=== PATIENT | male | born 1975 | race Caucasian/White ===

== ENCOUNTER 2017-01-17 15:36 | Inpatient (IN) | payer OTHER ==
[~2017-01-17] VITALS: Ht 170.2 cm; Wt 70.8 kg
[2017-01-17] MEDS ORDERED: ONDANSETRON INJ 2 MG/ML 2 ML VIAL IV STA (15:50)
[2017-01-17] MEDS ORDERED: MoRPHine SULFATE 10 MG/ML CARP/VIAL IV STA (15:50)
[2017-01-17] MEDS ORDERED: IBUP-1050 PO (16:13)
--- NOTE | 2017-01-17 16:22 | DIAGNOSTIC IMAGING REPORT ---
CHEST ONE VIEW PORTABLE CLINICAL HISTORY: Sepsis COMPARISON STUDY: No previous studies for comparison. FINDINGS: The cardiac and mediastinal contours are normal. There is no evidence of focal pulmonary consolidation. There is no evidence of failure. No pleural effusions are visualized.[ IMPRESSION: No active disease in the chest. Electronically signed by: Juanjose Stock M.D. 01/17/2017 4:21 PM Dictated Date/Time: 01/17/2017 4:21 PM
--- NOTE | 2017-01-17 16:24 | DIAGNOSTIC IMAGING REPORT ---
RIGHT HAND MIN 3 VIEWS ROUTINE CLINICAL HISTORY: right eval for fx/FB Right trauma. Pain. COMPARISON: None. DISCUSSION: The bones and joint spaces appear intact. There is no evidence of fracture, dislocation or bony disease. There is deformity of the fifth metacarpal secondary to old trauma. Moderate generalized soft tissue edematous change. No evidence for radiopaque foreign body. Very small metallic foreign body adjacent to the proximal phalanx second finger extrinsic to the soft tissue edema. This most likely is a nonacute finding. IMPRESSION: Soft tissue edema. No acute bony abnormality. The above report was generated using voice recognition software. It may contain grammatical, syntax or spelling errors. Electronically signed by: Derian Jara M.D. 01/17/2017 4:23 PM Dictated Date/Time: 01/17/2017 4:21 PM
[2017-01-17] MEDS ORDERED: VANCOMYCIN 1GM/270ML NSS IV STA (16:25)
[2017-01-17 16:58] LABS: BASO % 0.1 %; BASO ABS # 0.01 K/uL (0-0.2); COMPLETE YES; EOS % 1.4 %; HEMATOCRIT 40.4 % (42-52); IG% 0.5 %; LYMPH ABS # 2.59 K/uL (1.2-3.4); MEAN CELL VOLUME 93.1 fL (80-100); MEAN CORPUSCULAR HEMOGLOBIN 31.1 pg (25-34); MEAN CORPUSCULAR HGB CONC 33.4 g/dl (32-36); MEAN PLATELET VOLUME 9.5 fL (7.4-10.4); MONO % 7.6 %; NEUT % 76.4 %; PLATELET COUNT 291 K/uL (130-400); RED BLOOD COUNT 4.34 M/uL (4.7-6.1); WHITE BLOOD COUNT 18.45 K/uL (4.8-10.8)
[2017-01-17 17:12] LABS: INR 0.9 (0.9-1.1); PARTIAL THROMBOPLASTIN RATIO 1.1; PROTHROMBIN TIME (PATIENT) 9.8 SECONDS (9.0-12.0)
[2017-01-17 17:29] LABS: ALB/GLOB RATIO 0.8 (0.9-2)
[2017-01-17] MEDS ORDERED: VANCOMYCIN CONSULT ACTIVE SCH (18:00)
--- NOTE | 2017-01-17 18:02 | EMERGENCY ROOM VISIT NOTE ---
History Report prepared by Lam: Janae Arias Under the Supervision of: Dr. Luis Roque M.D. First contact with patient: 15:45 Chief Complaint: WOUND INFECTION Stated Complaint: FEVER,SWOLLEN L HAND-OPEN WOUND,LUMPS UNDER ARMPIT Nursing Triage Summary: Fell on right hand a few days ago and had thorns and wood in hand, now presenting with swollen lymph nodes in bilateral axilla and right hand/arm edema/redness. History of Present Illness The patient is a 41 year old male who presents to the Emergency Room with complaints of an infection to the right hand worsening over the past two days. About a week ago he was picking blackberries and poked his right hand on a thorn. He states, "I think there's still a thorn stuck in there. I've been digging at it." He notes that over the past two days there has been some dark brown pus draining from his hand. Three days ago the patient fell down some stairs at work and landed on the hand. Yesterday it really started to swell. It is warm to touch and the swelling and warmth extend up his right arm. He also has swelling to the lymph nodes in his arms bilaterally. The patient describes his pain as burning and rates it as an 8/10 in severity. Movement exacerbates his pain. The patient also reports nausea, one episode of vomiting, and a fever with a temperature of 102. Source of History: patient Onset: two days ago Position: hand (right) Symptom Intensity: 8/10 Quality: burning Timing: worsening Modifying Factors (Worsening): movement Associated Symptoms: + fevers, + nausea Note: Pt notes warmth and swelling to the right hand and arm. Review of Systems See HPI for pertinent positives & negatives. A total of 10 systems reviewed and were otherwise negative. Past Medical & Surgical Medical Problems: (1) No significant past medical history Surgical Problems: (1) Hx of tonsillectomy Family History Cancer Diabetes mellitus Heart disease Hypertension Lung disease Social History Smoking Status: Current Every Day Smoker Smokeless Tobacco Use: No Alcohol Use: none Marital Status: Housing Status: lives with family Occupation Status: employed Current/Historical Medications Scheduled Ibuprofen (Advil), 600 MG PO PRN Allergies Coded Allergies: Erythromycin (Verified Adverse Reaction, Severe, GI UPSET & DIZZY, 8/10/17 ) Physical Exam Vital Signs Date Time Temp Pulse Resp B/P (MAP) Pulse Ox O2 Delivery O2 Flow Rate FiO2 01/17/17 17:25 84 16 131/72 98 Room Air 01/17/17 16:52 Room Air 01/17/17 15:39 36.7 87 18 142/82 100 Room Air Physical Exam Constitutional: Vital signs reviewed. Eyes: Pupils are equal round reactive to light. Conjunctiva are noninjected. ENT: Pharynx is clear without erythema or exudate. Mucous membranes are moist. Neck supple without meningeal signs. Respiratory: Clear to auscultation bilaterally. Breath sounds are equal bilaterally. Cardiovascular: Regular rate and rhythm. No rubs or gallops. GI: Soft, nondistended and nontender. Bowel sounds are present. Musculoskeletal: He has an ulcerated lesion to the right 5th metacarpal joint with surrounding soft tissue swelling and diffuse tenderness to the forearm without signs of compartment syndrome. DP intact, right axillary tender lymphadenopathy. No involvement of the fingers. No nodules. Integumentary: As above. Neurological: The patient is awake and alert. No focal deficits. Psychiatric: Normal affect. Medical Decision & Procedures ER Provider Diagnostic Interpretation: Radiology results as stated below per my review and the radiologist's interpretation: RIGHT HAND MIN 3 VIEWS ROUTINE CLINICAL HISTORY: right eval for fx/FB Right trauma. Pain. COMPARISON: None. DISCUSSION: The bones and joint spaces appear intact. There is no evidence of fracture, dislocation or bony disease. There is deformity of the fifth metacarpal secondary to old trauma. Moderate generalized soft tissue edematous change. No evidence for radiopaque foreign body. Very small metallic foreign body adjacent to the proximal phalanx second finger extrinsic to the soft tissue edema. This most likely is a nonacute finding. IMPRESSION: Soft tissue edema. No acute bony abnormality. The above report was generated using voice recognition software. It may contain grammatical, syntax or spelling errors. Electronically signed by: Derian Jara M.D. 01/17/2017 4:23 PM Dictated Date/Time: 01/17/2017 4:21 PM CHEST ONE VIEW PORTABLE CLINICAL HISTORY: Sepsis COMPARISON STUDY: No previous studies for comparison. FINDINGS: The cardiac and mediastinal contours are normal. There is no evidence of focal pulmonary consolidation. There is no evidence of failure. No pleural effusions are visualized.[ IMPRESSION: No active disease in the chest. Electronically signed by: Juanjose Stock M.D. 01/17/2017 4:21 PM Dictated Date/Time: 01/17/2017 4:21 PM Laboratory Results 01/17/17 16:46 Red Blood Count 4.34, Mean Corpuscular Volume 93.1, Mean Corpuscular Hemoglobin 31.1, Mean Corpuscular Hemoglobin Concent 33.4, Mean Platelet Volume 9.5, Neutrophils (%) (Auto) 76.4, Lymphocytes (%) (Auto) 14.0, Monocytes (%) (Auto) 7.6, Eosinophils (%) (Auto) 1.4, Basophils (%) (Auto) 0.1, Neutrophils # (Auto) 14.09, Lymphocytes # (Auto) 2.59, Monocytes # (Auto) 1.41, Eosinophils # (Auto) 0.25, Basophils # (Auto) 0.01 01/17/17 16:46 Test 01/17/17 16:46 01/17/17 16:51 White Blood Count 18.45 K/uL (4.8-10.8) Red Blood Count 4.34 M/uL (4.7-6.1) Hemoglobin 13.5 g/dL (14.0-18.0) Hematocrit 40.4 % (42-52) Mean Corpuscular Volume 93.1 fL (80-100) Mean Corpuscular Hemoglobin 31.1 pg (25-34) Mean Corpuscular Hemoglobin Concent 33.4 g/dl (32-36) Platelet Count 291 K/uL (130-400) Mean Platelet Volume 9.5 fL (7.4-10.4) Neutrophils (%) (Auto) 76.4 % Lymphocytes (%) (Auto) 14.0 % Monocytes (%) (Auto) 7.6 % Eosinophils (%) (Auto) 1.4 % Basophils (%) (Auto) 0.1 % Neutrophils # (Auto) 14.09 K/uL (1.4-6.5) Lymphocytes # (Auto) 2.59 K/uL (1.2-3.4) Monocytes # (Auto) 1.41 K/uL (0.11-0.59) Eosinophils # (Auto) 0.25 K/uL (0-0.5) Basophils # (Auto) 0.01 K/uL (0-0.2) RDW Standard Deviation 46.3 fL (36.4-46.3) RDW Coefficient of Variation 13.5 % (11.5-14.5) Immature Granulocyte % (Auto) 0.5 % Immature Granulocyte # (Auto) 0.10 K/uL (0.00-0.02) Prothrombin Time 9.8 SECONDS (9.0-12.0) Prothromb Time International Ratio 0.9 (0.9-1.1) Activated Partial Thromboplast Time 28.0 SECONDS (21.0-31.0) Partial Thromboplastin Ratio 1.1 Anion Gap 6.0 mmol/L (3-11) Est Creatinine Clear Calc Drug Dose 92.7 ml/min Estimated GFR () 109.4 Estimated GFR (Non- 94.4 BUN/Creatinine Ratio 16.0 (10-20) Calcium Level 9.0 mg/dl (8.5-10.1) Total Bilirubin 0.5 mg/dl (0.2-1) Aspartate Amino Transf (AST/SGOT) 39 U/L (15-37) Alanine Aminotransferase (ALT/SGPT) 73 U/L (12-78) Alkaline Phosphatase 70 U/L (45-117) Total Protein 7.3 gm/dl (6.4-8.2) Albumin 3.3 gm/dl (3.4-5.0) Globulin 4.0 gm/dl (2.5-4.0) Albumin/Globulin Ratio 0.8 (0.9-2) Bedside Lactic Acid Venous 1.78 mmol/L (0.90-1.70) Laboratory results as reviewed by me. Medications Administered Medications (Trade) Dose Ordered Sig/Kamilah Route Start Time Stop Time Status Last Admin Dose Admin Morphine Sulfate (MoRPHine SULFATE INJ) 6 mg NOW STAT IV 01/17/17 15:50 01/17/17 15:53 DC 01/17/17 16:19 6 MG Ondansetron HCl (Zofran Inj) 4 mg NOW STAT IV 01/17/17 15:50 01/17/17 15:53 DC 01/17/17 16:19 4 MG Vancomycin HCl (Vancomycin 1gm/ 270ml Nss) 1 gm NOW STAT IV 01/17/17 16:25 01/17/17 16:26 DC 01/17/17 16:51 1 GM ED Course 1545: The patient was evaluated in room C11B. A complete history and physical exam was performed. 1550: Zofran 4 mg IV, Morphine sulfate 6 mg IV 1625: Vancomycin HCl 1 gm IV 1704: I spoke with Wendy Moore PA-C. We discussed the patients case. The patient will be evaluated by the [facility] for further management. 1710: I reassessed the patient at this time. He is doing well. I discussed the results and treatment plan with the patient. I answered all pertaining questions that he had. He expressed understanding and verbalized agreement. Medical Decision This is a 41-year-old male who presents with right arm pain. Differential diagnosis includes fracture, contusion, cellulitis, retained foreign body, lymphangitis, compartment syndrome, sporotrichosis. I did perform a limited focused review of portions of the patient's old chart on the electronic medical record. The patient has had no recent pertinent visits to this hospital. I did evaluate the patient as noted above. The patient has an obvious infection to his right hand and arm. There is no evidence of tenosynovitis on physical examination. There is no evidence of compartment syndrome. IV access was established. I did treat him with IV morphine and Zofran. Blood cultures were ordered. I did order and personally review the patient's hand and chest x- rays as described above. I did order and review the patient's blood work as noted in the electronic medical record. His white blood cell count is elevated. I did treat him with IV vancomycin. I did discuss the test results with the patient. I did recommend hospitalization for further care and evaluation. I did discuss case with the hospitalist and case sealer. Medication Reconcilliation Current Medication List: was personally reviewed by me Blood Pressure Screening Patient's blood pressure: Elevated blood pressure Blood pressure disposition: Referred to PCP Consults Time Called: 1702 Consulting Physician: Wendy Moore PA-C Returned Call: [phone] I spoke with Wendy Moore PA-C. We discussed the patients case. The patient will be evaluated by the [facility] for further management. Impression Primary Impression: Infection of right hand Additional Impressions: Axillary lymphadenopathy Fever Scribe Attestation The scribe's documentation has been prepared under my direct and personally reviewed by me in its entirety. I confirm that the note above accurately reflects all work, treatment, procedures, and medical decision making performed by me. Departure Information Dispostion Being Evaluated By Hospitalist Referrals No Doctor, Assigned (PCP) Patient Instructions My [facility] Problem Qualifiers Additional Impressions: Fever Fever type: unspecified Qualified Codes: R50.9 - Fever, unspecified
--- NOTE | 2017-01-17 18:12 | Pharmacy Progress Note ---
Pharmacy Abx Initial Consult Date of Service Jan 17, 2017. Pharmacy Dosing Scope Date of Consult: 01/17/17 Consultation requested by: Carmita Moore PA-C Pharmacy is consulted to initiate Vancomycin IV dosing therapy, order appropriate labs and adjust drug dose/frequency. Subjective The patient is a 41 year old male admitted on 01/17/17 with right hand cellulitis. Pt punctured hand 2 weeks ago then 3 days ago fell and landed on his hand, leading to increased swelling erythema, warmth, throbbing pain, purulent drainage. No known PMH. Objective Height (Feet): 5 Height (Inches): 7 Weight (Kilograms): 70.80 Vital Signs (Past 12Hrs) Item Value Date Time Creatinine 1.00 mg/dl 01/17/17 1646 Est Creatinine Clear Calc Drug Dose 92.7 ml/min 01/17/17 1646 Vital Signs Past 12 Hours Date Time Temp Pulse Resp B/P (MAP) Pulse Ox O2 Delivery O2 Flow Rate FiO2 01/17/17 17:25 84 16 131/72 98 Room Air 01/17/17 16:52 Room Air 01/17/17 15:39 36.7 87 18 142/82 100 Room Air Lab Results (24Hrs) Laboratory Tests (24 Hours) Test 01/17/17 16:46 White Blood Count 18.45 K/uL (4.8-10.8) H Red Blood Count 4.34 M/uL (4.7-6.1) L Hemoglobin 13.5 g/dL (14.0-18.0) L Hematocrit 40.4 % (42-52) L Mean Corpuscular Volume 93.1 fL (80-100) Mean Corpuscular Hemoglobin 31.1 pg (25-34) Mean Corpuscular Hemoglobin Concent 33.4 g/dl (32-36) Platelet Count 291 K/uL (130-400) Mean Platelet Volume 9.5 fL (7.4-10.4) Neutrophils (%) (Auto) 76.4 % Lymphocytes (%) (Auto) 14.0 % Monocytes (%) (Auto) 7.6 % Eosinophils (%) (Auto) 1.4 % Basophils (%) (Auto) 0.1 % Neutrophils # (Auto) 14.09 K/uL (1.4-6.5) H Lymphocytes # (Auto) 2.59 K/uL (1.2-3.4) Monocytes # (Auto) 1.41 K/uL (0.11-0.59) H Eosinophils # (Auto) 0.25 K/uL (0-0.5) Basophils # (Auto) 0.01 K/uL (0-0.2) Micro Results Date/Time Source Procedure Growth Status 01/17/17 16:45 Blood Blood Culture Pending Received 01/17/17 16:37 Blood Blood Culture Pending Received Assessment & Plan Assessment 41 year old male admitted with right hand cellulitis, starting on IV Vancomycin. Plan IV Vancomycin for treatment of cellulitis Vancomycin IV * Loading dose: 1000 mg (14 mg/kg) x 1 dose in ED at 1651 * Maintenance dose: 1100 mg IV (15 mg/kg) every 12 hours, starting at 2000, since pt not loaded with normal 25mg/kg dose * Estimated pharmacokinetic parameters: T1/2 = 8.5hrs, Pete = 0.082/hr, Vd = 0.7L /Kg * Goal trough level for cellulitis : ~15 mcg/mL * Trough level ordered for 01/19/17 prior to 0800 dose, this will be after 4 total doses Pharmacy will continue to follow and will adjust dose/frequency as necessary. Thank you.
--- NOTE | 2017-01-17 18:13 | History and Physical ---
History & Physical Date & Time of Service: Jan 17, 2017 at 17:40 Chief Complaint: Fever,Swollen L Hand-Open Wound,Lumps Under Armpit Primary Care Physician: No Doctor, Assigned History of Present Illness Source: patient, other (no records available) This is a 41 year old male with no known medical history who presents to the ED with right hand infection. Patient reports being punctured with a thorn 2 weeks ago, felt it may have been infected, but did not see a physician. 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 From that time developed increased swelling, erythema, warmth, throbbing pain, purulent drainage. It is painful for him to move the wrist and the fingers. No numbness. For past few days has tender swollen lymph nodes in bilateral axilla. He reports associated fever of 102 F at home. He vomited x 1 two days ago after eating breakfast at a diner. No diarrhea. Reports having tetanus vaccine within the past 1 year. No history of diabetes. Past Medical/Surgical History Medical Problems: (1) No significant past medical history Status: Chronic Surgical Problems: (1) Hx of tonsillectomy Status: Resolved Family History Cancer Diabetes mellitus Heart disease Hypertension Lung disease Social History Smoking Status: Current Every Day Smoker (1/2 ppd) Alcohol Use: none Drug Use: none Marital Status: Allergies Coded Allergies: Erythromycin (Verified Adverse Reaction, Severe, GI UPSET & DIZZY, 01/17/17 ) Home Medications Scheduled Ibuprofen (Advil), 600 MG PO PRN Review of Systems Ten systems reviewed and negative except as noted in HPI. Physical Exam Vital Signs Date Time Temp Pulse Resp B/P (MAP) Pulse Ox O2 Delivery O2 Flow Rate FiO2 01/17/17 17:25 84 16 131/72 98 Room Air 01/17/17 16:52 Room Air 01/17/17 15:39 36.7 87 18 142/82 100 Room Air General Appearance: WD/WN, + pertinent finding (appears uncomfortable due to pain. at bedside. ) Head: normocephalic, atraumatic Eyes: normal inspection, EOMI, sclerae normal ENT: normal ENT inspection, hearing grossly normal Neck: supple, trachea midline Respiratory/Chest: lungs clear, normal breath sounds, no respiratory distress, no accessory muscle use Cardiovascular: regular rate, rhythm, no murmur Abdomen/GI: non tender, soft Extremities/Musculoskelatal: no pedal edema, + pertinent finding (severely limited ROM of right wrist and fingers due to pain) Neurologic/Psych: alert, normal mood/affect, oriented x 3, + pertinent finding (sensation intact right fingers) Skin: + pertinent finding (erythema, swelling, tenderness, and warmth on dorsal aspect of right hand. there a small ulceration which is dried without active drainage. no fluctuation. tenderness extends to wrist and shelter up forearm however no streaking.) Lymphatic: + pertinent finding (lymphadenopathy bilateral axillae) Diagnostics Laboratory Results Results Past 24 Hours Test 01/17/17 16:46 01/17/17 16:51 Range/Units White Blood Count 18.45 4.8-10.8 K/uL Red Blood Count 4.34 4.7-6.1 M/uL Hemoglobin 13.5 14.0-18.0 g/dL Hematocrit 40.4 42-52 % Mean Corpuscular Volume 93.1 80-100 fL Mean Corpuscular Hemoglobin 31.1 25-34 pg Mean Corpuscular Hemoglobin Concent 33.4 32-36 g/dl Platelet Count 291 130-400 K/uL Mean Platelet Volume 9.5 7.4-10.4 fL Neutrophils (%) (Auto) 76.4 % Lymphocytes (%) (Auto) 14.0 % Monocytes (%) (Auto) 7.6 % Eosinophils (%) (Auto) 1.4 % Basophils (%) (Auto) 0.1 % Neutrophils # (Auto) 14.09 1.4-6.5 K/uL Lymphocytes # (Auto) 2.59 1.2-3.4 K/uL Monocytes # (Auto) 1.41 0.11-0.59 K/uL Eosinophils # (Auto) 0.25 0-0.5 K/uL Basophils # (Auto) 0.01 0-0.2 K/uL RDW Standard Deviation 46.3 36.4-46.3 fL RDW Coefficient of Variation 13.5 11.5-14.5 % Immature Granulocyte % (Auto) 0.5 % Immature Granulocyte # (Auto) 0.10 0.00-0.02 K/uL Prothrombin Time 9.8 9.0-12.0 SECONDS Prothromb Time International Ratio 0.9 0.9-1.1 Activated Partial Thromboplast Time 28.0 21.0-31.0 SECONDS Partial Thromboplastin Ratio 1.1 Sodium Level 135 136-145 mmol/L Potassium Level 4.0 3.5-5.1 mmol/L Chloride Level 101 98-107 mmol/L Carbon Dioxide Level 28 21-32 mmol/L Anion Gap 6.0 3-11 mmol/L Blood Urea Nitrogen 16 7-18 mg/dl Creatinine 1.00 0.60-1.40 mg/dl Est Creatinine Clear Calc Drug Dose 92.7 ml/min Estimated GFR () 109.4 Estimated GFR (Non- 94.4 BUN/Creatinine Ratio 16.0 10-20 Random Glucose 93 70-99 mg/dl Calcium Level 9.0 8.5-10.1 mg/dl Total Bilirubin 0.5 0.2-1 mg/dl Aspartate Amino Transf (AST/SGOT) 39 15-37 U/L Alanine Aminotransferase (ALT/SGPT) 73 12-78 U/L Alkaline Phosphatase 70 45-117 U/L Total Protein 7.3 6.4-8.2 gm/dl Albumin 3.3 3.4-5.0 gm/dl Globulin 4.0 2.5-4.0 gm/dl Albumin/Globulin Ratio 0.8 0.9-2 Bedside Lactic Acid Venous 1.78 0.90-1.70 mmol/L Microbiology Results 01/17/17 Blood Culture, Received Pending 01/17/17 Blood Culture, Received Pending Diagnostic Radiology CHEST ONE VIEW PORTABLE IMPRESSION: No active disease in the chest. RIGHT HAND MIN 3 VIEWS ROUTINE CLINICAL HISTORY: right eval for fx/FB Right trauma. Pain. COMPARISON: None. DISCUSSION: The bones and joint spaces appear intact. There is no evidence of fracture, dislocation or bony disease. There is deformity of the fifth metacarpal secondary to old trauma. Moderate generalized soft tissue edematous change. No evidence for radiopaque foreign body. Very small metallic foreign body adjacent to the proximal phalanx second finger extrinsic to the soft tissue edema. This most likely is a nonacute finding. IMPRESSION: Soft tissue edema. No acute bony abnormality. RIGHT ELBOW MIN 3 VIEWS ROUTINE CLINICAL HISTORY: cellulitis Right pain. Edema. COMPARISON: None. DISCUSSION: The bones and joint spaces appear intact. There is no evidence of fracture, dislocation or bony disease. Generalized soft tissue edema. IMPRESSION: Soft tissue edema. No acute bony abnormality. 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 Cline is air traffic control specialist if there is any worsening overnight, otherwise patient will be seen in the morning BILATERAL AXILLARY LYMPHADENOPATHY May be due to above infection, however will test for HIV- patient gives consent FULL CODE DISPOSITION Admission to med/ surg Patient seen in collaboration with Dr. Zavaleta. Please see his addendum. Attending Physician Addendum I have examined the patient and agree with LILIANE Moore's findings and plans with additional comments: This is a 41 year old M with cellulitis for 1 to 2 weeks for which he has not sought medical care until today with initial injury as per patient from getting pricked by a thorn 2 weeks ago and 1 week ago he had fell down and landed on the affected hand with recent reported fever at home of 102F. Labs significant for leukocytosis of 18,000. Patient's imaging scans at this time shows inflammation of right wrist and arm but no evidence of fascitis. However because of concern for risk of fascitis the medicine hospitalist team is consulting with orthopedic service for their evaluation. Patient's exam significant for a recently healed scar over metatarsal of right hand without purulence, inability to clench his right fist, with tenderness on palpation up to mid forearm and bilateral tender axillary adenopathy. He appears fatigued but is awake and alert and answers questions appropriately and breathing comfortably on room air. His heart is regular in rate and rhythm. There are no other skin findings in other areas of the body. He reports that he is up to date with TDAP 1 year ago. Vancomycin 1 gram IV was ordered by the ED. Will increase broad spectrum antibiotic coverage to Vancomycin 1250 mg q12 hours and Zosyn 3.375 q6 hours until blood cultures return for antibiotic deescalation or clinical improvements. Give DVT prophylaxis, IV fluid, antiemetics and encourage PO intake Level of Care Med/Surg Social Service Consult None Apply
[2017-01-17] MEDS ORDERED: ACETAMINOPHEN 325 MG TAB PO PRN (18:15)
--- NOTE | 2017-01-17 18:23 | DIAGNOSTIC IMAGING REPORT ---
RIGHT ELBOW MIN 3 VIEWS ROUTINE CLINICAL HISTORY: cellulitis Right pain. Edema. COMPARISON: None. DISCUSSION: The bones and joint spaces appear intact. There is no evidence of fracture, dislocation or bony disease. Generalized soft tissue edema. IMPRESSION: Soft tissue edema. No acute bony abnormality. The above report was generated using voice recognition software. It may contain grammatical, syntax or spelling errors. Electronically signed by: Derian Jara M.D. 01/17/2017 6:21 PM Dictated Date/Time: 01/17/2017 6:21 PM
[2017-01-17] MEDS ORDERED: METOCLOPRAMIDE HCL INJ 5 MG/ML 2 ML VIAL IV PRN (18:30)
[2017-01-17] MEDS ORDERED: PIPERACILL/TAZOBAC CONSULT ACTIVE PRN (18:30)
--- NOTE | 2017-01-17 18:35 | DIAGNOSTIC IMAGING REPORT ---
ULTRASOUND RIGHT VENOUS DOPPLER UPR EXT UNILAT CLINICAL HISTORY: Right upper extremity swelling. POSSIBLE ABSCESS, fever, left hand open wound. COMPARISON STUDY: No previous studies for comparison. FINDINGS: No intraluminal thrombus was visualized. The internal jugular, subclavian, axillary, cephalic, brachial, basilic, radial, and ulnar veins were patent. There are no fluid collections suspicious for an abscess. IMPRESSION: No evidence of right upper extremity DVT. Electronically signed by: Juanjose Stock M.D. 01/17/2017 6:34 PM Dictated Date/Time: 01/17/2017 6:33 PM
[2017-01-17 19:00] VITALS: BP 113/72; PULSE 81; TEMP 37.3; O2SAT 100; Ht 170.2 cm; Wt 70.8 kg
[2017-01-17] MEDS ORDERED: D5W AND 1/2NSS 1,000 ML IV ONE (19:40)
[2017-01-17] MEDS ORDERED: PIPERACILL/TAZOBAC IV 3.375 GM in DEXTROSE 5% 100ML IV ONE (20:00)
[2017-01-17] MEDS ORDERED: TRAMADOL HCL 50 MG TAB PO PRN (20:30)
[2017-01-17] MEDS ORDERED: TRAMADOL HCL 50 MG TAB ONE (20:39)
[2017-01-17] MEDS: VANCOMYCIN INJ 1,100 MG in SODIUM CHLORIDE 0.9% 250ML 250 ML IV SCH (20:40)
[2017-01-17] MEDS ORDERED: OPTIRAY 320 IV PRN (20:45)
--- NOTE | 2017-01-17 21:25 | DIAGNOSTIC IMAGING REPORT ---
RIGHT UPPER EXTREMITY WITH CLINICAL HISTORY: rule out abscess Right pain. Edema. TECHNIQUE: Transaxial acquisition with multi axial reformatted images COMPARISON STUDY: Venous Doppler 01/17/2017 FINDINGS: Mild generalized soft tissue edema. No evidence for abscess or collection within the limitations of limited resolution. Cortical margins of the radius and ulna appear to be intact. IMPRESSION: Mild generalized soft tissue edema. No evidence for abscess or collection within limitations of this modality The above report was generated using voice recognition software. It may contain grammatical, syntax or spelling errors. Electronically signed by: Derain Jara M.D. 01/17/2017 9:24 PM Dictated Date/Time: 01/17/2017 9:22 PM
[2017-01-17 23:28] VITALS: BP 122/72; PULSE 82; TEMP 37.1; O2SAT 94
[2017-01-18] VITALS (7 sets, daily range): BP systolic 111–129; BP diastolic 64–81; PULSE 70–84; TEMP 36.7–36.8; O2SAT 96–99
[2017-01-18] MEDS: PIPERACILL/TAZOBAC IV 3.375 GM in DEXTROSE 5% 100ML 100 ML IV SCH ×3 (03:44→20:39)
[2017-01-18 07:09] LABS: BASO % 0.1 %; BASO ABS # 0.01 K/uL (0-0.2); COMPLETE YES; EOS % 2.3 %; HEMATOCRIT 43.3 % (42-52); IG% 0.7 %; LYMPH % 13.2 %; LYMPH ABS # 1.98 K/uL (1.2-3.4); MEAN CELL VOLUME 92.9 fL (80-100); MEAN CORPUSCULAR HEMOGLOBIN 30.7 pg (25-34); MEAN PLATELET VOLUME 9.8 fL (7.4-10.4); MONO % 8.2 %; NEUT % 75.5 %; PLATELET COUNT 273 K/uL (130-400); RED BLOOD COUNT 4.66 M/uL (4.7-6.1); WHITE BLOOD COUNT 15.02 K/uL (4.8-10.8)
[2017-01-18 07:40] LABS: BUN/CREATININE RATIO 14.1 (10-20); CALCIUM 9.1 mg/dl (8.5-10.1); POTASSIUM 4.3 mmol/L (3.5-5.1)
[2017-01-18 07:43] LABS: ALB/GLOB RATIO 0.7 (0.9-2)
[2017-01-18] MEDS: OXYCODONE HCL IR 5 MG TAB (IMMEDIATE RELEASE) PO PRN ×3 (08:08→20:28)
[2017-01-18] MEDS: VANCOMYCIN INJ 1,100 MG in SODIUM CHLORIDE 0.9% 250ML 250 ML IV SCH ×2 (08:09→20:39)
--- NOTE | 2017-01-18 10:06 | Orthopedic Progress Note ---
Orthopedic Progress Note Date of Service Jan 18, 2017. Subjective Additional Notes: 41-year-old white male who we've been asked to see for a right hand cellulitis. Patient states that approximately 2 weekends ago, he was picking blackberries. He had gotten into the thicker portion of the bushes where he received multiple poke wounds from briars. He states that he was cleaning these areas out and had noticed that the area over his right fifth MP joint was starting to have a small amount of erythema and pus. He continued to clean this wound and then went to work out of state in [place]. He feels that the infection of this area was pseudo-under control however he ended up tripping and falling down some stairs at a motel he was staying at an [place]. He fell onto his outstretched right hand. Since that time he states that the hand began to get worse as far as erythema, swelling, and pain. Finally got to the point where he could no longer take the pain and he came into the emergency room. He states that he was not taking any antibiotics prior to coming into the emergency room. He states he was having some fevers and chills prior to coming in to be seen. Past medical history: benign Past Surgical Hx : Tonsillectomy Family History Cancer Diabetes mellitus Heart disease Hypertension Lung disease Social History Smoking Status: Current Every Day Smoker (1/2 ppd) Alcohol Use: none Drug Use: none Marital Status: Allergies Coded Allergies: Erythromycin (Verified Adverse Reaction, Severe, GI UPSET & DIZZY, 01/17/17 ) Home Medications Scheduled Ibuprofen (Advil), 600 MG PO PRN Objective On examination of the patient's right upper extremity is noted that he has an area over his fifth MP joint that has purulence in that area with a small opening that has a small amount of purulent looking drainage. that area looks to measure over a little over a centimeter in width and length. He has moderate erythema over the fifth metacarpal and going in close to the fourth metacarpal area on the dorsum of the hand. He has moderate swelling over the whole dorsum of the hand. Fingers 2 through 5 have mild to moderate swelling. Thumb does not seem to be as affected. He has moderate pain on palpation from the dorsum of the hand up to the right elbow. The forearm is soft and does not appear to have as much swelling as there is distally but he is painful on palpation. No obvious striations going up the forearm. Elbow is tender on palpation. No obvious swelling. ROM of the elbow seems to cause him discomfort but seems to be more in the forearm,wrist and hand. Just moving the RUE causes him discomfort. Having pain radiating up to his axilla. Mild palpation of his third through fifth fingers causes him discomfort. Passive dorsiflexion of the thumb and index finger does not cause any increased pain. Passive dorsiflexion of the third through fifth fingers causes him exquisite tenderness up the hand to the wrist. He has very limited range of motion of his fingers at this time except for the thumb and index finger. Capillary refill of the fingers is approximately 2 seconds. During the exam, his states that he has a small pustule on his left knee. He received this at the same time when he did his initial injury to his hand. On looking at the left knee, he has a small area that has mild erythema and what appears to be purulence under the skin with a black center where a thorn had entered the skin. Palpation around this area causes him increased tenderness. No areas of large erythema. No striations. Knee ROM appears to be wnl. Date Time Temp Pulse Resp B/P (MAP) Pulse Ox O2 Delivery O2 Flow Rate FiO2 01/18/17 07:15 36.8 71 16 115/69 (84) 96 Room Air 01/17/17 23:45 Room Air 01/17/17 23:28 37.1 82 17 122/72 (89) 94 Room Air 01/17/17 19:00 37.3 81 18 113/72 100 Room Air 01/17/17 19:00 Room Air 01/17/17 18:53 86 18 115/74 98 01/17/17 17:25 84 16 131/72 98 Room Air 01/17/17 16:52 Room Air 01/17/17 15:39 36.7 87 18 142/82 100 Room Air Laboratory Results 24 Hours: Test 01/17/17 16:46 01/18/17 06:23 White Blood Count 18.45 K/uL 15.02 K/uL Red Blood Count 4.34 M/uL 4.66 M/uL Hemoglobin 13.5 g/dL 14.3 g/dL Hematocrit 40.4 % 43.3 % Mean Corpuscular Volume 93.1 fL 92.9 fL Mean Corpuscular Hemoglobin 31.1 pg 30.7 pg Mean Corpuscular Hemoglobin Concent 33.4 g/dl 33.0 g/dl Platelet Count 291 K/uL 273 K/uL Mean Platelet Volume 9.5 fL 9.8 fL Neutrophils (%) (Auto) 76.4 % 75.5 % Lymphocytes (%) (Auto) 14.0 % 13.2 % Monocytes (%) (Auto) 7.6 % 8.2 % Eosinophils (%) (Auto) 1.4 % 2.3 % Basophils (%) (Auto) 0.1 % 0.1 % Neutrophils # (Auto) 14.09 K/uL 11.35 K/uL Lymphocytes # (Auto) 2.59 K/uL 1.98 K/uL Monocytes # (Auto) 1.41 K/uL 1.23 K/uL Eosinophils # (Auto) 0.25 K/uL 0.34 K/uL Basophils # (Auto) 0.01 K/uL 0.01 K/uL Prothromb Time International Ratio 0.9 Prothrombin Time 9.8 SECONDS Assessment & Plan Assessment: Infection Right 5th MP Joint with possible Tenosynovitis Cellulitis Right hand Plan: Keep NPO Will plan on further eval by Dr Vivas this afternoon and likely I&D Continue IV antibx
[2017-01-18] MEDS ORDERED: BACITRACIN 50000 UNIT VIAL ONE (14:54)
[2017-01-18] MEDS ORDERED: LIDOCAINE HCL 2% 2 ML VIAL (20MG/ML) ONE (14:57)
[2017-01-18] MEDS ORDERED: MIDAZOLAM HCL 1 MG/ML 2ML VIAL ONE (14:57)
[2017-01-18] MEDS ORDERED: PROPOFOL IV EMULSION 10 MG/ML 20 ML VIAL IV ONE (14:57)
[2017-01-18] MEDS ORDERED: FENTANYL CITRATE INJ 50 MCG/1 ML 2 ML VIAL ONE (14:57)
[2017-01-18] MEDS ORDERED: BUPIVACAINE 0.5 % 5 MG/1 ML MPF 30ML VIAL ONE (15:21)
--- NOTE | 2017-01-18 15:29 | History & Physical Bridge Note ---
H&P Re-Evaluation Bridge Note: I have examined the patient, reviewed the History & Physical and in the interval since the performance of the History & Physical I have noted the following changes of clinical significance: I saw and examined pt in the pre-op holding area. has dorsal absecess, likely septic PIP joint. will plan for right hand arthrotomy and drainage of septic MPO joint 5th digit. No changes noted
[2017-01-18] MEDS ORDERED: ONDANSETRON INJ 2 MG/ML 2 ML VIAL IV PRN ×2 (16:00→17:00)
[2017-01-18] MEDS ORDERED: KETOROLAC TROMETHAMINE 30 MG/ML VIAL IV. PRN (16:00)
[2017-01-18] MEDS ORDERED: ATROPINE SULFATE 0.1 MG/ML 5ML SYR IV PRN (16:00)
[2017-01-18] MEDS ORDERED: HYDROmorphone INJ 2 MG/ML SYR/VIAL IV PRN (16:00)
[2017-01-18] MEDS ORDERED: LABETALOL HCL IV 5 MG/ML 20ML IV PRN (16:00)
[2017-01-18] MEDS ORDERED: ONDANSETRON INJ 2 MG/ML 2 ML VIAL ONE (16:24)
[2017-01-18] MEDS ORDERED: DEXAMETHASONE SOD INJ 4 MG/ML VIAL ONE (16:24)
--- NOTE | 2017-01-18 17:03 | [facility] Post Operative Brief Note ---
Immediate Operative Summary Operative Date Jan 18, 2017. Pre-Operative Diagnosis Right MCP joint infection, Right hand abscess Post-Operative Diagnosis Same as preoperative diagnosis Procedure(s) Performed Irrigation and debridement right hand abcess, arthrotomy and drainage of MCP joint abcess Surgeon Dr. Vivas Maintenance Controller Surgeon(s) None Estimated Blood Loss 10ml Findings gross pus in hand Specimens a. culture aerobic, anerobic, gram, fungus right mcp joint Drains no Anesthesia gen Complication(s) None Disposition Recovery Room / PACU
--- NOTE | 2017-01-18 17:04 | Anesthesiology Progress Note ---
Anesthesia Post Op Note Date & Time Jan 18, 2017 at 17:04 Vital Signs Pain Intensity: 1 Vital Signs Past 12 Hours Date Time Temp Pulse Resp B/P (MAP) Pulse Ox O2 Delivery O2 Flow Rate FiO2 01/18/17 16:56 36.5 124/76 01/18/17 16:55 71 14 96 01/18/17 16:55 71 14 01/18/17 16:51 115/74 01/18/17 16:50 72 12 01/18/17 16:50 72 12 97 01/18/17 16:46 120/78 01/18/17 16:45 69 14 01/18/17 16:45 69 14 98 01/18/17 16:41 125/75 01/18/17 16:40 70 14 99 01/18/17 16:40 70 14 01/18/17 16:36 124/72 01/18/17 16:35 69 15 100 01/18/17 16:35 69 15 01/18/17 16:31 110/69 01/18/17 16:30 70 12 100 01/18/17 16:30 70 12 01/18/17 16:26 115/72 01/18/17 16:25 69 12 01/18/17 16:25 69 12 100 01/18/17 16:21 115/67 01/18/17 16:20 68 12 01/18/17 16:20 69 12 100 01/18/17 16:18 118/63 01/18/17 16:15 36.4 68 18 118/63 100 Mask 10 01/18/17 14:54 36.8 77 20 116/70 (85) 98 Room Air 01/18/17 08:10 Room Air 01/18/17 07:15 36.8 71 16 115/69 (84) 96 Room Air Notes Mental Status: alert / awake / arousable, participated in evaluation Pt Amnestic to Procedure: Yes Nausea / Vomiting: adequately controlled Pain: adequately controlled Airway Patency, RR, SpO2: stable & adequate BP & HR: stable & adequate Hydration State: stable & adequate Anesthetic Complications: no major complications apparent
[2017-01-18] MEDS: MoRPHine SULFATE 2 MG/ML CARP IV PRN ×3 (17:23→23:19)
--- NOTE | 2017-01-18 19:16 | OPERATIVE REPORT ---
DATE OF OPERATION: 01/18/2017 PREOPERATIVE DIAGNOSIS: Abscess of his right hand septic metacarpophalangeal joint. POSTOPERATIVE DIAGNOSIS: Same. PROCEDURE: 1. Right and I&D abscess. 2. Right hand arthrotomy and drainage and MCP joint. SURGEON: Dr. Vivas. BRUSH SANDER: None. ANESTHESIA: General. INDICATIONS: This is a 41-year-old gentleman who states that he was picking blueberries and he sustained a thorn injury to the right hand. He notes increasing pain and swelling in the right hand. The patient admits to a remote history of intravenous drug abuse in the past. I saw him in the preoperative holding area. Discussed risks, benefits, reasonable outcomes for irrigation and debridement of the hand. I discussed the possibility of stiffness, loss of motion, need for further surgery, etc. The risks and benefits have been discussed including, but not limited to, risk of infection, nerve injury, stiffness, loss of motion, failure to improve, etc. The patient is agreeable and wishes to proceed. DESCRIPTION OF PROCEDURE: I did discuss the operation. A tourniquet was applied and inflated at the beginning of the case. I made a longitudinal incision over the area of pointing. The patient had gross purulent drainage. This was sent for cultures given that it was a chastity navarro injury also sent this for fungal culture. There was an abscess encountered in the subcutaneous tissues and this was in the region of the extensor tendons as well. I debrided infection off the extensor tendons and then I performed irrigation and debridement of abscess. I then made a small arthrotomy into the MP joint, fluid was encountered in the MP joint. I then performed a formal arthrotomy and drainage of the MCP joint cleaning the area out well. The area was irrigated with 3 liters of normal saline. The area did look clean after irrigation and debridement. Debridement was performed of skin, subcutaneous tissue and fascia. This was an area of approximately 1 x 2 cm. Debridement was performed with curettes, rongeurs, scalpel and scissors. The incision was loosely closed with 4-0 nylon in a mattress fashion and packing was applied. The patient was placed in a soft dressing and sent the PACU in stable condition. Postoperative plan will be elevation and range of motion as tolerated. We will monitor cultures. The wound did have appearance typical of bacterial infection. I attest to the content of the Intraoperative Record and any orders documented therein. Any exception s are noted below.
--- NOTE | 2017-01-18 20:20 | Progress Note ---
Medicine Progress Note Date & Time of Visit: Jan 18, 2017 at ~ 16:00 . Subjective Severe right hand pain. No fever, but having some sweats. No nausea, vomiting, diarrhea. . Objective Last 8 Hrs Date Time Temp Pulse Resp B/P (MAP) Pulse Ox O2 Delivery O2 Flow Rate FiO2 01/18/17 20:05 36.7 74 18 120/75 (90) 96 Room Air 01/18/17 19:05 36.8 71 18 129/81 (97) 97 Room Air 01/18/17 18:05 36.7 79 18 125/64 (84) 98 Room Air 01/18/17 17:35 70 18 125/78 (94) 99 Room Air 01/18/17 17:05 Room Air 01/18/17 17:05 36.7 71 20 127/76 (93) 96 Room Air 01/18/17 16:56 36.5 124/76 01/18/17 16:55 71 14 96 01/18/17 16:55 71 14 01/18/17 16:51 115/74 01/18/17 16:50 72 12 01/18/17 16:50 72 12 97 01/18/17 16:46 120/78 01/18/17 16:45 69 14 01/18/17 16:45 69 14 98 01/18/17 16:41 125/75 01/18/17 16:40 70 14 99 01/18/17 16:40 70 14 01/18/17 16:36 124/72 01/18/17 16:35 69 15 100 01/18/17 16:35 69 15 01/18/17 16:31 110/69 01/18/17 16:30 70 12 100 01/18/17 16:30 70 12 01/18/17 16:26 115/72 01/18/17 16:25 69 12 01/18/17 16:25 69 12 100 01/18/17 16:21 115/67 01/18/17 16:20 68 12 01/18/17 16:20 69 12 100 01/18/17 16:18 118/63 01/18/17 16:15 36.4 68 18 118/63 100 Mask 10 01/18/17 14:54 36.8 77 20 116/70 (85) 98 Room Air Physical Exam: General- appears to be uncomfortable Lungs- clear Heart- RRR Abdomen- + BS, soft, nontender Extremities- abscess dorsum right hand; nodular lesion left leg inferior to knee ; no pretibial edema or calf tenderness Lymphatics- bilat axillary adenopathy Neuro- alert . Laboratory Results: Last 24 Hours Test 01/18/17 06:23 White Blood Count 15.02 K/uL Red Blood Count 4.66 M/uL Hemoglobin 14.3 g/dL Hematocrit 43.3 % Mean Corpuscular Volume 92.9 fL Mean Corpuscular Hemoglobin 30.7 pg Mean Corpuscular Hemoglobin Concent 33.0 g/dl Platelet Count 273 K/uL Mean Platelet Volume 9.8 fL Neutrophils (%) (Auto) 75.5 % Lymphocytes (%) (Auto) 13.2 % Monocytes (%) (Auto) 8.2 % Eosinophils (%) (Auto) 2.3 % Basophils (%) (Auto) 0.1 % Neutrophils # (Auto) 11.35 K/uL Lymphocytes # (Auto) 1.98 K/uL Monocytes # (Auto) 1.23 K/uL Eosinophils # (Auto) 0.34 K/uL Basophils # (Auto) 0.01 K/uL RDW Standard Deviation 46.5 fL RDW Coefficient of Variation 13.7 % Immature Granulocyte % (Auto) 0.7 % Immature Granulocyte # (Auto) 0.11 K/uL Sodium Level 137 mmol/L Potassium Level 4.3 mmol/L Chloride Level 102 mmol/L Carbon Dioxide Level 28 mmol/L Anion Gap 7.0 mmol/L Blood Urea Nitrogen 14 mg/dl Creatinine 1.00 mg/dl Est Creatinine Clear Calc Drug Dose 92.7 ml/min Estimated GFR () 109.4 Estimated GFR (Non- 94.4 BUN/Creatinine Ratio 14.1 Random Glucose 104 mg/dl Calcium Level 9.1 mg/dl Total Bilirubin 0.5 mg/dl Aspartate Amino Transf (AST/SGOT) 36 U/L Alanine Aminotransferase (ALT/SGPT) 67 U/L Alkaline Phosphatase 67 U/L Total Protein 7.1 gm/dl Albumin 3.0 gm/dl Globulin 4.1 gm/dl Albumin/Globulin Ratio 0.7 Date/Time Source Procedure Growth Status 01/18/17 15:15 Joint Fluid/Space (Synovial) Carpophalangeal Fungal Smear Pending Received 01/18/17 15:15 Joint Fluid/Space (Synovial) Carpophalangeal Fungal Culture Pending Received 01/18/17 15:15 Joint Fluid/Space (Synovial) Carpophalangeal Gram Stain - Final Resulted 01/18/17 15:15 Joint Fluid/Space (Synovial) Carpophalangeal Bacterial Culture Pending Resulted 01/18/17 15:15 Drainage-Deep Carpophalangeal Fungal Smear Pending Received 01/18/17 15:15 Drainage-Deep Carpophalangeal Fungal Culture Pending Received Assessment & Plan ABSCESS RIGHT HAND Ortho consulted for I&D. Continue IV vancomycin and piperacillin / tazobactam. Consult ID when culture info available. ADENOPATHY Bilateral axillary adenopathy ? secondary to systemic infection. HIV testing pending. May need further evaluation. VTE PROPHYLAXIS Low risk. Ambulate. DISPOSITION Expected discharge to home. Will need outpatient f/u for above concerns. . Current Inpatient Medications: Current Inpatient Medications Medications (Trade) Dose Ordered Sig/Kamilah Route Start Time Stop Time Status Last Admin Dose Admin Vancomycin HCl (Consult) 1 ea UD N/A 01/17/17 18:00 02/16/17 17:59 Vancomycin HCl 1100 mg/Sodium Chloride 272 ml @ 125 mls/hr Q12@0800,1999 IV 01/17/17 20:00 01/27/17 19:59 01/18/17 08:09 125 MLS/HR Piperacillin Sod/ Tazobactam Sod 3.375 gm/Dextrose 115 ml @ 28.75 mls/ hr Q8@0400,1200,1999 IV 01/18/17 04:00 01/28/17 03:59 01/18/17 12:50 28.75 MLS/HR Acetaminophen (Tylenol Tab) 325 mg Q4H PRN PO 01/17/17 18:15 02/16/17 18:14 Piperacillin Sod/ Tazobactam Sod (Consult) 1 ea UD PRN N/A 01/17/17 18:30 02/16/17 18:29 Metoclopramide HCl (Reglan Inj) 10 mg Q6H PRN IV 01/17/17 18:30 02/16/17 18:29 Tramadol HCl (Ultram Tab) 50 mg Q6H PRN PO 01/17/17 20:30 02/16/17 20:29 01/18/17 03:59 50 MG Ioversol (Optiray 320) 100 ml UD PRN IV 01/17/17 20:45 01/21/17 20:44 Oxycodone HCl (Roxicodone Immediate Rel Tab) 10 mg Q6H PRN PO 01/18/17 14:45 01/31/17 20:44 Ondansetron HCl (Zofran Inj) 4 mg ONE PRN IV 01/18/17 16:00 01/18/17 21:00 Atropine Sulfate (Atropine Sulfate 0.1MG/Ml Inj) 0.5 mg Q1M PRN IV 01/18/17 16:00 01/18/17 21:00 Ketorolac Tromethamine (Toradol Inj) 30 mg ONE PRN IV. 01/18/17 16:00 01/18/17 21:00 Hydromorphone HCl (Dilaudid Inj) 0.5 mg Q5M PRN IV 01/18/17 16:00 01/18/17 21:00 Labetalol HCl (Normodyne IV) 5 mg Q5M PRN IV 01/18/17 16:00 01/18/17 21:00 Morphine Sulfate (MoRPHine SULFATE INJ) 4 mg Q1H PRN IV 01/18/17 17:00 02/01/17 16:59 01/18/17 18:49 4 MG Ondansetron HCl (Zofran Inj) 4 mg ONE PRN IV 01/18/17 17:00 02/17/17 16:59
[2017-01-19 03:32] VITALS: BP 111/65; PULSE 81; TEMP 36.7; O2SAT 95
[2017-01-19] MEDS: OXYCODONE HCL IR 5 MG TAB (IMMEDIATE RELEASE) PO PRN ×3 (03:38→16:25)
[2017-01-19] MEDS: PIPERACILL/TAZOBAC IV 3.375 GM in DEXTROSE 5% 100ML 100 ML IV SCH ×3 (03:41→21:46)
[2017-01-19 07:06] VITALS: BP 113/65; PULSE 85; TEMP 36.5; O2SAT 94
[2017-01-19] MEDS ORDERED: VANCOMYCIN TROUGH ONE (07:30)
[2017-01-19] MEDS: MoRPHine SULFATE 2 MG/ML CARP IV PRN ×3 (07:55→21:47)
[2017-01-19] MEDS: VANCOMYCIN INJ 1,100 MG in SODIUM CHLORIDE 0.9% 250ML 250 ML IV SCH (08:01)
--- NOTE | 2017-01-19 08:22 | Pharmacy Progress Note ---
Pharmacy Abx Dose Short Note Date of Service Jan 19, 2017. Assessment & Plan Assessment 41 year old male receiving Vancomycin and Zosyn for treatment of cellulitis Day # 3 of antimicrobial therapy. * Currently receiving Vancomycin 1100mg (~15mg/kg) IV q12 * Blood cultures show no growth to date * Patient underwent I&D on 01/18/17; cultures from synovial fluid and deep draining pending. Gram stain from synovial show many G+ cocci in clusters ( suggestive of Staph. aureus) Plan Vancomycin * Trough level of 5.7 mcg/mL is subtherapeutic (appropriately drawn and reflective of steady state) * Change to 1250 mg (~18mg/kg) IV every 8 hours to target a higher trough level ; shorten dosing interval and increase dose by ~13% * Goal trough level for cellulitis : 10 to 15 mcg/mL * Trough or random level ordered for: 01/20 @ 1330 (prior to the 4th dose and therefore should be reflective of steady state) Pharmacy will continue to follow and will adjust dose/frequency as necessary. Thank you.
--- NOTE | 2017-01-19 09:14 | ORTHOPEDICS PROGRESS NOTE ---
DATE: 01/19/2017 DATE: 01/19/2017 SUBJECTIVE: Woody is seen today, he notes no new complaints. He states the pain radiating up the forearm is much improved. OBJECTIVE: Right hand exam does not show any evidence of ascending erythema, no fluctuance in the forearm. Dressing is clean, dry and intact. ASSESSMENT: Postop day 1 irrigation and debridement of right hand abscess with arthrotomy and drainage. PLAN: At this point in time, will continue antibiotics, vancomycin and Zosyn. We will monitor intraoperative cultures. Continue DVT prophylaxis. We will change the dressing tomorrow.
[2017-01-19] MEDS: VANCOMYCIN INJ 1,250 MG in SODIUM CHLORIDE 0.9% 250ML 250 ML IV SCH ×2 (13:38→21:47)
[2017-01-19] MEDS ORDERED: ALUMINUM/MAGNESIUM/SIMETH (MAALOX MAX) 30 ML UDC PO PRN (14:45)
[2017-01-19] MEDS ORDERED: PANTOprazole SOD 40 MG TAB PO ONE (15:00)
[2017-01-19 15:11] VITALS: BP 119/70; PULSE 79; TEMP 36.5; O2SAT 95
--- NOTE | 2017-01-19 21:15 | Progress Note ---
Medicine Progress Note Date & Time of Visit: Jan 19, 2017 at 11:10 . Subjective I&D performed yesterday by Ortho. Less pain right hand. Afebrile. No nausea, vomiting, diarrhea. . Objective Last 8 Hrs Date Time Temp Pulse Resp B/P (MAP) Pulse Ox O2 Delivery O2 Flow Rate FiO2 01/19/17 15:45 Room Air 01/19/17 15:11 36.5 79 14 119/70 (86) 95 Room Air Physical Exam: General- no distress Lungs- clear Heart- RRR Abdomen- + BS, soft, nontender Extremities- right hand bandaged; nodular lesion left leg inferior to knee; no pretibial edema or calf tenderness Lymphatics- bilat axillary adenopathy Neuro- alert . Laboratory Results: Last 24 Hours Test 01/19/17 07:23 Creatinine 1.00 mg/dl Est Creatinine Clear Calc Drug Dose 92.7 ml/min Estimated GFR () 109.4 Estimated GFR (Non- 94.4 Vancomycin Level Trough 5.7 mcg/ml Assessment & Plan ABSCESS RIGHT HAND Ortho consulted for I&D. Culture results pending. Continue IV vancomycin and piperacillin / tazobactam. Consult ID when culture info available. ADENOPATHY Bilateral axillary adenopathy ? secondary to systemic infection. HIV testing pending. May need further evaluation. VTE PROPHYLAXIS Low risk. Ambulate. DISPOSITION Expected discharge to home. Will need outpatient f/u for above concerns. . Current Inpatient Medications: Current Inpatient Medications Medications (Trade) Dose Ordered Sig/Kamilah Route Start Time Stop Time Status Last Admin Dose Admin Vancomycin HCl (Consult) 1 ea UD N/A 01/17/17 18:00 02/16/17 17:59 Piperacillin Sod/ Tazobactam Sod 3.375 gm/Dextrose 115 ml @ 28.75 mls/ hr Q8@0400,1200,2000 IV 01/18/17 04:00 01/28/17 03:59 01/19/17 11:40 28.75 MLS/HR Acetaminophen (Tylenol Tab) 325 mg Q4H PRN PO 01/17/17 18:15 02/16/17 18:14 Piperacillin Sod/ Tazobactam Sod (Consult) 1 ea UD PRN N/A 01/17/17 18:30 02/16/17 18:29 Metoclopramide HCl (Reglan Inj) 10 mg Q6H PRN IV 01/17/17 18:30 02/16/17 18:29 Tramadol HCl (Ultram Tab) 50 mg Q6H PRN PO 01/17/17 20:30 02/16/17 20:29 01/18/17 03:59 50 MG Ioversol (Optiray 320) 100 ml UD PRN IV 01/17/17 20:45 01/21/17 20:44 Oxycodone HCl (Roxicodone Immediate Rel Tab) 10 mg Q6H PRN PO 01/18/17 14:45 01/31/17 20:44 01/19/17 16:25 10 MG Morphine Sulfate (MoRPHine SULFATE INJ) 4 mg Q1H PRN IV 01/18/17 17:00 02/01/17 16:59 01/19/17 14:31 4 MG Ondansetron HCl (Zofran Inj) 4 mg ONE PRN IV 01/18/17 17:00 02/17/17 16:59 Vancomycin HCl 1250 mg/Sodium Chloride 275 ml @ 125 mls/hr Q8H IV 01/19/17 14:00 01/27/17 13:59 01/19/17 13:38 125 MLS/HR Pantoprazole Sodium (Protonix Tab) 40 mg BID PO 01/19/17 21:00 02/18/17 20:59 Al Hydrox/Mg Hydrox/Simethicone (Maalox Max Susp) 15 ml Q6H PRN PO 01/19/17 14:45 02/18/17 14:44
[2017-01-19] MEDS: PANTOprazole SOD 40 MG TAB PO SCH (21:47)
[2017-01-19 23:08] VITALS: BP 101/58; PULSE 93; TEMP 36.8; O2SAT 96
[2017-01-20] MEDS: OXYCODONE HCL IR 5 MG TAB (IMMEDIATE RELEASE) PO PRN ×4 (01:01→20:47)
[2017-01-20] MEDS: MoRPHine SULFATE 2 MG/ML CARP IV PRN ×4 (03:42→23:42)
[2017-01-20] MEDS: PIPERACILL/TAZOBAC IV 3.375 GM in DEXTROSE 5% 100ML 100 ML IV SCH ×3 (03:53→20:45)
[2017-01-20] MEDS: VANCOMYCIN INJ 1,250 MG in SODIUM CHLORIDE 0.9% 250ML 250 ML IV SCH (05:52)
[2017-01-20 06:18] LABS: MEAN CELL VOLUME 93.8 fL (80-100); MEAN CORPUSCULAR HEMOGLOBIN 30.8 pg (25-34); MEAN CORPUSCULAR HGB CONC 32.9 g/dl (32-36); MEAN PLATELET VOLUME 9.5 fL (7.4-10.4); PLATELET COUNT 297 K/uL (130-400); RED BLOOD COUNT 3.73 M/uL (4.7-6.1); WHITE BLOOD COUNT 25.16 K/uL (4.8-10.8)
[2017-01-20 06:42] LABS: BASO ABS # 0.01 K/uL (0-0.2); COMPLETE YES; EOS % 0.1 %; IG% 0.3 %; LYMPH ABS # 2.26 K/uL (1.2-3.4); MONO % 3.2 %; NEUT % 87.4 %
[2017-01-20 06:55] LABS: BUN/CREATININE RATIO 15.1 (10-20); CALCIUM 8.3 mg/dl (8.5-10.1); CREATININE 0.85 mg/dl (0.60-1.40); POTASSIUM 4.1 mmol/L (3.5-5.1)
[2017-01-20 07:46] VITALS: BP 97/60; PULSE 63; TEMP 36.8; O2SAT 98
[2017-01-20] MEDS: PANTOprazole SOD 40 MG TAB PO SCH ×2 (08:00→20:45)
--- NOTE | 2017-01-20 09:41 | PROGRESS NOTE ---
DATE: 01/20/2017 SUBJECTIVE: Woody is seen at the bedside today, he is in appropriate amount of pain. Denies other systemic problems. He states the pain in the forearm is improved. OBJECTIVE: Right hand exam shows scant serous drainage from his incision. He has resolution of erythema. I did not detect any gross pus. He can flex and extend the digits. ASSESSMENT: Postop day 2 I&D abscess right hand. PLAN: We will continue vancomycin and piperacillin/tazobactam. We will allow him to ambulate. He should continue dry sterile dressing changes. Upon discharge, he should follow up with me in approximately 10-14 days from surgery.
[2017-01-20] MEDS ORDERED: VANCOMYCIN TROUGH ONE (13:30)
--- NOTE | 2017-01-20 15:10 | Medical Consult ---
Consultation Date of Consultation: Jan 20, 2017. Attending Physician: Rey Mendoza M.D. Reason for Consultation: Abscess History of Present Illness 41-year-old male without significant past medical history, apparently injured himself 2 weeks ago while gardening with puncture wounds from a thorn. He subsequently developed increased redness, swelling, and pain associated with fever, and was ultimately admitted to the hospital for further management. He is found to have abscess of his right hand, is now undergone incision and drainage with finding of abscess and probable septic arthritis. Cultures now growing a methicillin sensitive Staph aureus. Patient initially treated with IV vancomycin and Zosyn, vancomycin has been discontinued. Patient currently afebrile and hemodynamically stable. Patient has been noted to have bilateral axillary adenopathy, slightly tender, with no obvious inciting factors. Past Medical/Surgical History Medical Problems: (1) Axillary lymphadenopathy Status: Acute (2) Fever Status: Acute (3) Infection of right hand Status: Acute Medical Problems: (1) Cellulitis (2) Cellulitis of hand, right (3) No significant past medical history Surgical Problems: (1) Hx of tonsillectomy Family History Cancer Diabetes mellitus Heart disease Hypertension Lung disease Social History Smoking Status: Current Every Day Smoker Smokeless Tobacco Use: No Alcohol Use: none Drug Use: none Marital Status: Housing Status: lives with family Occupation Status: employed Allergies Coded Allergies: Erythromycin (Verified Adverse Reaction, Severe, GI UPSET & DIZZY, 01/18/17 ) Current Inpatient Medications Current Inpatient Medications Medications (Trade) Dose Ordered Sig/Kamilah Route Start Time Stop Time Status Last Admin Dose Admin Piperacillin Sod/ Tazobactam Sod 3.375 gm/Dextrose 115 ml @ 28.75 mls/ hr Q8@0400,1200,2000 IV 01/18/17 04:00 01/28/17 03:59 01/20/17 12:13 28.75 MLS/HR Acetaminophen (Tylenol Tab) 325 mg Q4H PRN PO 01/17/17 18:15 02/16/17 18:14 Piperacillin Sod/ Tazobactam Sod (Consult) 1 ea UD PRN N/A 01/17/17 18:30 02/16/17 18:29 Metoclopramide HCl (Reglan Inj) 10 mg Q6H PRN IV 01/17/17 18:30 02/16/17 18:29 Tramadol HCl (Ultram Tab) 50 mg Q6H PRN PO 01/17/17 20:30 02/16/17 20:29 01/18/17 03:59 50 MG Ioversol (Optiray 320) 100 ml UD PRN IV 01/17/17 20:45 01/21/17 20:44 Oxycodone HCl (Roxicodone Immediate Rel Tab) 10 mg Q6H PRN PO 01/18/17 14:45 01/31/17 20:44 01/20/17 14:10 10 MG Morphine Sulfate (MoRPHine SULFATE INJ) 4 mg Q1H PRN IV 01/18/17 17:00 02/01/17 16:59 01/20/17 10:52 4 MG Ondansetron HCl (Zofran Inj) 4 mg ONE PRN IV 01/18/17 17:00 02/17/17 16:59 Pantoprazole Sodium (Protonix Tab) 40 mg BID PO 01/19/17 21:00 02/18/17 20:59 01/20/17 08:00 40 MG Al Hydrox/Mg Hydrox/Simethicone (Maalox Max Susp) 15 ml Q6H PRN PO 01/19/17 14:45 02/18/17 14:44 Review of Systems Systems were reviewed and are negative except as per HPI Physical Exam Date Time Temp Pulse Resp B/P (MAP) Pulse Ox O2 Delivery O2 Flow Rate FiO2 01/20/17 07:55 Room Air 01/20/17 07:46 36.8 63 16 97/60 (72) 98 Room Air 01/20/17 00:45 Room Air 01/19/17 23:08 36.8 93 16 101/58 (72) 96 Room Air 01/19/17 15:45 Room Air 01/19/17 15:11 36.5 79 14 119/70 (86) 95 Room Air General Appearance: WD/WN, no apparent distress Head: normocephalic, atraumatic Eyes: normal inspection, EOMI, sclerae normal ENT: normal ENT inspection, hearing grossly normal, pharynx normal Neck: supple, no adenopathy, thyroid normal, trachea midline Respiratory/Chest: chest non-tender, lungs clear, normal breath sounds, no respiratory distress Cardiovascular: regular rate, rhythm, no gallop, no murmur Abdomen/GI: normal bowel sounds, non tender, soft, no organomegaly Back: normal inspection, no CVA tenderness Extremities/Musculoskelatal: no calf tenderness, normal capillary refill Neurologic/Psych: alert Skin: normal color, no rash, + pertinent finding ( Surgical dressing intact right hand) Lymphatic: + axillary node abnormality ( bilateral) Laboratory Results Last 24 Hours Test 01/20/17 05:41 White Blood Count 25.16 K/uL Red Blood Count 3.73 M/uL Hemoglobin 11.5 g/dL Hematocrit 35.0 % Mean Corpuscular Volume 93.8 fL Mean Corpuscular Hemoglobin 30.8 pg Mean Corpuscular Hemoglobin Concent 32.9 g/dl Platelet Count 297 K/uL Mean Platelet Volume 9.5 fL Neutrophils (%) (Auto) 87.4 % Lymphocytes (%) (Auto) 9.0 % Monocytes (%) (Auto) 3.2 % Eosinophils (%) (Auto) 0.1 % Basophils (%) (Auto) 0.0 % Neutrophils # (Auto) 21.98 K/uL Lymphocytes # (Auto) 2.26 K/uL Monocytes # (Auto) 0.81 K/uL Eosinophils # (Auto) 0.02 K/uL Basophils # (Auto) 0.01 K/uL RDW Standard Deviation 46.4 fL RDW Coefficient of Variation 13.5 % Immature Granulocyte % (Auto) 0.3 % Immature Granulocyte # (Auto) 0.08 K/uL Sodium Level 142 mmol/L Potassium Level 4.1 mmol/L Chloride Level 109 mmol/L Carbon Dioxide Level 28 mmol/L Anion Gap 5.0 mmol/L Blood Urea Nitrogen 13 mg/dl Creatinine 0.85 mg/dl Est Creatinine Clear Calc Drug Dose 109.1 ml/min Estimated GFR () 127.2 Estimated GFR (Non- 109.8 BUN/Creatinine Ratio 15.1 Random Glucose 110 mg/dl Calcium Level 8.3 mg/dl HIV (1&2) Ab and P24 Ag, 4th Gener NEG Assessment & Plan Right hand abscess with septic arthritis with methicillin sensitive Staph aureus now status post surgical debridement, as well as bilateral lymphadenitis. Not clear whether lymphadenitis related to recent staph infection or whether we are dealing with another process. Patient to be continued on cefazolin for now, hopefully can transition to oral antibiotic in near future. I have ordered additional serologies. Will follow.
[2017-01-20 15:31] VITALS: BP 103/52; PULSE 78; TEMP 37; O2SAT 98
--- NOTE | 2017-01-20 20:29 | Progress Note ---
Medicine Progress Note Date & Time of Visit: Jan 20, 2017 at 10:00 . Subjective Persistent hand and arm pain. Intermittent sweats, but no fever. No nausea, vomiting, diarrhea. . Objective Last 8 Hrs Date Time Temp Pulse Resp B/P (MAP) Pulse Ox O2 Delivery O2 Flow Rate FiO2 01/20/17 15:45 Room Air 01/20/17 15:31 37.0 78 20 103/52 (69) 98 Room Air Physical Exam: General- no distress Lungs- clear Heart- RRR Abdomen- + BS, soft, nontender Extremities- right hand bandaged; nodular lesion left leg inferior to knee without drainage; no pretibial edema or calf tenderness Neuro- alert . Laboratory Results: Last 24 Hours Test 01/20/17 05:41 01/20/17 20:07 White Blood Count 25.16 K/uL Red Blood Count 3.73 M/uL Hemoglobin 11.5 g/dL Hematocrit 35.0 % Mean Corpuscular Volume 93.8 fL Mean Corpuscular Hemoglobin 30.8 pg Mean Corpuscular Hemoglobin Concent 32.9 g/dl Platelet Count 297 K/uL Mean Platelet Volume 9.5 fL Neutrophils (%) (Auto) 87.4 % Lymphocytes (%) (Auto) 9.0 % Monocytes (%) (Auto) 3.2 % Eosinophils (%) (Auto) 0.1 % Basophils (%) (Auto) 0.0 % Neutrophils # (Auto) 21.98 K/uL Lymphocytes # (Auto) 2.26 K/uL Monocytes # (Auto) 0.81 K/uL Eosinophils # (Auto) 0.02 K/uL Basophils # (Auto) 0.01 K/uL RDW Standard Deviation 46.4 fL RDW Coefficient of Variation 13.5 % Immature Granulocyte % (Auto) 0.3 % Immature Granulocyte # (Auto) 0.08 K/uL Sodium Level 142 mmol/L Potassium Level 4.1 mmol/L Chloride Level 109 mmol/L Carbon Dioxide Level 28 mmol/L Anion Gap 5.0 mmol/L Blood Urea Nitrogen 13 mg/dl Creatinine 0.85 mg/dl Est Creatinine Clear Calc Drug Dose 109.1 ml/min Estimated GFR () 127.2 Estimated GFR (Non- 109.8 BUN/Creatinine Ratio 15.1 Random Glucose 110 mg/dl Calcium Level 8.3 mg/dl HIV (1&2) Ab and P24 Ag, 4th Gener NEG Assessment & Plan ABSCESS RIGHT HAND Ortho consulted for I&D. Initially received empiric intravenous antibiotic therapy with IV vancomycin and piperacillin/tazobactam. Wound culture growing Staph aureus (MSSA). Discontinue vancomycin. Continue piperacillin / tazobactam. Consult ID. ADENOPATHY Bilateral axillary adenopathy ? secondary to systemic infection. HIV negative. May need further evaluation if adenopathy persists. VTE PROPHYLAXIS Low risk. Ambulate. DISPOSITION Expected discharge to home. Will need outpatient f/u for above concerns. . Current Inpatient Medications: Current Inpatient Medications Medications (Trade) Dose Ordered Sig/Kamilah Route Start Time Stop Time Status Last Admin Dose Admin Piperacillin Sod/ Tazobactam Sod 3.375 gm/Dextrose 115 ml @ 28.75 mls/ hr Q8@0400,1200,2000 IV 01/18/17 04:00 01/28/17 03:59 01/20/17 12:13 28.75 MLS/HR Acetaminophen (Tylenol Tab) 325 mg Q4H PRN PO 01/17/17 18:15 02/16/17 18:14 Piperacillin Sod/ Tazobactam Sod (Consult) 1 ea UD PRN N/A 01/17/17 18:30 02/16/17 18:29 Metoclopramide HCl (Reglan Inj) 10 mg Q6H PRN IV 01/17/17 18:30 02/16/17 18:29 Tramadol HCl (Ultram Tab) 50 mg Q6H PRN PO 01/17/17 20:30 02/16/17 20:29 01/18/17 03:59 50 MG Ioversol (Optiray 320) 100 ml UD PRN IV 01/17/17 20:45 01/21/17 20:44 Oxycodone HCl (Roxicodone Immediate Rel Tab) 10 mg Q6H PRN PO 01/18/17 14:45 01/31/17 20:44 01/20/17 14:10 10 MG Morphine Sulfate (MoRPHine SULFATE INJ) 4 mg Q1H PRN IV 01/18/17 17:00 02/01/17 16:59 01/20/17 16:33 4 MG Ondansetron HCl (Zofran Inj) 4 mg ONE PRN IV 01/18/17 17:00 02/17/17 16:59 Pantoprazole Sodium (Protonix Tab) 40 mg BID PO 01/19/17 21:00 02/18/17 20:59 01/20/17 08:00 40 MG Al Hydrox/Mg Hydrox/Simethicone (Maalox Max Susp) 15 ml Q6H PRN PO 01/19/17 14:45 02/18/17 14:44
[2017-01-20 23:00] VITALS: BP 109/66; PULSE 77; TEMP 36.8; O2SAT 97
[2017-01-21] MEDS: PIPERACILL/TAZOBAC IV 3.375 GM in DEXTROSE 5% 100ML 100 ML IV SCH ×2 (04:33→11:52)
[2017-01-21] MEDS: OXYCODONE HCL IR 5 MG TAB (IMMEDIATE RELEASE) PO PRN ×4 (04:38→20:49)
[2017-01-21 07:08] VITALS: BP 109/65; PULSE 76; TEMP 36.7; O2SAT 97
[2017-01-21] MEDS: PANTOprazole SOD 40 MG TAB PO SCH ×2 (07:52→20:50)
[2017-01-21] MEDS: MoRPHine SULFATE 2 MG/ML CARP IV PRN (07:53)
[2017-01-21 07:58] LABS: BASO % 0.1 %; BASO ABS # 0.01 K/uL (0-0.2); COMPLETE YES; EOS % 1.2 %; HEMATOCRIT 39.2 % (42-52); IG% 0.4 %; LYMPH % 29.8 %; LYMPH ABS # 2.74 K/uL (1.2-3.4); MEAN CELL VOLUME 94.9 fL (80-100); MEAN CORPUSCULAR HEMOGLOBIN 29.8 pg (25-34); MEAN CORPUSCULAR HGB CONC 31.4 g/dl (32-36); MEAN PLATELET VOLUME 9.4 fL (7.4-10.4); MONO % 6.3 %; NEUT % 62.2 %; PLATELET COUNT 295 K/uL (130-400); RED BLOOD COUNT 4.13 M/uL (4.7-6.1); WHITE BLOOD COUNT 9.21 K/uL (4.8-10.8)
--- NOTE | 2017-01-21 10:52 | Anesthesiology Progress Note ---
Anesthesia Post Op Note Date & Time Jan 21, 2017 at 10:52 Vital Signs Pain Intensity: 6.0 Vital Signs Past 12 Hours Date Time Temp Pulse Resp B/P (MAP) Pulse Ox O2 Delivery O2 Flow Rate FiO2 01/21/17 07:55 Room Air 01/21/17 07:08 36.7 76 16 109/65 (80) 97 Room Air 01/20/17 23:50 Room Air 01/20/17 23:00 36.8 77 16 109/66 (80) 97 Room Air Notes Mental Status: alert / awake / arousable, participated in evaluation Pt Amnestic to Procedure: Yes Nausea / Vomiting: adequately controlled Pain: adequately controlled Airway Patency, RR, SpO2: stable & adequate BP & HR: stable & adequate Hydration State: stable & adequate Anesthetic Complications: no major complications apparent
--- NOTE | 2017-01-21 14:05 | Orthopedic Progress Note ---
Orthopedic Progress Note Date of Service Jan 21, 2017. Subjective Post OP Day: 3 Reports: complaints (COMPLAINING OF SIGNIFICANT PAIN IN THE HAND AND UP THE FOREARM), Denies: chest pain, SOB, nausea / vomiting, light headedness Objective calves soft nontender, N/V intact, capillary refill less than 2 sec., dressing C /D/I, A&O x3 DRESSING CHANGED TODAY. INCISION SITE LOOKS GOOD, MINIMAL DRAINAGE, MINIMAL ERYTHEMA. MODERATELY TENDER UP THE ANTERIOR FOREARM, MILD SWELLING, NO ERYTHEMA NOTED THERE. Date Time Temp Pulse Resp B/P (MAP) Pulse Ox O2 Delivery O2 Flow Rate FiO2 01/21/17 07:55 Room Air 01/21/17 07:08 36.7 76 16 109/65 (80) 97 Room Air 01/20/17 23:50 Room Air 01/20/17 23:00 36.8 77 16 109/66 (80) 97 Room Air 01/20/17 15:45 Room Air 01/20/17 15:31 37.0 78 20 103/52 (69) 98 Room Air Laboratory Results 24 Hours: Test 01/21/17 06:54 White Blood Count 9.21 K/uL Red Blood Count 4.13 M/uL Hemoglobin 12.3 g/dL Hematocrit 39.2 % Mean Corpuscular Volume 94.9 fL Mean Corpuscular Hemoglobin 29.8 pg Mean Corpuscular Hemoglobin Concent 31.4 g/dl Platelet Count 295 K/uL Mean Platelet Volume 9.4 fL Neutrophils (%) (Auto) 62.2 % Lymphocytes (%) (Auto) 29.8 % Monocytes (%) (Auto) 6.3 % Eosinophils (%) (Auto) 1.2 % Basophils (%) (Auto) 0.1 % Neutrophils # (Auto) 5.73 K/uL Lymphocytes # (Auto) 2.74 K/uL Monocytes # (Auto) 0.58 K/uL Eosinophils # (Auto) 0.11 K/uL Basophils # (Auto) 0.01 K/uL Assessment & Plan Assessment: I&D Right 5th MP Joint with possible Tenosynovitis Cellulitis Right hand Plan: CONTINUE IV ABX PER ID TEAM MEDICAL MANAGEMENT PER DR. TRAN CONTINUE DAILY DRESSING CHANGES. WE WILL SEE TOMORROW TO DOUBLE CHECK THE FOREARM AND LIKELY SIGN OFF. IF HE NOTICES ANY INCREASED REDNESS OR SWELLING WE SHOULD BE MADE AWARE. PATIENT ADMITS THAT IT DOES SEEM TO BE IMPROVING. INCREASE OXYCODONE 10MG TO Q 4 HRS FOR IMPROVED PAIN CONTROL.
[2017-01-21 15:11] VITALS: BP 114/65; PULSE 64; TEMP 36.8; O2SAT 97
[2017-01-21] MEDS: CEFAZOLIN IV 2,000 MG in DEXTROSE 5% 50ML 50 ML IV SCH (16:19)
--- NOTE | 2017-01-21 17:53 | Infectious Disease Progress Nt ---
Progress Note Date of Service Jan 21, 2017. Subjective Pt evaluation today including: conversation w/ patient, physical exam, chart review, lab review, review of studies, conversation w/ senior financial consultant, review of inpatient medication list Still with significant pain in his right hand, otherwise only major complaint is persistent sweats. Remains afebrile. Appears to be tolerating antibiotic without apparent difficulty. All Other Systems: Reviewed and Negative Medications Current Inpatient Medications Medications (Trade) Dose Ordered Sig/Kamilah Route Start Time Stop Time Status Last Admin Dose Admin Acetaminophen (Tylenol Tab) 325 mg Q4H PRN PO 01/17/17 18:15 02/16/17 18:14 Metoclopramide HCl (Reglan Inj) 10 mg Q6H PRN IV 01/17/17 18:30 02/16/17 18:29 Tramadol HCl (Ultram Tab) 50 mg Q6H PRN PO 01/17/17 20:30 02/16/17 20:29 01/18/17 03:59 50 MG Ioversol (Optiray 320) 100 ml UD PRN IV 01/17/17 20:45 01/21/17 20:44 Morphine Sulfate (MoRPHine SULFATE INJ) 4 mg Q1H PRN IV 01/18/17 17:00 02/01/17 16:59 01/21/17 07:53 4 MG Ondansetron HCl (Zofran Inj) 4 mg ONE PRN IV 01/18/17 17:00 02/17/17 16:59 Pantoprazole Sodium (Protonix Tab) 40 mg BID PO 01/19/17 21:00 02/18/17 20:59 01/21/17 07:52 40 MG Al Hydrox/Mg Hydrox/Simethicone (Maalox Max Susp) 15 ml Q6H PRN PO 01/19/17 14:45 02/18/17 14:44 Oxycodone HCl (Roxicodone Immediate Rel Tab) 10 mg Q4H PRN PO 01/21/17 16:45 01/31/17 20:44 01/21/17 16:19 10 MG Cefazolin Sodium 2000 mg/Dextrose 60 ml @ 100 mls/hr Q8H IV 01/21/17 16:00 01/31/17 15:59 01/21/17 16:19 100 MLS/HR Objective Vital Signs Date Time Temp Pulse Resp B/P (MAP) Pulse Ox O2 Delivery O2 Flow Rate FiO2 01/21/17 16:00 Room Air 01/21/17 15:11 36.8 64 20 114/65 (81) 97 Room Air 01/21/17 07:55 Room Air 01/21/17 07:08 36.7 76 16 109/65 (80) 97 Room Air 01/20/17 23:50 Room Air 01/20/17 23:00 36.8 77 16 109/66 (80) 97 Room Air Physical Exam General Appearance: WD/WN, no apparent distress Eyes: normal inspection, EOMI, sclerae normal ENT: normal ENT inspection, pharynx normal Neck: supple, no adenopathy, trachea midline Respiratory/Chest: lungs clear, normal breath sounds, no respiratory distress Cardiovascular: regular rate, rhythm, no gallop, no murmur Abdomen: normal bowel sounds, non tender, soft, no organomegaly Extremities: no calf tenderness, normal capillary refill Neurologic/Psychiatric: alert, oriented x 3 Skin: normal color, no rash Lymphatic: + axilla node tender (R), + axilla node tender (L) Laboratory Results Last 24 Hours Test 01/21/17 06:54 White Blood Count 9.21 K/uL Red Blood Count 4.13 M/uL Hemoglobin 12.3 g/dL Hematocrit 39.2 % Mean Corpuscular Volume 94.9 fL Mean Corpuscular Hemoglobin 29.8 pg Mean Corpuscular Hemoglobin Concent 31.4 g/dl Platelet Count 295 K/uL Mean Platelet Volume 9.4 fL Neutrophils (%) (Auto) 62.2 % Lymphocytes (%) (Auto) 29.8 % Monocytes (%) (Auto) 6.3 % Eosinophils (%) (Auto) 1.2 % Basophils (%) (Auto) 0.1 % Neutrophils # (Auto) 5.73 K/uL Lymphocytes # (Auto) 2.74 K/uL Monocytes # (Auto) 0.58 K/uL Eosinophils # (Auto) 0.11 K/uL Basophils # (Auto) 0.01 K/uL RDW Standard Deviation 48.3 fL RDW Coefficient of Variation 13.9 % Immature Granulocyte % (Auto) 0.4 % Immature Granulocyte # (Auto) 0.04 K/uL Bartonella henselae IgG Ab Titer Bartonella henselae IgM Ab Titer Bartonella lucas IgG Ab Titer Bartonella lucas IgM Ab Titer Assessment and Plan Right hand abscess with septic arthritis with methicillin sensitive Staph aureus now status post surgical debridement, as well as bilateral lymphadenitis. Not clear whether lymphadenitis related to recent staph infection or whether we are dealing with another process. Patient changed to cefazolin, additional serologies ordered. Will follow.
--- NOTE | 2017-01-21 21:22 | Progress Note ---
Medicine Progress Note Date & Time of Visit: Jan 21, 2017 at 14:10 . Subjective Intermittent sweats. Persistent hand pain. No nausea, vomiting, diarrhea. . Objective Last 8 Hrs Date Time Temp Pulse Resp B/P (MAP) Pulse Ox O2 Delivery O2 Flow Rate FiO2 01/21/17 16:00 Room Air 01/21/17 15:11 36.8 64 20 114/65 (81) 97 Room Air Physical Exam: General- no distress Lungs- clear Heart- RRR Abdomen- + BS, soft, nontender Extremities- right hand I&D site without erythema or drainage; nodular lesion left leg inferior to knee without drainage; no pretibial edema or calf tenderness Neuro- alert . Laboratory Results: Last 24 Hours Test 01/21/17 06:54 White Blood Count 9.21 K/uL Red Blood Count 4.13 M/uL Hemoglobin 12.3 g/dL Hematocrit 39.2 % Mean Corpuscular Volume 94.9 fL Mean Corpuscular Hemoglobin 29.8 pg Mean Corpuscular Hemoglobin Concent 31.4 g/dl Platelet Count 295 K/uL Mean Platelet Volume 9.4 fL Neutrophils (%) (Auto) 62.2 % Lymphocytes (%) (Auto) 29.8 % Monocytes (%) (Auto) 6.3 % Eosinophils (%) (Auto) 1.2 % Basophils (%) (Auto) 0.1 % Neutrophils # (Auto) 5.73 K/uL Lymphocytes # (Auto) 2.74 K/uL Monocytes # (Auto) 0.58 K/uL Eosinophils # (Auto) 0.11 K/uL Basophils # (Auto) 0.01 K/uL RDW Standard Deviation 48.3 fL RDW Coefficient of Variation 13.9 % Immature Granulocyte % (Auto) 0.4 % Immature Granulocyte # (Auto) 0.04 K/uL Bartonella henselae IgG Ab Titer Bartonella henselae IgM Ab Titer Bartonella lucas IgG Ab Titer Bartonella lucas IgM Ab Titer Assessment & Plan ABSCESS RIGHT HAND Ortho consulted for I&D. Initially received empiric intravenous antibiotic therapy with IV vancomycin and piperacillin/tazobactam. Wound culture growing Staph aureus (MSSA). Discontinue vancomycin. Continue piperacillin / tazobactam. ADENOPATHY Bilateral axillary adenopathy ? secondary to systemic infection. HIV negative. May need further evaluation if adenopathy persists. VTE PROPHYLAXIS Low risk. Ambulate. DISPOSITION Expected discharge to home. Will need outpatient f/u for above concerns. . Current Inpatient Medications: Current Inpatient Medications Medications (Trade) Dose Ordered Sig/Kamilah Route Start Time Stop Time Status Last Admin Dose Admin Acetaminophen (Tylenol Tab) 325 mg Q4H PRN PO 01/17/17 18:15 02/16/17 18:14 Metoclopramide HCl (Reglan Inj) 10 mg Q6H PRN IV 01/17/17 18:30 02/16/17 18:29 Tramadol HCl (Ultram Tab) 50 mg Q6H PRN PO 01/17/17 20:30 02/16/17 20:29 01/18/17 03:59 50 MG Morphine Sulfate (MoRPHine SULFATE INJ) 4 mg Q1H PRN IV 01/18/17 17:00 02/01/17 16:59 01/21/17 07:53 4 MG Ondansetron HCl (Zofran Inj) 4 mg ONE PRN IV 01/18/17 17:00 02/17/17 16:59 Pantoprazole Sodium (Protonix Tab) 40 mg BID PO 01/19/17 21:00 02/18/17 20:59 01/21/17 20:50 40 MG Al Hydrox/Mg Hydrox/Simethicone (Maalox Max Susp) 15 ml Q6H PRN PO 01/19/17 14:45 02/18/17 14:44 Oxycodone HCl (Roxicodone Immediate Rel Tab) 10 mg Q4H PRN PO 01/21/17 16:45 01/31/17 20:44 01/21/17 20:49 10 MG Cefazolin Sodium 2000 mg/Dextrose 60 ml @ 100 mls/hr Q8H IV 01/21/17 16:00 01/31/17 15:59 01/21/17 16:19 100 MLS/HR
[2017-01-21 22:55] VITALS: BP 124/76; PULSE 74; TEMP 36.9; O2SAT 96
[2017-01-22] MEDS: CEFAZOLIN IV 2,000 MG in DEXTROSE 5% 50ML 50 ML IV SCH ×3 (00:12→15:23)
[2017-01-22] MEDS: OXYCODONE HCL IR 5 MG TAB (IMMEDIATE RELEASE) PO PRN ×4 (01:26→21:00)
[2017-01-22] MEDS: PANTOprazole SOD 40 MG TAB PO SCH ×2 (07:27→21:00)
[2017-01-22 07:40] VITALS: BP 128/78; PULSE 72; TEMP 36.8; O2SAT 97
[2017-01-22 07:49] LABS: CREATININE 0.98 mg/dl (0.60-1.40)
[2017-01-22 08:22] VITALS: O2SAT 95
--- NOTE | 2017-01-22 10:30 | Orthopedic Progress Note ---
Orthopedic Progress Note Date of Service Jan 22, 2017. Subjective Post OP Day: 4 Reports: pain controlled w PO medications, Denies: complaints, chest pain, SOB, nausea / vomiting, light headedness, calf pain Additional Notes: patient resting upon entering room Objective calves soft nontender, N/V intact, capillary refill less than 2 sec., A&O x3, toes mobile minimal drainage noted on dressing, NVDI. tender over dorsum hand over 5th MCP joint, lesser extent 4th MTP. no tenderness/no erythema noted in the forearm, erythema well localized to ulnar aspect of hand. Date Time Temp Pulse Resp B/P (MAP) Pulse Ox O2 Delivery O2 Flow Rate FiO2 01/22/17 08:22 95 Room Air 01/22/17 07:40 36.8 72 12 128/78 (95) 97 Room Air 01/22/17 07:30 Room Air 01/22/17 00:15 Room Air 01/21/17 22:55 36.9 74 18 124/76 (92) 96 Room Air 01/21/17 16:00 Room Air 01/21/17 15:11 36.8 64 20 114/65 (81) 97 Room Air Assessment & Plan Assessment: I&D Right 5th MP Joint with possible Tenosynovitis Cellulitis Right hand Plan: CONTINUE IV ABX PER ID TEAM MEDICAL MANAGEMENT PER DR. TRAN CONTINUE DAILY DRESSING CHANGES- dressing changed today by myself 01/22/17 continue to observe. no further redness noted, however c/o pain, states not worse than yesterday.
[2017-01-22] MEDS ORDERED: KETOROLAC TROMETHAMINE 30 MG/ML VIAL IV STA (14:34)
[2017-01-22] MEDS ORDERED: ONDANSETRON INJ 8 MG in DEXTROSE 5% 50ML 50 ML IV STA (14:35)
[2017-01-22] MEDS ORDERED: OPTIRAY 320 IV PRN (14:45)
--- NOTE | 2017-01-22 15:32 | DIAGNOSTIC IMAGING REPORT ---
CT HEAD COMBO CT DOSE: 1228.53 mGy.cm TECHNIQUE: Noncontrast images were obtained through the brain in the axial plane. The sequence was repeated following administration of 110 Optiray 320. A dose lowering technique was utilized adhering to the principles of ALARA. HISTORY: severe headache, Staph aureus abscess hand, r/o [employer] abscess COMPARISON: None. FINDINGS: No intra or extra-axial mass lesions are visualized. There is no CT evidence of acute cortical infarction. There is no evidence of midline shift. There is no acute hemorrhage. No calvarial fractures are visualized. There are patchy white matter hypodensities likely on a small vessel basis. There is no evidence of pathologic ventricular dilatation. There is no evidence of acute sinusitis Postcontrast images reveal no pathologically enhancing masses. IMPRESSION: No acute intracranial findings Electronically signed by: Juanjose Stock M.D. 01/22/2017 3:31 PM Dictated Date/Time: 01/22/2017 3:30 PM
[2017-01-22 16:00] VITALS: BP 115/71; PULSE 67; TEMP 36.5; O2SAT 98
--- NOTE | 2017-01-22 19:54 | Progress Note ---
Medicine Progress Note Date & Time of Visit: Jan 22, 2017 at 14:30 . Subjective Complains of severe left retrobulbar headache. No visual changes. Associated with nausea and vomiting. . Objective Last 8 Hrs Date Time Temp Pulse Resp B/P (MAP) Pulse Ox O2 Delivery O2 Flow Rate FiO2 01/22/17 16:00 36.5 67 18 115/71 (86) 98 Room Air Physical Exam: General- appears to be very uncomfortable Eyes- PERRL, EOMI, no conjunctivitis Neck- supple Lungs- clear Heart- RRR Abdomen- + BS, soft, nontender Extremities- right hand bandaged; nodular lesion left leg inferior to knee without drainage; no pretibial edema or calf tenderness . Laboratory Results: Last 24 Hours Test 01/22/17 06:24 Creatinine 0.98 mg/dl Est Creatinine Clear Calc Drug Dose 94.6 ml/min Estimated GFR () 112.1 Estimated GFR (Non- 96.7 Assessment & Plan ABSCESS RIGHT HAND Ortho consulted for I&D. Initially received empiric intravenous antibiotic therapy with IV vancomycin and piperacillin/tazobactam. Wound culture growing Staph aureus (MSSA). Discontinued vancomycin. Continued piperacillin / tazobactam, then transitioned to cephalexin. ADENOPATHY Bilateral axillary adenopathy ? secondary to systemic infection. HIV negative. May need further evaluation if adenopathy persists. SEVERE HEADACHE Check CT to rule out abscess / bleed. VTE PROPHYLAXIS Low risk. Ambulate. DISPOSITION Expected discharge to home. Will need outpatient f/u for above concerns. . Current Inpatient Medications: Current Inpatient Medications Medications (Trade) Dose Ordered Sig/Kamilah Route Start Time Stop Time Status Last Admin Dose Admin Acetaminophen (Tylenol Tab) 325 mg Q4H PRN PO 01/17/17 18:15 02/16/17 18:14 Metoclopramide HCl (Reglan Inj) 10 mg Q6H PRN IV 01/17/17 18:30 02/16/17 18:29 Tramadol HCl (Ultram Tab) 50 mg Q6H PRN PO 01/17/17 20:30 02/16/17 20:29 01/18/17 03:59 50 MG Morphine Sulfate (MoRPHine SULFATE INJ) 4 mg Q1H PRN IV 01/18/17 17:00 02/01/17 16:59 01/21/17 07:53 4 MG Ondansetron HCl (Zofran Inj) 4 mg ONE PRN IV 01/18/17 17:00 02/17/17 16:59 01/22/17 07:27 4 MG Pantoprazole Sodium (Protonix Tab) 40 mg BID PO 01/19/17 21:00 02/18/17 20:59 01/22/17 07:27 40 MG Al Hydrox/Mg Hydrox/Simethicone (Maalox Max Susp) 15 ml Q6H PRN PO 01/19/17 14:45 02/18/17 14:44 Oxycodone HCl (Roxicodone Immediate Rel Tab) 10 mg Q4H PRN PO 01/21/17 16:45 01/31/17 20:44 01/22/17 16:22 10 MG Cefazolin Sodium 2000 mg/Dextrose 60 ml @ 100 mls/hr Q8H IV 01/21/17 16:00 01/31/17 15:59 01/22/17 15:23 100 MLS/HR Ioversol (Optiray 320) 125 ml UD PRN IV 01/22/17 14:45 01/26/17 14:44
[2017-01-23] MEDS: CEFAZOLIN IV 2,000 MG in DEXTROSE 5% 50ML 50 ML IV SCH ×2 (00:06→07:41)
[2017-01-23 00:09] VITALS: BP 97/61; PULSE 69; TEMP 36.7; O2SAT 93
[2017-01-23 07:38] VITALS: BP 112/70; PULSE 68; TEMP 36.8; O2SAT 97
[2017-01-23 07:40] VITALS: O2SAT 97
[2017-01-23] MEDS: OXYCODONE HCL IR 5 MG TAB (IMMEDIATE RELEASE) PO PRN ×2 (07:41→16:41)
[2017-01-23 07:50] VITALS: O2SAT 97
[2017-01-23] MEDS: PANTOprazole SOD 40 MG TAB PO SCH (08:51)
[2017-01-23 10:49] VITALS: BP 112/70; PULSE 68; TEMP 36.8; O2SAT 97
--- NOTE | 2017-01-23 14:49 | Progress Note ---
Medicine Progress Note Date & Time of Visit: Jan 23, 2017 at 14:42 . Subjective No fever. Right hand and forearm feel better. No nausea, vomiting, diarrhea. . Objective Last 8 Hrs Date Time Temp Pulse Resp B/P (MAP) Pulse Ox O2 Delivery O2 Flow Rate FiO2 01/23/17 10:49 36.8 68 16 97 Room Air 01/23/17 07:50 97 Room Air 01/23/17 07:40 97 Room Air 01/23/17 07:38 36.8 68 16 112/70 (84) 97 Room Air Physical Exam: General- no distress Lungs- clear Heart- RRR Abdomen- + BS, soft, nontender Extremities- right hand bandaged; less tenderness right forearm; nodular lesion left leg inferior to knee without drainage; no pretibial edema or calf tenderness . Assessment & Plan ABSCESS RIGHT HAND Ortho consulted for I&D. Initially received empiric intravenous antibiotic therapy with IV vancomycin and piperacillin/tazobactam. Wound culture grew Staph aureus (MSSA). Fungal cultures from wound negative. Blood cultures negative. Discontinued vancomycin. Transitioned from piperacillin / tazobactam to cefazolin. Discharge on cephalexin to complete 10 days of antibiotic therapy. Ortho follow-up with Dr. Vivas. ADENOPATHY Bilateral axillary adenopathy ? secondary to systemic infection. HIV negative. Adenopathy should be followed with further evaluation / consultation if adenopathy persists. SEVERE HEADACHE CT negative. Headache resolved. VTE PROPHYLAXIS Low risk. Ambulating. DISPOSITION Discharge to home. Primary Care follow-up with [facility]. Orthopedics follow-up with Dr. Vivas. . Consultants: Orthopedics with Dr. Vivas. ID with Dr. Bryant. . Procedures: IV antibiotics US upper extremity CT upper extremity CT head I&D abscess -[id number]- right hand by Dr. Vivas 01/18/17 [errror MARY 01/23/17 15: 13] . Current Inpatient Medications: Current Inpatient Medications Medications (Trade) Dose Ordered Sig/Kamilah Route Start Time Stop Time Status Last Admin Dose Admin Acetaminophen (Tylenol Tab) 325 mg Q4H PRN PO 01/17/17 18:15 02/16/17 18:14 Metoclopramide HCl (Reglan Inj) 10 mg Q6H PRN IV 01/17/17 18:30 02/16/17 18:29 Tramadol HCl (Ultram Tab) 50 mg Q6H PRN PO 01/17/17 20:30 02/16/17 20:29 01/18/17 03:59 50 MG Morphine Sulfate (MoRPHine SULFATE INJ) 4 mg Q1H PRN IV 01/18/17 17:00 02/01/17 16:59 01/21/17 07:53 4 MG Ondansetron HCl (Zofran Inj) 4 mg ONE PRN IV 01/18/17 17:00 02/17/17 16:59 01/22/17 07:27 4 MG Pantoprazole Sodium (Protonix Tab) 40 mg BID PO 01/19/17 21:00 02/18/17 20:59 01/23/17 08:51 40 MG Al Hydrox/Mg Hydrox/Simethicone (Maalox Max Susp) 15 ml Q6H PRN PO 01/19/17 14:45 02/18/17 14:44 Oxycodone HCl (Roxicodone Immediate Rel Tab) 10 mg Q4H PRN PO 01/21/17 16:45 01/31/17 20:44 01/23/17 07:41 10 MG Cefazolin Sodium 2000 mg/Dextrose 60 ml @ 100 mls/hr Q8H IV 01/21/17 16:00 01/31/17 15:59 01/23/17 07:41 100 MLS/HR Ioversol (Optiray 320) 125 ml UD PRN IV 01/22/17 14:45 01/26/17 14:44
[2017-01-23] MEDS ORDERED: KFL500 PO (14:51)
--- NOTE | 2017-01-23 15:07 | Discharge Instructions ---
Discharge Instructions Date of Service Jan 23, 2017. Admission Reason for Admission: fever, hand pain . Discharge Discharge Diagnosis / Problem: abscess right hand Discharge Goals Goal(s): Decrease discomfort, Improve disease control Activity Recommendations Activity Limitations: as noted below Exercise/Sports Limitations: gradually increase as tolerated No heavy use of right arm / hand at first. Increase activity gradually. Gently open and close fingers and bend wrist several times a day. . . Instructions / Follow-Up Instructions / Follow-Up FOLLOW-UP APPOINTMENTS: Orthopedics Dr. Vivas [facility] Please call office for appointment for recheck within 1 week. Medicine [facility] Please call office for appointment for recheck within 1 week. NEW MEDICATIONS: cephalexin (Keflex) 500 mg 4 times a day until gone OTHER INSTRUCTIONS: Dressing Changes wrap with sterile gauze change daily Check the swollen lymph nodes in your armpits at least once a week until swelling goes away. Have your providers at [facility] check as well. Swelling probably due to infection, but there may be other causes. If swelling doesn't get better, you may need further testing (biopsy or CT scan of chest and abdomen). Seek medical attention if you have: * temperature above 101 * diarrhea, dark stools or bloody stools * worsening redness, swelling, drainage of right hand * persistent enlargement of lymph nodes in your armpits or elsewhere * any unanswered questions or concerns Call 911 if symptoms are severe. Call if you have any questions or problems. My cell # is [phone]. You can also reach a [facility] hospitalist on duty at [facility] 24 hours a day by calling [phone]. Please take good care of yourself. Rey Mendoza . Current Hospital Diet Patient's current hospital diet: Regular Diet Discharge Diet Recommended Diet: Regular Diet Procedures Procedures Performed: Irrigation and debridement right hand abcess, arthrotomy and drainage of MCP joint abcess Pending Studies Studies pending at discharge: no Medical Emergencies . Who to Call and When: Medical Emergencies: If at any time you feel your situation is an emergency, please call 911 immediately. . Non-Emergent Contact Non-Emergency issues call your: Primary Care Provider, Surgeon (Orthopedics) . . "Provider Documentation" section prepared by Rey Mendoza. . VTE Core Measure Inpt VTE Proph given/why not?: Treatment not indicated
--- NOTE | 2017-01-23 15:11 | Discharge Summary ---
Discharge Summary Date of Service Jan 23, 2017. Discharge Summary Admission Date: Jan 17, 2017 at 18:14 Discharge Date: Jan 23, 2017 Discharge Disposition: Home Principal Diagnosis: abscess right hand (Staph aureus, not MRSA) axillary adenopathy . Procedures: IV antibiotics US upper extremity CT upper extremity CT head I&D abscess right hand by Dr. Vivas 01/18/17 . Consultations: Orthopedics with Dr. Vivas. ID with Dr. Bryant. . Pending Studies/Follow-Up: Please follow axillary adenopathy. Will need further evaluation if it persists. . Medication Reconciliation New Medications: Cephalexin Monohydrate (Cephalexin) 500 Mg Cap 500 MG PO QID, #16 CAP Continued Medications: Ibuprofen (Advil) 200 Mg Tab 600 MG PO Q6H PRN for Pain, TAB take with food Admission Information HPI (per Admitting provider): This is a 41 year old male with no known medical history who presents to the ED with right hand infection. Patient reports being punctured with a thorn 2 weeks ago, felt it may have been infected, but did not see a physician. 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 From that time developed increased swelling, erythema, warmth, throbbing pain, purulent drainage. It is painful for him to move the wrist and the fingers. No numbness. For past few days has tender swollen lymph nodes in bilateral axilla. He reports associated fever of 102 F at home. He vomited x 1 two days ago after eating breakfast at a diner. No diarrhea. Reports having tetanus vaccine within the past 1 year. No history of diabetes. . Physical Exam (per Admitting): General Appearance: WD/WN, + pertinent finding (appears uncomfortable due to pain. at bedside. ) Head: normocephalic, atraumatic Eyes: normal inspection, EOMI, sclerae normal ENT: normal ENT inspection, hearing grossly normal Neck: supple, trachea midline Respiratory/Chest: lungs clear, normal breath sounds, no respiratory distress, no accessory muscle use Cardiovascular: regular rate, rhythm, no murmur Abdomen/GI: non tender, soft Extremities/Musculoskelatal: no pedal edema, + pertinent finding (severely limited ROM of right wrist and fingers due to pain) Neurologic/Psych: alert, normal mood/affect, oriented x 3, + pertinent finding (sensation intact right fingers) Skin: + pertinent finding (erythema, swelling, tenderness, and warmth on dorsal aspect of right hand. there a small ulceration which is dried without active drainage. no fluctuation. tenderness extends to wrist and long-term up forearm however no streaking.) Lymphatic: + pertinent finding (lymphadenopathy bilateral axillae) Hospital Course ABSCESS RIGHT HAND Ortho consulted for I&D. Initially received empiric intravenous antibiotic therapy with IV vancomycin and piperacillin/tazobactam. Wound culture grew Staph aureus (MSSA). Fungal cultures from wound negative. Blood cultures negative. Discontinued vancomycin. Transitioned from piperacillin / tazobactam to cefazolin. Discharge on cephalexin to complete 10 days of antibiotic therapy. Ortho follow-up with Dr. Vivas. ADENOPATHY Bilateral axillary adenopathy ? secondary to systemic infection. HIV negative. Adenopathy should be followed with further evaluation / consultation if adenopathy persists. SEVERE HEADACHE CT negative. Headache resolved. VTE PROPHYLAXIS Low risk. Ambulating. DISPOSITION Discharge to home. Primary Care follow-up with [facility]. Orthopedics follow-up with Dr. Vivas. . Discharge Instructions Date of Service Jan 23, 2017. Admission Reason for Admission: fever, hand pain . Discharge Discharge Diagnosis / Problem: abscess right hand Discharge Goals Goal(s): Decrease discomfort, Improve disease control Activity Recommendations Activity Limitations: as noted below Exercise/Sports Limitations: gradually increase as tolerated No heavy use of right arm / hand at first. Increase activity gradually. Gently open and close fingers and bend wrist several times a day. . . Instructions / Follow-Up Instructions / Follow-Up FOLLOW-UP APPOINTMENTS: Orthopedics Dr. Vivas [facility] Please call office for appointment for recheck within 1 week. Medicine [facility] Please call office for appointment for recheck within 1 week. NEW MEDICATIONS: cephalexin (Keflex) 500 mg 4 times a day until gone OTHER INSTRUCTIONS: Dressing Changes wrap with sterile gauze change daily Check the swollen lymph nodes in your armpits at least once a week until swelling goes away. Have your providers at [facility] check as well. Swelling probably due to infection, but there may be other causes. If swelling doesn't get better, you may need further testing (biopsy or CT scan of chest and abdomen). Seek medical attention if you have: * temperature above 101 * diarrhea, dark stools or bloody stools * worsening redness, swelling, drainage of right hand * persistent enlargement of lymph nodes in your armpits or elsewhere * any unanswered questions or concerns Call 911 if symptoms are severe. Call if you have any questions or problems. My cell # is [phone]. You can also reach a [facility] hospitalist on duty at [facility] 24 hours a day by calling [phone]. Please take good care of yourself. Rey Mendoza . Current Hospital Diet Patient's current hospital diet: Regular Diet Discharge Diet Recommended Diet: Regular Diet Procedures Procedures Performed: Irrigation and debridement right hand abcess, arthrotomy and drainage of MCP joint abcess Pending Studies Studies pending at discharge: no Medical Emergencies . Who to Call and When: Medical Emergencies: If at any time you feel your situation is an emergency, please call 911 immediately. . Non-Emergent Contact Non-Emergency issues call your: Primary Care Provider, Surgeon (Orthopedics) . . "Provider Documentation" section prepared by Rey Mendoza. . VTE Core Measure Inpt VTE Proph given/why not?: Treatment not indicated . Additional Copies To Jorge Alberto Alicea M.D.; Fabien Vivas MD
[2017-01-23 15:15] VITALS: BP 121/78; PULSE 69; TEMP 36.6; O2SAT 100
[2017-01-26 19:37] LABS: CYTOMEGALOVIRUS IGG AB >10.00 U/ML
[2017-02-05] MEDS ORDERED: LCTX PO ×2 (14:13→16:19)
[2017-02-05] MEDS ORDERED: OXYC-57 PO (14:13)
[2017-02-05] MEDS ORDERED: SENN8.6T7 PO (14:13)
[2017-02-05] MEDS ORDERED: CEPH500C2 PO ×2 (14:13→16:19)
[2017-02-22] MEDS ORDERED: MDR4 PO (14:25)
[2017-02-22] MEDS ORDERED: [UNRECOGNIZED DRUG - CODE] EXT (14:25)
[2017-02-22] MEDS ORDERED: NPR250 PO (14:25)
[2017-02-22] MEDS ORDERED: LRS10 PO (14:25)
[2017-02-22] MEDS ORDERED: ACET-1047 PO (14:25)
== END 2017-01-23 16:48 | disposition home or self-care (01) | DRG 982 ==
LOC: C.EDB 15:38 → C.MSN 18:14 → EDBEDREQ 18:16 → ENRESERV 18:21
PROVIDERS: ADMIT Hospitalist; ATTEND Hospitalist
PROC: 0JDJ0ZZ Extraction of Right Hand Subcutaneous Tissue and Fascia, Open Approach (ICD-10-PCS; principal; 2017-01-18 07:30)
PROC: 0R9U0ZZ Drainage of Right Metacarpophalangeal Joint, Open Approach (ICD-10-PCS; principal; 2017-01-18 07:30)
DX: L02.511 Cutaneous abscess of right hand (principal); M00.041 Staphylococcal arthritis, right hand; R59.0 Localized enlarged lymph nodes; R51 Headache; W60.XXXA Contact with nonvenomous plant thorns and spines and sharp leaves, initial encounter; Y93.H2 Activity, gardening and landscaping; W10.9XXA Fall (on) (from) unspecified stairs and steps, initial encounter; F17.200 Nicotine dependence, unspecified, uncomplicated; Z88.1 Allergy status to other antibiotic agents; Z83.3 Family history of diabetes mellitus; Z82.49 Family history of ischemic heart disease and other diseases of the circulatory system; Z83.6 Family history of other diseases of the respiratory system

== ENCOUNTER 2017-02-01 09:33 | Inpatient (IN) | payer OTHER ==
[~2017-02-01] VITALS: Ht 170.2 cm; Wt 71.1 kg
[~2017-02-01 09:33] MED LIST: IBUP-1050 PO; KFL500 PO
[2017-02-01] MEDS ORDERED: KETOROLAC TROMETHAMINE 30 MG/ML VIAL IV STA (09:50)
[2017-02-01] MEDS ORDERED: ONDANSETRON INJ 2 MG/ML 2 ML VIAL IV STA (09:50)
[2017-02-01] MEDS ORDERED: SODIUM CHLORIDE 0.9% 1000ML 1,000 ML IV ONE (09:50)
[2017-02-01] MEDS ORDERED: NICOTINE 21 MG/24 HR TDSY TD STA (09:53)
[2017-02-01] MEDS ORDERED: NICOTINE POLACRILEX 2 MG GUM MT PRN (10:00)
[2017-02-01] MEDS ORDERED: ALBUT/IPRATROP 3MG/0.5MG NEB 3 ML VIAL INH ONE (10:00)
--- NOTE | 2017-02-01 10:29 | EMERGENCY ROOM VISIT NOTE ---
History Report prepared by Lam: Janae Arias Under the Supervision of: Dr. Cayden Ramirez M.D. First contact with patient: 09:44 Chief Complaint: ILLNESS Stated Complaint: VERY SICK - SORE - RUNDOWN - POSSIBLE INFECTION History of Present Illness The patient is a 41 year old male who presents to the Emergency Room with complaints of a worsening illness for the past two days. The patient was recently in the hospital for an infection in his right hand. He was admitted January 17 and had surgery on the right hand. He was discharged on Keflex. The patient has been taking this medication as prescribed and finished it about 2-3 days ago. He has not followed up with his surgeon yet. The patient states that his right hand is still painful and swollen. He rates his pain as a 7/10 in severity. Over the past two days the patient has developed generalized body aches and shortness of breath. He reports a lack of energy and burning with urination. Source of History: patient Onset: two days ago Position: other (global) Symptom Intensity: 7/10 Quality: other (illness) Timing: worsening Associated Symptoms: + SOB, + urinary symptoms Note: Pt notes generalized body aches and lack of energy. Review of Systems See HPI for pertinent positives & negatives. A total of 10 systems reviewed and were otherwise negative. Past Medical & Surgical Medical Problems: (1) Cellulitis (2) Cellulitis of hand, right (3) No significant past medical history (4) Sepsis Surgical Problems: (1) Hx of tonsillectomy Family History Cancer Diabetes mellitus Heart disease Hypertension Lung disease Social History Smoking Status: Current Every Day Smoker Alcohol Use: none Drug Use: none Marital Status: Housing Status: lives with family Occupation Status: employed Current/Historical Medications No Active Prescriptions or Reported Meds Allergies Coded Allergies: Erythromycin (Verified Adverse Reaction, Severe, GI UPSET & DIZZY, 02/01/17 ) Physical Exam Vital Signs Date Time Temp Pulse Resp B/P (MAP) Pulse Ox O2 Delivery O2 Flow Rate FiO2 02/01/17 12:09 37.0 73 16 106/66 97 Room Air 02/01/17 11:50 99 Room Air 02/01/17 11:04 67 18 99 Room Air 02/01/17 11:00 97 Room Air 02/01/17 11:00 77 02/01/17 11:00 74 16 118/67 99 Room Air 8/25/17 09:41 37.2 84 18 114/76 96 Room Air Physical Exam GENERAL: Patient is a healthy-appearing well-nourished 41 year old male. HEAD: Normocephalic atraumatic EYES: Ocular movements intact pupils equal and react to light OROPHARYNX mucous membranes are moist no exudates present no erythema or edema present NECK: Supple no nuchal rigidity CHEST: Good equal expansion LUNGS: Diffuse wheezing throughout his lung pineda. CARDIAC: Normal S1 and S2 ABDOMEN: Soft nontender no guarding BACK: No CVA tenderness EXTREMITIES: Right hand with suture still in place and gross swelling too the 4th and 5th metacarpals. No clubbing cyanosis or edema NEURO: Patient is following commands and answering questions appropriately. Alert and oriented x3 Cranial Nerves 2-12 grossly intact Medical Decision & Procedures ER Provider Diagnostic Interpretation: Radiology results as stated below per my review and radiologist interpretation: RIGHT HAND 3 VIEWS HISTORY: Pt c/o Rt hand pain Right COMPARISON: Right hand 01/17/2017. FINDINGS: Old, healed right fifth carpal fracture. No acute fracture or dislocation. Focal soft tissue swelling within the ulnar side of the hand. This has slightly improved. No radiopaque foreign bodies. IMPRESSION: 1. No acute fractures within the right hand. 2. Slight improvement in the focal soft tissue swelling within the ulnar side of the hand. Electronically signed by: Herb Mclain M.D. 02/01/2017 11:13 AM Dictated Date/Time: 02/01/2017 11:11 AM CHEST ONE VIEW PORTABLE CLINICAL HISTORY: Sepsis. COMPARISON STUDY: Chest radiograph January 17, 2017. FINDINGS: Lung volumes are normal. No pneumothorax or pleural effusion is identified. There is no consolidation to suggest pneumonia. Pulmonary vascularity is normal. Cardiomediastinal silhouette is normal. The appearance of the chest is unchanged. IMPRESSION: No acute cardiopulmonary findings. Electronically signed by: Sammy Sparks M.D. 02/01/2017 10:51 AM Dictated Date/Time: 02/01/2017 10:50 AM Laboratory Results 02/01/17 10:10 Red Blood Count 4.32, Mean Corpuscular Volume 91.7, Mean Corpuscular Hemoglobin 31.5, Mean Corpuscular Hemoglobin Concent 34.3, Mean Platelet Volume 9.9, Neutrophils (%) (Auto) 87.5, Lymphocytes (%) (Auto) 8.1, Monocytes (%) (Auto) 3.9, Eosinophils (%) (Auto) 0.1, Basophils (%) (Auto) 0.0, Neutrophils # (Auto) 18.56, Lymphocytes # (Auto) 1.73, Monocytes # (Auto) 0.83, Eosinophils # (Auto) 0.03, Basophils # (Auto) 0.01 Test 02/01/17 10:10 02/01/17 10:24 White Blood Count 21.24 K/uL (4.8-10.8) Red Blood Count 4.32 M/uL (4.7-6.1) Hemoglobin 13.6 g/dL (14.0-18.0) Hematocrit 39.6 % (42-52) Mean Corpuscular Volume 91.7 fL (80-100) Mean Corpuscular Hemoglobin 31.5 pg (25-34) Mean Corpuscular Hemoglobin Concent 34.3 g/dl (32-36) Platelet Count 277 K/uL (130-400) Mean Platelet Volume 9.9 fL (7.4-10.4) Neutrophils (%) (Auto) 87.5 % Lymphocytes (%) (Auto) 8.1 % Monocytes (%) (Auto) 3.9 % Eosinophils (%) (Auto) 0.1 % Basophils (%) (Auto) 0.0 % Neutrophils # (Auto) 18.56 K/uL (1.4-6.5) Lymphocytes # (Auto) 1.73 K/uL (1.2-3.4) Monocytes # (Auto) 0.83 K/uL (0.11-0.59) Eosinophils # (Auto) 0.03 K/uL (0-0.5) Basophils # (Auto) 0.01 K/uL (0-0.2) RDW Standard Deviation 45.1 fL (36.4-46.3) RDW Coefficient of Variation 13.7 % (11.5-14.5) Immature Granulocyte % (Auto) 0.4 % Immature Granulocyte # (Auto) 0.08 K/uL (0.00-0.02) Prothrombin Time 10.5 SECONDS (9.0-12.0) Prothromb Time International Ratio 1.0 (0.9-1.1) Activated Partial Thromboplast Time 26.6 SECONDS (21.0-31.0) Partial Thromboplastin Ratio 1.0 Total Bilirubin 0.8 mg/dl (0.2-1) Aspartate Amino Transf (AST/SGOT) 15 U/L (15-37) Alanine Aminotransferase (ALT/SGPT) 49 U/L (12-78) Alkaline Phosphatase 70 U/L (45-117) Total Creatine Kinase 96 U/L (39-308) Creatine Kinase MB < 0.5 ng/ml (0.5-3.6) Creatine Kinase MB Ratio (0-3.0) Troponin I < 0.015 ng/ml (0-0.045) Total Protein 7.6 gm/dl (6.4-8.2) Albumin 3.5 gm/dl (3.4-5.0) Globulin 4.1 gm/dl (2.5-4.0) Albumin/Globulin Ratio 0.9 (0.9-2) Bedside Lactic Acid Venous 2.23 mmol/L (0.90-1.70) Labs reviewed by ED physician. Medications Administered Medications (Trade) Dose Ordered Sig/Kamilah Route Start Time Stop Time Status Last Admin Dose Admin Sodium Chloride 1,000 ml @ 999 mls/hr Q1H1M ONCE IV 02/01/17 09:50 02/01/17 10:50 DC 02/01/17 10:25 999 MLS/HR Ketorolac Tromethamine (Toradol Inj) 30 mg NOW STAT IV 02/01/17 09:50 02/01/17 09:53 DC 02/01/17 10:51 30 MG Ondansetron HCl (Zofran Inj) 4 mg NOW STAT IV 02/01/17 09:50 02/01/17 09:53 DC 02/01/17 10:51 4 MG Albuterol/ Ipratropium (Duoneb) 12 ml ONE ONCE INH 02/01/17 10:00 02/01/17 10:01 DC 02/01/17 11:01 12 ML Nicotine (Nicoderm Cq 21MG Patch) 1 patch NOW STAT TD 02/01/17 09:53 02/01/17 09:54 DC 02/01/17 10:51 1 PATCH Piperacillin Sod/ Tazobactam Sod (Zosyn Iv) 4.5 gm NOW STAT IV 02/01/17 10:55 02/01/17 10:57 DC 02/01/17 12:08 4.5 GM Daptomycin 426 mg/ Sodium Chloride 58.52 ml @ 100 mls/hr NOW STAT IV 02/01/17 10:55 02/01/17 11:30 DC 02/01/17 11:35 100 MLS/HR Acetaminophen (Tylenol Tab) 1,000 mg NOW STAT PO 02/01/17 11:05 02/01/17 11:06 DC 02/01/17 12:08 1,000 MG Potassium Chloride (Klor-Con M10) 70 meq NOW STAT PO 02/01/17 11:05 02/01/17 11:06 DC 02/01/17 12:09 70 MEQ Sodium Chloride 1,000 ml @ 999 mls/hr Q1H1M STAT IV 02/01/17 12:25 02/01/17 13:25 DC 02/01/17 12:25 999 MLS/HR ECG Indication: weakness Rate (beats per minute): 75 Rhythm: normal sinus Findings: RBBB, no acute ischemic change, no ectopy ED Course 0944: Past medical records reviewed. The patient was evaluated in room C4. A complete history and physical examination was performed. 0950: Zofran 4 mg IV, Toradol 30 mg IV, NSS 1000 ml @ 999 mls/hr IV 0953: Nicotine 1 patch TD 1000: DuoNeb 12 ml INH 1055: Daptomycin 426 mg/Sodium Chloride 58.52 ml @ 100 mls/hr IV, Zosyn 4.5 gm IV 1105: Klor-Con M10 70 meq PO, Tylenol 1000 mg PO 1107: I reassessed the patient at this time. He is doing well. I discussed the results and treatment plan with the patient and his family. I answered all pertaining questions that they had. They expressed understanding and verbalized agreement. 1141: I spoke with Dr. Cline of [facility] regarding the patient' s case. 1143: I spoke with Dr. Zavaleta. We discussed the patients case. The patient will be evaluated by the [facility] Hospitalist Group for further management. Medical Decision Differential diagnosis: Etiologies such as viral syndrome, otitis, pharyngitis, pneumonia, influenza, meningitis, urinary tract infection, sepsis, bacteremia, as well as others were entertained. This is a 41-year-old male who presents emergency department complaining of right hand pain. The patient recently had a lengthy hospital stay due to MRSA growing out of his hand. Based on this I did discuss the case with the hospitalist as well as the orthopedic surgeon on-call. The patient was pain cultured up and started on Zosyn as well as daptomycin. Patient was in agreement with the treatment plan. Medication Reconcilliation Current Medication List: was personally reviewed by me Blood Pressure Screening Patient's blood pressure: Normal blood pressure Consults Time Called: 1135 Consulting Physician: Dr. Cline Returned Call: [address] Cline of [facility] regarding the patient's case. Additional Consults: Time Called: 1137 Consulted Physician: Dr. Zavaleta Returned Call: 114 Additional Comments: I spoke with Dr. Zavaleta. We discussed the patients case. The patient will be evaluated by the [facility] Hospitalist Group for further management. Impression Primary Impression: Wound infection Scribe Attestation The scribe's documentation has been prepared under my direction and personally reviewed by me in its entirety. I confirm that the note above accurately reflects all work, treatment, procedures, and medical decision making performed by me. Departure Information Dispostion Being Evaluated By Hospitalist Prescriptions No Active Prescriptions or Reported Meds Referrals No Doctor, Assigned (PCP) Patient Instructions My [facility]
[2017-02-01 10:36] LABS: BASO ABS # 0.01 K/uL (0-0.2); COMPLETE YES; EOS % 0.1 %; HEMATOCRIT 39.6 % (42-52); IG% 0.4 %; LYMPH % 8.1 %; LYMPH ABS # 1.73 K/uL (1.2-3.4); MEAN CELL VOLUME 91.7 fL (80-100); MEAN CORPUSCULAR HEMOGLOBIN 31.5 pg (25-34); MEAN CORPUSCULAR HGB CONC 34.3 g/dl (32-36); MEAN PLATELET VOLUME 9.9 fL (7.4-10.4); MONO % 3.9 %; NEUT % 87.5 %; PLATELET COUNT 277 K/uL (130-400); RED BLOOD COUNT 4.32 M/uL (4.7-6.1); WHITE BLOOD COUNT 21.24 K/uL (4.8-10.8)
--- NOTE | 2017-02-01 10:52 | DIAGNOSTIC IMAGING REPORT ---
CHEST ONE VIEW PORTABLE CLINICAL HISTORY: Sepsis. COMPARISON STUDY: Chest radiograph January 17, 2017. FINDINGS: Lung volumes are normal. No pneumothorax or pleural effusion is identified. There is no consolidation to suggest pneumonia. Pulmonary vascularity is normal. Cardiomediastinal silhouette is normal. The appearance of the chest is unchanged. IMPRESSION: No acute cardiopulmonary findings. Electronically signed by: Sammy Sparks M.D. 02/01/2017 10:51 AM Dictated Date/Time: 02/01/2017 10:50 AM
[2017-02-01 10:53] LABS: PROTHROMBIN TIME (PATIENT) 10.5 SECONDS (9.0-12.0)
[2017-02-01 10:54] LABS: ALT/SGPT 49 U/L (12-78); AST/SGOT 15 U/L (15-37); BLOOD UREA NITROGEN 7 mg/dl (7-18); BUN/CREATININE RATIO 7.6 (10-20); CALCIUM 9.2 mg/dl (8.5-10.1); CARBON DIOXIDE 25 mmol/L (21-32); CHLORIDE 105 mmol/L (98-107); CREATININE 0.99 mg/dl (0.60-1.40); GLUCOSE 111 mg/dl (70-99); POTASSIUM 3.3 mmol/L (3.5-5.1); SODIUM 139 mmol/L (136-145)
[2017-02-01] MEDS ORDERED: DAPTOMYCIN IV STA (10:55)
[2017-02-01] MEDS ORDERED: SODIUM CHLORIDE 0.9% IV STA (10:55)
[2017-02-01] MEDS ORDERED: PIPERACILLIN/TAZOBACTAM 4.5 GM/100ML D5W IV STA (10:55)
[2017-02-01 10:59] LABS: ALB/GLOB RATIO 0.9 (0.9-2); ALKALINE PHOSPHATASE 70 U/L (45-117)
[2017-02-01 11:04] VITALS: PULSE 67; O2SAT 99
[2017-02-01] MEDS ORDERED: POTASSIUM CHLORIDE 10 MEQ TABCR PO STA (11:05)
[2017-02-01] MEDS ORDERED: ACETAMINOPHEN 500 MG TAB PO STA (11:05)
--- NOTE | 2017-02-01 11:14 | DIAGNOSTIC IMAGING REPORT ---
RIGHT HAND 3 VIEWS HISTORY: Pt c/o Rt hand pain Right COMPARISON: Right hand 01/17/2017. FINDINGS: Old, healed right fifth carpal fracture. No acute fracture or dislocation. Focal soft tissue swelling within the ulnar side of the hand. This has slightly improved. No radiopaque foreign bodies. IMPRESSION: 1. No acute fractures within the right hand. 2. Slight improvement in the focal soft tissue swelling within the ulnar side of the hand. Electronically signed by: Herb Mclain M.D. 02/01/2017 11:13 AM Dictated Date/Time: 02/01/2017 11:11 AM
[2017-02-01 11:50] VITALS: O2SAT 99; Ht 170.2 cm; Wt 71.1 kg
[2017-02-01] MEDS ORDERED: SODIUM CHLORIDE 0.9% 1000ML 1,000 ML IV STA (12:25)
[2017-02-01] MEDS ORDERED: SODIUM CHLORIDE 0.9% 150ML 150 ML IV STA (12:25)
--- NOTE | 2017-02-01 12:38 | History and Physical ---
History & Physical Date & Time of Service: Feb 01, 2017 at 12:38 . Chief Complaint: fever, chills, myalgias . Primary Care Physician: No Doctor, Assigned History of Present Illness Source: patient, hospital records 41-year-old male followed by [facility]. Hospitalized at [facility] 01/17/17 through 01/23/17 with an abscess involving the dorsum of the right hand with associated cellulitis of the hand and forearm and extensive axillary lymphadenopathy. Incision and drainage of the abscess performed by Dr. Vivas on 01/18/17. Cultures grew Staphylococcus aureus, methicillin sensitive. Initially treated with intravenous vancomycin and piperacillin, transition to IV cefazolin, and discharged to home on cephalexin to complete a ten-day course of therapy. Patient took cephalexin as prescribed. Arrangements were made for follow-up with Orthopedics, appointment pending. A few days ago patient started experiencing fever and chills. Minimal brown drainage from right hand incision. Overall, the hand feels much better than before. Started having diarrhea a few days ago, very loose without apparent melena or hematochezia. Worsening fever and chills, malaise, myalgias over past 1-2 days. Experiencing low back pain. Tried ibuprofen for pain without much relief. . Past Medical/Surgical History Medical Problems: (1) No significant past medical history Status: Chronic Surgical Problems: (1) Hx of tonsillectomy Status: Resolved Family History Cancer Diabetes mellitus Heart disease Hypertension Lung disease Social History Smoking Status: Current Every Day Smoker Drug Use: none Marital Status: Occupational Status: employed Allergies Coded Allergies: Erythromycin (Verified Adverse Reaction, Severe, GI UPSET & DIZZY, 02/01/17 ) Home Medications No Active Prescriptions or Reported Meds Review of Systems As noted above in HPI. . Physical Exam Vital Signs Date Time Temp Pulse Resp B/P (MAP) Pulse Ox O2 Delivery O2 Flow Rate FiO2 02/01/17 12:09 37.0 73 16 106/66 97 Room Air 02/01/17 11:50 99 Room Air 02/01/17 11:04 67 18 99 Room Air 02/01/17 11:00 97 Room Air 02/01/17 11:00 77 02/01/17 11:00 74 16 118/67 99 Room Air 02/01/17 09:41 37.2 84 18 114/76 96 Room Air General Appearance: + moderate distress Head: normocephalic, atraumatic Eyes: PERRL, EOMI, sclerae normal ENT: hearing grossly normal Neck: supple, no adenopathy, thyroid normal, trachea midline Respiratory/Chest: lungs clear, no respiratory distress, no accessory muscle use Cardiovascular: regular rate, rhythm, no edema, no gallop, no JVD, no murmur Abdomen/GI: normal bowel sounds, non tender, soft, no organomegaly, no pulsatile mass Extremities/Musculoskelatal: no calf tenderness, + pertinent finding (moderate swelling of dorsum right hand without erythema, warmth, tenderness; 1 cm incision without drainage) Neurologic/Psych: alert, normal mood/affect, oriented x 3 Skin: normal color, warm/dry Lymphatic: + axillary node abnormality (bilateral axillary adenopathy, improved compared to last admission) Diagnostics Laboratory Results Results Past 24 Hours Test 02/01/17 10:10 02/01/17 10:24 Range/Units White Blood Count 21.24 4.8-10.8 K/uL Red Blood Count 4.32 4.7-6.1 M/uL Hemoglobin 13.6 14.0-18.0 g/dL Hematocrit 39.6 42-52 % Mean Corpuscular Volume 91.7 80-100 fL Mean Corpuscular Hemoglobin 31.5 25-34 pg Mean Corpuscular Hemoglobin Concent 34.3 32-36 g/dl Platelet Count 277 130-400 K/uL Mean Platelet Volume 9.9 7.4-10.4 fL Neutrophils (%) (Auto) 87.5 % Lymphocytes (%) (Auto) 8.1 % Monocytes (%) (Auto) 3.9 % Eosinophils (%) (Auto) 0.1 % Basophils (%) (Auto) 0.0 % Neutrophils # (Auto) 18.56 1.4-6.5 K/uL Lymphocytes # (Auto) 1.73 1.2-3.4 K/uL Monocytes # (Auto) 0.83 0.11-0.59 K/uL Eosinophils # (Auto) 0.03 0-0.5 K/uL Basophils # (Auto) 0.01 0-0.2 K/uL RDW Standard Deviation 45.1 36.4-46.3 fL RDW Coefficient of Variation 13.7 11.5-14.5 % Immature Granulocyte % (Auto) 0.4 % Immature Granulocyte # (Auto) 0.08 0.00-0.02 K/uL Prothrombin Time 10.5 9.0-12.0 SECONDS Prothromb Time International Ratio 1.0 0.9-1.1 Activated Partial Thromboplast Time 26.6 21.0-31.0 SECONDS Partial Thromboplastin Ratio 1.0 Sodium Level 139 136-145 mmol/L Potassium Level 3.3 3.5-5.1 mmol/L Chloride Level 105 98-107 mmol/L Carbon Dioxide Level 25 21-32 mmol/L Anion Gap 9.0 3-11 mmol/L Blood Urea Nitrogen 7 7-18 mg/dl Creatinine 0.99 0.60-1.40 mg/dl Est Creatinine Clear Calc Drug Dose 93.7 ml/min Estimated GFR () 110.7 Estimated GFR (Non- 95.5 BUN/Creatinine Ratio 7.6 10-20 Random Glucose 111 70-99 mg/dl Calcium Level 9.2 8.5-10.1 mg/dl Total Bilirubin 0.8 0.2-1 mg/dl Aspartate Amino Transf (AST/SGOT) 15 15-37 U/L Alanine Aminotransferase (ALT/SGPT) 49 12-78 U/L Alkaline Phosphatase 70 45-117 U/L Total Creatine Kinase 96 39-308 U/L Creatine Kinase MB < 0.5 0.5-3.6 ng/ml Creatine Kinase MB Ratio 0-3.0 Troponin I < 0.015 0-0.045 ng/ml Total Protein 7.6 6.4-8.2 gm/dl Albumin 3.5 3.4-5.0 gm/dl Globulin 4.1 2.5-4.0 gm/dl Albumin/Globulin Ratio 0.9 0.9-2 Bedside Lactic Acid Venous 2.23 0.90-1.70 mmol/L Microbiology Results 02/01/17 Blood Culture, Received Pending 02/01/17 Blood Culture, Received Pending Diagnostic Radiology CHEST ONE VIEW PORTABLE CLINICAL HISTORY: Sepsis. COMPARISON STUDY: Chest radiograph January 17, 2017. FINDINGS: Lung volumes are normal. No pneumothorax or pleural effusion is identified. There is no consolidation to suggest pneumonia. Pulmonary vascularity is normal. Cardiomediastinal silhouette is normal. The appearance of the chest is unchanged. IMPRESSION: No acute cardiopulmonary findings. Electronically signed by: Sammy Sparks M.D. 02/01/2017 10:51 AM RIGHT HAND 3 VIEWS FINDINGS: Old, healed right fifth carpal fracture. No acute fracture or dislocation. Focal soft tissue swelling within the ulnar side of the hand. This has slightly improved. No radiopaque foreign bodies. IMPRESSION: 1. No acute fractures within the right hand. 2. Slight improvement in the focal soft tissue swelling within the ulnar side of the hand. Electronically signed by: Herb Mclain M.D. 02/01/2017 11:13 AM . Impression Assessment and Plan SEPSIS Meets criteria for sepsis per 2001 definition and current CMS guidelines. WBC 21,240 with immature granulocytes. Serum lactate 2.23. Hemodynamically stable. Blood cultures obtained in ED. Received broad-spectrum antibiotic coverage with intravenous piperacillin/ tazobactam and daptomycin. Fluid resuscitation administered. Possible sources of infection: persistent/recurrent abscess right hand (although exam improved) lumbar discitis/epidural abscess/paraspinal abscess Clostridium difficile colitis Monitor hemodynamics. Check repeat serum lactate within 6 hours. Continue Zosyn. Change from daptomycin to vancomycin for gram-positive coverage. Check MRI lumbar spine. Check stool for C. difficile. Consult Orthopedics for follow-up of abscess of the right hand. Monitor hemodynamics. Check repeat serum lactate within 6 hours. AXILLARY ADENOPATHY Present during last admission. Most likely secondary to abscess right hand. Testing for HIV, CMV IgM, EBV IgM, toxoplasma were all negative. Follow-up imaging with CT of chest, abdomen, pelvis recommended if adenopathy does not resolve. VTE PROPHYLAXIS Utilize SCDs initially. Started low-dose anticoagulant prophylaxis if no need for any invasive procedures. Ambulate. DISPOSITION Anticipated discharge to home. Medical follow-up with [facility]. . Advanced Directives Existing Living Will: No Existing Power of Network Strategist: No VTE Prophylaxis Risk Level: Low Given or contraindicated: SCD's
[2017-02-01] MEDS ORDERED: HYDROmorphone INJ 2 MG/ML SYR/VIAL IV ONE (12:45)
[2017-02-01] MEDS ORDERED: LACTATED RINGER'S 1000ML 1,000 ML IV SCH (12:45)
[2017-02-01] MEDS ORDERED: ONDANSETRON INJ 2 MG/ML 2 ML VIAL IV PRN (12:45)
[2017-02-01] MEDS ORDERED: HYDROmorphone INJ 2 MG/ML SYR/VIAL IV PRN (12:45)
[2017-02-01 14:00] VITALS: BP 109/70; PULSE 62; TEMP 36.6; O2SAT 98
[2017-02-01 14:49] LABS: BUN/CREATININE RATIO 8.8 (10-20); CALCIUM 8.4 mg/dl (8.5-10.1); CREATININE 0.84 mg/dl (0.60-1.40); POTASSIUM 3.9 mmol/L (3.5-5.1)
--- NOTE | 2017-02-01 15:08 | DIAGNOSTIC IMAGING REPORT ---
ORBITS FOR MRI CLINICAL HISTORY: 41 years-old Male presenting with H/O METAL IN EYE. MRI CLEARANCE. TECHNIQUE: 3 views of the orbits were obtained. COMPARISON: CT from 01/22/2017. FINDINGS: No radiopaque foreign body projects over the orbits. Bony orbits grossly intact. Paranasal sinuses grossly clear. Visualized portion of the calvarium intact. IMPRESSION: No intraorbital metallic foreign body to preclude MRI exam. Electronically signed by: Jose Bond M.D. 02/01/2017 3:07 PM Dictated Date/Time: 02/01/2017 3:06 PM
[2017-02-01] MEDS ORDERED: GADAVIST IV PRN (16:00)
[2017-02-01 16:21] VITALS: BP 92/59; PULSE 62; TEMP 36.5; O2SAT 98
--- NOTE | 2017-02-01 16:54 | DIAGNOSTIC IMAGING REPORT ---
LUMBAR SPINE COMBINATION CLINICAL HISTORY: 41 years-old Male presenting with sepsis, lumbar pain (r/o osteo, discitis, paraspinal abscess). TECHNIQUE: Multisequence, multiplanar MR imaging of the lumbar spine was performed before and after the administration of intravenous contrast. IV contrast: 7 mL of Gadavist. COMPARISON: None. FINDINGS: Localizer images: Unremarkable. Normal lumbar lordosis. Multiple Schmorl's nodes noted, some with associated minimal bony edema. Otherwise vertebral bodies maintain normal height, alignment, and bone marrow signal intensity. Disc desiccation noted at T12-L1, L1-2, and L4-5. No abnormal T2 hyperintensity within the intervertebral disc spaces. No significant paraspinal inflammatory changes. Postcontrast imaging demonstrates normal enhancement pattern. Minimal disc bulge at L4-5 with mild bilateral neural foraminal narrowing resulting. No significant spinal canal stenosis. No other significant degenerative change. Spinal cord ends in good position at the superior endplate of L1. Cauda equina maintains normal morphology. No abnormal enhancements of the cauda equina. Paraspinal soft tissues within normal limits. IMPRESSION: No convincing evidence of discitis osteomyelitis. Minimal degenerative change at L4-5 as above. Electronically signed by: Jose Bond M.D. 02/01/2017 4:53 PM Dictated Date/Time: 02/01/2017 4:48 PM
[2017-02-01 20:47] LABS: URINE APPEARANCE CLEAR (CLEAR); URINE BILIRUBIN NEG (NEG); URINE COLOR DK YELLOW; URINE NITRITE NEG (NEG); URINE PH 5.5 (4.5-7.5); URINE SPECIFIC GRAVITY 1.033 (1.000-1.030); UROBILINOGEN NEG (NEG); ZZUR CULT IF INDIC CLEAN CATCH NO
[2017-02-01 20:48] LABS: MANUAL MICROSCOPIC REQUIRED? NO; REVIEW REQ? NO
[2017-02-01 23:11] VITALS: BP 134/88; PULSE 96; TEMP 38; O2SAT 97
[2017-02-01] MEDS ORDERED: PIPERACILL/TAZOBAC CONSULT ACTIVE PRN (23:45)
[2017-02-02] MEDS ORDERED: PIPERACILL/TAZOBAC IV 4.5 GM in DEXTROSE 5% 100ML 100 ML IV SCH ×2
[2017-02-02] MEDS ORDERED: PIPERACILL/TAZOBAC IV 4.5 GM in DEXTROSE 5% 100ML IV SCH ×2
[2017-02-02] MEDS: HYDROmorphone INJ 1 MG/ML SYR IV PRN ×6 (00:06→22:26)
[2017-02-02] MEDS: ACETAMINOPHEN 500 MG TAB PO PRN (00:07)
[2017-02-02 01:05] VITALS: TEMP 37
[2017-02-02] MEDS ORDERED: VANCOMYCIN CONSULT ACTIVE PRN (03:45)
[2017-02-02] MEDS: PIPERACILL/TAZOBAC IV 4.5 GM in DEXTROSE 5% 100ML IV SCH ×3 (04:03→21:23)
[2017-02-02 07:22] VITALS: BP 107/73; PULSE 77; TEMP 37.3; O2SAT 97
[2017-02-02 08:56] LABS: BASO % 0.1 %; BASO ABS # 0.01 K/uL (0-0.2); COMPLETE YES; EOS % 1.7 %; HEMATOCRIT 37.7 % (42-52); IG% 0.3 %; LYMPH % 10.6 %; LYMPH ABS # 1.17 K/uL (1.2-3.4); MEAN CELL VOLUME 92.9 fL (80-100); MEAN CORPUSCULAR HGB CONC 33.4 g/dl (32-36); MEAN PLATELET VOLUME 10.2 fL (7.4-10.4); MONO % 7.4 %; NEUT % 79.9 %; PLATELET COUNT 277 K/uL (130-400); RED BLOOD COUNT 4.06 M/uL (4.7-6.1); WHITE BLOOD COUNT 11.02 K/uL (4.8-10.8)
[2017-02-02 09:27] LABS: BLOOD UREA NITROGEN 8 mg/dl (7-18); BUN/CREATININE RATIO 7.5 (10-20); C-REACTIVE PROTEIN 3.83 mg/dl (0-0.29); CALCIUM 8.7 mg/dl (8.5-10.1); CARBON DIOXIDE 25 mmol/L (21-32); CHLORIDE 107 mmol/L (98-107); GLUCOSE 92 mg/dl (70-99); SODIUM 138 mmol/L (136-145)
[2017-02-02] MEDS ORDERED: VANCOMYCIN INJ 0 MG in SODIUM CHLORIDE 0.9% 500ML 500 ML IV SCH (11:00)
[2017-02-02] MEDS ORDERED: VANCOMYCIN INJ 1,750 MG in SODIUM CHLORIDE 0.9% 500ML 500 ML IV SCH (11:00)
--- NOTE | 2017-02-02 11:23 | Medical Consult ---
Consultation Date of Consultation: Feb 02, 2017. Attending Physician: David Porter MD Reason for Consultation: right hand s/p I&D abscess History of Present Illness pt had I & D right hand abscess on 01/18. presented to ER for increasing fever chills and beginning of diarrhea hand pain and swelling has improved since previous hospital stay Past Medical/Surgical History Medical Problems: (1) Axillary lymphadenopathy Status: Acute (2) Fever Status: Acute (3) Infection of right hand Status: Acute (4) Wound infection Status: Acute Family History Cancer Diabetes mellitus Heart disease Hypertension Lung disease Social History Smoking Status: Current Every Day Smoker Marital Status: Housing Status: lives with family Occupation Status: employed Allergies Coded Allergies: Erythromycin (Verified Adverse Reaction, Severe, GI UPSET & DIZZY, 02/01/17 ) Current Inpatient Medications Current Inpatient Medications Medications (Trade) Dose Ordered Sig/Kamilah Route Start Time Stop Time Status Last Admin Dose Admin Ondansetron HCl (Zofran Inj) 4 mg Q6H PRN IV 02/01/17 12:45 03/03/17 12:44 Acetaminophen (Tylenol Tab) 1,000 mg Q8 PRN PO 02/01/17 12:45 03/03/17 12:44 02/02/17 00:07 1,000 MG Hydromorphone HCl (Dilaudid Inj) 1 mg Q3H PRN IV 02/01/17 12:45 02/15/17 12:44 02/02/17 11:07 1 MG Gadobutrol (Gadavist) 7 mmol UD PRN IV 02/01/17 16:00 02/05/17 15:59 Hydromorphone HCl (Dilaudid Inj) 1 mg Q3H PRN IV 02/01/17 23:30 02/15/17 23:29 Piperacillin Sod/ Tazobactam Sod 4.5 gm/Dextrose 120 ml @ 30 mls/hr Q8H IV 02/02/17 04:00 02/12/17 03:59 02/02/17 04:03 30 MLS/HR Piperacillin Sod/ Tazobactam Sod (Consult) 1 ea UD PRN N/A 02/01/17 23:45 03/03/17 23:44 Vancomycin HCl 1750 mg/Sodium Chloride 535 ml @ 200 mls/hr TODAY@1100 IV 02/02/17 11:00 8/26/17 13:41 02/02/17 11:06 200 MLS/HR Vancomycin HCl (Consult) 1 ea UD PRN N/A 02/02/17 03:45 03/04/17 03:44 Review of Systems Constitutional: No fever (at exam today), No chills, No weakness Respiratory: No shortness of breath Cardiovascular: No chest pain Abdomen: + diarrhea Musculoskeletal: No joint pain Physical Exam Date Time Temp Pulse Resp B/P (MAP) Pulse Ox O2 Delivery O2 Flow Rate FiO2 02/02/17 07:22 37.3 77 19 107/73 (84) 97 Room Air 02/02/17 01:05 37.0 02/02/17 00:00 Room Air 02/01/17 23:11 38.0 96 20 134/88 (103) 97 Room Air 02/01/17 16:35 Room Air 02/01/17 16:21 36.5 62 18 92/59 (70) 98 Room Air 02/01/17 14:44 Room Air 02/01/17 14:00 36.6 62 15 109/70 (83) 98 Room Air 02/01/17 13:22 70 16 107/66 100 Room Air 02/01/17 13:14 71 02/01/17 12:09 37.0 73 16 106/66 97 Room Air 02/01/17 11:50 99 Room Air General Appearance: no apparent distress Extremities/Musculoskelatal: + swelling (mild, no active drainage or erythema. clinical exam does not show any active infection) Laboratory Results Last 24 Hours Test 02/01/17 14:11 02/01/17 14:12 02/02/17 08:07 02/02/17 10:44 Lactic Acid Level 0.8 mmol/L Sodium Level 144 mmol/L 138 mmol/L Potassium Level 3.9 mmol/L mmol/L Chloride Level 111 mmol/L 107 mmol/L Carbon Dioxide Level 28 mmol/L 25 mmol/L Anion Gap 5.0 mmol/L 6.0 mmol/L Blood Urea Nitrogen 7 mg/dl 8 mg/dl Creatinine 0.84 mg/dl 1.00 mg/dl Est Creatinine Clear Calc Drug Dose 110.4 ml/min 92.7 ml/min Estimated GFR () 127.8 109.4 Estimated GFR (Non- 110.3 94.4 BUN/Creatinine Ratio 8.8 7.5 Random Glucose 94 mg/dl 92 mg/dl Calcium Level 8.4 mg/dl 8.7 mg/dl White Blood Count 11.02 K/uL Red Blood Count 4.06 M/uL Hemoglobin 12.6 g/dL Hematocrit 37.7 % Mean Corpuscular Volume 92.9 fL Mean Corpuscular Hemoglobin 31.0 pg Mean Corpuscular Hemoglobin Concent 33.4 g/dl Platelet Count 277 K/uL Mean Platelet Volume 10.2 fL Neutrophils (%) (Auto) 79.9 % Lymphocytes (%) (Auto) 10.6 % Monocytes (%) (Auto) 7.4 % Eosinophils (%) (Auto) 1.7 % Basophils (%) (Auto) 0.1 % Neutrophils # (Auto) 8.81 K/uL Lymphocytes # (Auto) 1.17 K/uL Monocytes # (Auto) 0.81 K/uL Eosinophils # (Auto) 0.19 K/uL Basophils # (Auto) 0.01 K/uL RDW Standard Deviation 46.9 fL RDW Coefficient of Variation 13.8 % Immature Granulocyte % (Auto) 0.3 % Immature Granulocyte # (Auto) 0.03 K/uL Erythrocyte Sedimentation Rate 17 mm/hr C-Reactive Protein 3.83 mg/dl Procalcitonin 0.10 ng/ml Assessment & Plan Resolving right hand infection s/p Right hand I&D As per primary team, concerned for possible C diff or other source of infection given his WBC count Orthopedics will sign off today regarding right hand. Please consult again if needed
--- NOTE | 2017-02-02 15:02 | Pharmacy Progress Note ---
Pharmacy Antibiotic Consult Date of Service: Feb 02, 2017. Pharmacy Dosing Scope Pharmacy is consulted to initiate vancomycin and Zosyn IV dosing therapy, order appropriate labs and adjust drug dose/frequency. Subjective The patient is a 41 year old male admitted on Feb 01, 2017 at 12:42 with sepsis , elevated WBC count. Recent admission for abscess/cellulitis of right hand and forearm with I&D. Received IV piperacillin/tazobactam 4.5gm and daptomycin 426mg in ER. Possible sources of infection are: rt hand abscess although improved, C. diff colitis, lumbar discitis/epidural abscess/paraspinal abscess. Objective Height (Feet): 5 Height (Inches): 7.00 Weight (Kilograms): 71.100 Lab Results (24hrs): Test 02/02/17 08:07 02/02/17 10:44 White Blood Count 11.02 K/uL (4.8-10.8) Red Blood Count 4.06 M/uL (4.7-6.1) Hemoglobin 12.6 g/dL (14.0-18.0) Hematocrit 37.7 % (42-52) Mean Corpuscular Volume 92.9 fL (80-100) Mean Corpuscular Hemoglobin 31.0 pg (25-34) Mean Corpuscular Hemoglobin Concent 33.4 g/dl (32-36) Platelet Count 277 K/uL (130-400) Mean Platelet Volume 10.2 fL (7.4-10.4) Neutrophils (%) (Auto) 79.9 % Lymphocytes (%) (Auto) 10.6 % Monocytes (%) (Auto) 7.4 % Eosinophils (%) (Auto) 1.7 % Basophils (%) (Auto) 0.1 % Neutrophils # (Auto) 8.81 K/uL (1.4-6.5) Lymphocytes # (Auto) 1.17 K/uL (1.2-3.4) Monocytes # (Auto) 0.81 K/uL (0.11-0.59) Eosinophils # (Auto) 0.19 K/uL (0-0.5) Basophils # (Auto) 0.01 K/uL (0-0.2) RDW Standard Deviation 46.9 fL (36.4-46.3) RDW Coefficient of Variation 13.8 % (11.5-14.5) Immature Granulocyte % (Auto) 0.3 % Immature Granulocyte # (Auto) 0.03 K/uL (0.00-0.02) Erythrocyte Sedimentation Rate 17 mm/hr (0-14) Sodium Level 138 mmol/L (136-145) Potassium Level mmol/L (3.5-5.1) 4.0 mmol/L (3.5-5.1) Chloride Level 107 mmol/L (98-107) Carbon Dioxide Level 25 mmol/L (21-32) Anion Gap 6.0 mmol/L (3-11) Blood Urea Nitrogen 8 mg/dl (7-18) Creatinine 1.00 mg/dl (0.60-1.40) Est Creatinine Clear Calc Drug Dose 92.7 ml/min Estimated GFR () 109.4 Estimated GFR (Non- 94.4 BUN/Creatinine Ratio 7.5 (10-20) Random Glucose 92 mg/dl (70-99) Calcium Level 8.7 mg/dl (8.5-10.1) C-Reactive Protein 3.83 mg/dl (0-0.29) Procalcitonin 0.10 ng/ml (0-0.5) Recent Pertinent Medications Daptomycin in ER, but is changed to vancomycin for gm positive coverage. Assessment & Plan Assessment 41 year old male ordered vancomycin and Zosyn for sepsis. * recent [facility] stay for abscess/cellulitis of rt hand with I&D--grew staph, not MRSA. Pt completed 10 day course of Keflex on discharge. * Pt admitted with elevated WBC count and temp as well as diarrhea. Plan Vancomycin for treatment of sepsis. Vancomycin IV * Loading dose: 1750 mg - (~25mg/kg) * Maintenance dose: 1000 mg IV (14 mg/kg) every 10 hours * Goal trough level for sepsis: 15 to 20 mcg/mL * Trough level ordered for 02/04 prior to 0200 dose. Pharmacy will continue to follow and will adjust dose/frequency as necessary. Thank you
[2017-02-02 15:25] VITALS: BP 115/71; PULSE 75; TEMP 36.8; O2SAT 95
--- NOTE | 2017-02-02 15:42 | Progress Note ---
Internal Med Progress Note Date of Service: Feb 02, 2017. Provider Documentation: SUBJECTIVE: afebrile today complans of soreness in his knees and back eating ok diarrhea improved and no bowel movement today yet eating ok no nausea or abdominal pain OBJECTIVE: Vital Signs-as noted below Exam: General-alert and oriented. Not in distress ENT-normal hearing Neck-no neck masses Lungs-cta b/l no wheezing or crackles Heart-s1 and s2 heard regular rate and rhythm, no murmurs Abdomen-soft bowel sounds present non tender no distension Extremities- right wound healing, no edema Neuro-alert and oriented moves extremities Lab data as noted below. ASSESSMENT & PLAN: SEPSIS Meets criteria for sepsis per 2001 definition and current CMS guidelines. Presented with WBC 21,240 with immature granulocytes. and Serum lactate 2.23. Hemodynamically stable. s/p i and d recently for right hand abscess Blood cultures obtained in ED. Received broad-spectrum antibiotic coverage with intravenous piperacillin/ tazobactam and daptomycin. lactic acid normalized currently hemodynamically stable currently on iv vanco and zosyn MRi back unremarkable Ortho signed off for recent right hand infection as it is healing well await c diff studies -diarrhea improved await cx. AXILLARY ADENOPATHY Present during last admission. Most likely secondary to abscess right hand. Testing were done for r HIV, CMV IgM, EBV IgM, toxoplasma which were all negative. Follow-up imaging with CT of chest, abdomen, pelvis recommended if adenopathy does not resolve as out patient VTE PROPHYLAXIS hep sub q ambulation DISPOSITION Anticipated discharge to home. Medical follow-up with [facility]. . Vital Signs: Date Time Temp Pulse Resp B/P (MAP) Pulse Ox O2 Delivery O2 Flow Rate FiO2 02/02/17 15:25 36.8 75 18 115/71 (86) 95 Room Air 02/02/17 07:50 Room Air 02/02/17 07:22 37.3 77 19 107/73 (84) 97 Room Air 02/02/17 01:05 37.0 02/02/17 00:00 Room Air 02/01/17 23:11 38.0 96 20 134/88 (103) 97 Room Air 02/01/17 16:35 Room Air 02/01/17 16:21 36.5 62 18 92/59 (70) 98 Room Air Lab Results: Results Past 24 Hours Test 02/02/17 08:07 02/02/17 10:44 Range/Units White Blood Count 11.02 4.8-10.8 K/uL Red Blood Count 4.06 4.7-6.1 M/uL Hemoglobin 12.6 14.0-18.0 g/dL Hematocrit 37.7 42-52 % Mean Corpuscular Volume 92.9 80-100 fL Mean Corpuscular Hemoglobin 31.0 25-34 pg Mean Corpuscular Hemoglobin Concent 33.4 32-36 g/dl Platelet Count 277 130-400 K/uL Mean Platelet Volume 10.2 7.4-10.4 fL Neutrophils (%) (Auto) 79.9 % Lymphocytes (%) (Auto) 10.6 % Monocytes (%) (Auto) 7.4 % Eosinophils (%) (Auto) 1.7 % Basophils (%) (Auto) 0.1 % Neutrophils # (Auto) 8.81 1.4-6.5 K/uL Lymphocytes # (Auto) 1.17 1.2-3.4 K/uL Monocytes # (Auto) 0.81 0.11-0.59 K/uL Eosinophils # (Auto) 0.19 0-0.5 K/uL Basophils # (Auto) 0.01 0-0.2 K/uL RDW Standard Deviation 46.9 36.4-46.3 fL RDW Coefficient of Variation 13.8 11.5-14.5 % Immature Granulocyte % (Auto) 0.3 % Immature Granulocyte # (Auto) 0.03 0.00-0.02 K/uL Erythrocyte Sedimentation Rate 17 0-14 mm/hr Sodium Level 138 136-145 mmol/L Potassium Level 4.0 3.5-5.1 mmol/L Chloride Level 107 98-107 mmol/L Carbon Dioxide Level 25 21-32 mmol/L Anion Gap 6.0 3-11 mmol/L Blood Urea Nitrogen 8 7-18 mg/dl Creatinine 1.00 0.60-1.40 mg/dl Est Creatinine Clear Calc Drug Dose 92.7 ml/min Estimated GFR () 109.4 Estimated GFR (Non- 94.4 BUN/Creatinine Ratio 7.5 10-20 Random Glucose 92 70-99 mg/dl Calcium Level 8.7 8.5-10.1 mg/dl C-Reactive Protein 3.83 0-0.29 mg/dl Procalcitonin 0.10 0-0.5 ng/ml
[2017-02-02] MEDS: VANCOMYCIN INJ 1,000 MG in SODIUM CHLORIDE 0.9% 250ML 250 ML IV SCH (21:23)
[2017-02-02] MEDS: HEPARIN SOD 5000 UNIT/0.5 ML CARP SQ SCH (21:27)
[2017-02-02 22:58] VITALS: BP 113/72; PULSE 75; TEMP 36.7; O2SAT 95
[2017-02-03] MEDS: HYDROmorphone INJ 1 MG/ML SYR IV PRN ×5 (01:49→20:59)
[2017-02-03] MEDS: PIPERACILL/TAZOBAC IV 4.5 GM in DEXTROSE 5% 100ML IV SCH ×3 (03:40→19:53)
[2017-02-03] MEDS: VANCOMYCIN INJ 1,000 MG in SODIUM CHLORIDE 0.9% 250ML 250 ML IV SCH ×2 (05:37→16:04)
[2017-02-03 07:32] VITALS: BP 102/63; PULSE 75; TEMP 36.7; O2SAT 95
[2017-02-03] MEDS: HEPARIN SOD 5000 UNIT/0.5 ML CARP SQ SCH ×2 (08:54→19:58)
--- NOTE | 2017-02-03 11:32 | Progress Note ---
Internal Med Progress Note Date of Service: Feb 03, 2017. Provider Documentation: SUBJECTIVE: afebrile still has pain in his knees and back eating ok no bowel movement so far no sob or cough OBJECTIVE: Vital Signs-as noted below Exam: General-alert and oriented. Not in distress ENT-normal hearing Neck-no neck masses Lungs-cta b/l no wheezing or crackles Heart-s1 and s2 heard regular rate and rhythm, no murmurs Abdomen-soft bowel sounds present non tender no distension Extremities- right wound healing, no edema Neuro-alert and oriented moves extremities Lab data as noted below. ASSESSMENT & PLAN: SEPSIS Meets criteria for sepsis per 2001 definition and current CMS guidelines. Presented with WBC 21,240 with immature granulocytes. and Serum lactate 2.23. Hemodynamically stable. s/p i and d recently for right hand abscess Blood cultures obtained in ED and are negative so far Received broad-spectrum antibiotic coverage with intravenous piperacillin/ tazobactam and daptomycin in er. lactic acid normalized currently hemodynamically stable currently on iv vanco and zosyn MRI back unremarkable Ortho signed off for recent right hand infection as it is healing well await c diff studies -diarrhea improved to continue iv abx consulted ID fo guidance regarding abx for discharge AXILLARY ADENOPATHY Present during last admission. Most likely secondary to abscess right hand. Testing were done for r HIV, CMV IgM, EBV IgM, toxoplasma which were all negative. Follow-up imaging with CT of chest, abdomen, pelvis recommended if adenopathy does not resolve as out patient b/L knee pain no erythema o swelling seen will f/u xray VTE PROPHYLAXIS hep sub q ambulation DISPOSITION Anticipated discharge to home. Medical follow-up with [facility]. . Vital Signs: Date Time Temp Pulse Resp B/P (MAP) Pulse Ox O2 Delivery O2 Flow Rate FiO2 02/03/17 07:35 Room Air 02/03/17 07:32 36.7 75 16 102/63 (76) 95 Room Air 02/02/17 23:30 Room Air 02/02/17 22:58 36.7 75 16 113/72 (86) 95 Room Air 02/02/17 15:40 Room Air 02/02/17 15:25 36.8 75 18 115/71 (86) 95 Room Air
[2017-02-03] MEDS: OXYCODONE/ACETAMINOPHEN 5-325 TAB PO PRN (12:34)
--- NOTE | 2017-02-03 15:27 | DIAGNOSTIC IMAGING REPORT ---
RIGHT KNEE 3 VIEWS, LEFT KNEE 3 VIEWS HISTORY: 41 years-old Male b acute bilateral knee pain with sepsis. COMPARISON: None available TECHNIQUE: 3 views of the bilateral knees FINDINGS: RIGHT KNEE: Mild medial and patellofemoral joint space narrowing is present. There is no acute fracture, dislocation or erosive changes seen. There is a small joint effusion. No radiopaque foreign body. LEFT KNEE: Small joint effusion is present. No acute fracture, dislocation or erosive changes. There is minimal medial joint space narrowing. IMPRESSION: 1. No acute bony abnormality. 2. Small joint effusions are seen bilaterally. The above report was generated using voice recognition software. It may contain grammatical, syntax or spelling errors. Electronically signed by: Camron Gaines M.D. 02/03/2017 3:25 PM Dictated Date/Time: 02/03/2017 3:23 PM
[2017-02-03 15:37] VITALS: BP 102/57; PULSE 67; TEMP 36.7; O2SAT 98
[2017-02-03] MEDS: ACETAMINOPHEN 500 MG TAB PO PRN (19:53)
[2017-02-03 23:17] VITALS: BP 92/46; PULSE 65; TEMP 36.9; O2SAT 96
[2017-02-03 23:19] VITALS: BP 106/62
[2017-02-04] MEDS ORDERED: VANCOMYCIN TROUGH SCH (01:30)
[2017-02-04] MEDS: VANCOMYCIN INJ 1,000 MG in SODIUM CHLORIDE 0.9% 250ML 250 ML IV SCH ×3 (01:35→18:05)
[2017-02-04] MEDS: OXYCODONE/ACETAMINOPHEN 5-325 TAB PO PRN ×2 (01:41→08:26)
[2017-02-04] MEDS: PIPERACILL/TAZOBAC IV 4.5 GM in DEXTROSE 5% 100ML IV SCH ×3 (03:51→19:21)
[2017-02-04] MEDS: HYDROmorphone INJ 1 MG/ML SYR IV PRN ×5 (03:53→22:56)
[2017-02-04 05:57] LABS: BASO % 0.2 %; BASO ABS # 0.01 K/uL (0-0.2); COMPLETE YES; EOS % 7.1 %; IG% 0.5 %; LYMPH % 39.3 %; LYMPH ABS # 2.16 K/uL (1.2-3.4); MEAN CELL VOLUME 91.1 fL (80-100); MEAN CORPUSCULAR HEMOGLOBIN 30.8 pg (25-34); MEAN CORPUSCULAR HGB CONC 33.8 g/dl (32-36); MEAN PLATELET VOLUME 9.9 fL (7.4-10.4); MONO % 10.7 %; NEUT % 42.2 %; PLATELET COUNT 282 K/uL (130-400); RED BLOOD COUNT 4.28 M/uL (4.7-6.1); WHITE BLOOD COUNT 5.49 K/uL (4.8-10.8)
[2017-02-04 06:33] LABS: BUN/CREATININE RATIO 12.8 (10-20); CALCIUM 8.4 mg/dl (8.5-10.1); CREATININE 0.95 mg/dl (0.60-1.40); MAGNESIUM 2.2 mg/dl (1.8-2.4)
[2017-02-04 06:36] LABS: ALB/GLOB RATIO 0.8 (0.9-2)
[2017-02-04 07:42] VITALS: BP 90/52; PULSE 62; TEMP 36.8; O2SAT 98
[2017-02-04 08:02] VITALS: O2SAT 98
[2017-02-04] MEDS: HEPARIN SOD 5000 UNIT/0.5 ML CARP SQ SCH ×2 (08:26→20:33)
--- NOTE | 2017-02-04 09:11 | Pharmacy Progress Note ---
Pharmacy Abx Dose Progress Nt Date of Service Feb 04, 2017. Pharmacy Dosing Scope The patient is currently receiving the following antimicrobial agents per Pharmacy consult: Vancomycin 1000 mg IV every 10 hours Objective Height (Feet): 5 Height (Inches): 7.00 Weight (Kilograms): 71.100 Vital Signs (Past 12Hrs) Vital Signs Past 12 Hours Date Time Temp Pulse Resp B/P (MAP) Pulse Ox O2 Delivery O2 Flow Rate FiO2 02/04/17 08:02 98 Room Air 02/04/17 07:42 36.8 62 16 90/52 (65) 98 Room Air 02/03/17 23:19 106/62 (77) 02/03/17 23:17 36.9 65 16 92/46 (61) 96 Room Air 02/03/17 23:15 Room Air Lab Results (24Hrs) Laboratory Tests (24 Hours) Test 02/04/17 05:17 White Blood Count 5.49 K/uL (4.8-10.8) Red Blood Count 4.28 M/uL (4.7-6.1) L Hemoglobin 13.2 g/dL (14.0-18.0) L Hematocrit 39.0 % (42-52) L Mean Corpuscular Volume 91.1 fL (80-100) Mean Corpuscular Hemoglobin 30.8 pg (25-34) Mean Corpuscular Hemoglobin Concent 33.8 g/dl (32-36) Platelet Count 282 K/uL (130-400) Mean Platelet Volume 9.9 fL (7.4-10.4) Neutrophils (%) (Auto) 42.2 % Lymphocytes (%) (Auto) 39.3 % Monocytes (%) (Auto) 10.7 % Eosinophils (%) (Auto) 7.1 % Basophils (%) (Auto) 0.2 % Neutrophils # (Auto) 2.31 K/uL (1.4-6.5) Lymphocytes # (Auto) 2.16 K/uL (1.2-3.4) Monocytes # (Auto) 0.59 K/uL (0.11-0.59) Eosinophils # (Auto) 0.39 K/uL (0-0.5) Basophils # (Auto) 0.01 K/uL (0-0.2) Micro Results Date/Time Source Procedure Growth Status 02/01/17 10:14 Blood Blood Culture - Preliminary NO GROWTH TO DATE. Resulted 02/01/17 10:10 Blood Blood Culture - Preliminary NO GROWTH TO DATE. Resulted Risk Factors for Resistance * Hospitalization for 48 hours or more within the past 90 days * Antimicrobial use within the last 90 days- keflex Assessment & Plan Assessment 41 year old male receiving vancomycin for treatment of abscess/cellulits, sepsis Day # 3 of antimicrobial therapy ID has been consulted for recommendations. Plan Vancomycin IV * Trough level of 11.4 mcg/mL is subtherapeutic * Change to 1000 mg IV every 8 hours * Goal trough level : 15 to 20 mcg/mL * Trough scheduled for 09 on 02/05 Pharmacy will continue to follow and will adjust dose/frequency as necessary. Thank you.
[2017-02-04] MEDS ORDERED: NURSING VERBAL MED ORDER ONE (09:15)
[2017-02-04] MEDS ORDERED: OXYCODONE/ACETAMINOPHEN 5-325 TAB PO PRN (09:30)
--- NOTE | 2017-02-04 12:04 | Progress Note ---
Progress Note Date of Service Feb 04, 2017. Progress Note ID consult dictated #[id number] A/P: 1. Hand abscess -MSSA -Continue abx for now, if blood cultures negative will likely transition back to po keflex -will follow, thank you
[2017-02-04] MEDS ORDERED: POLYETHYLENE (MIRALAX) 17 GM PACK PO PRN (13:45)
--- NOTE | 2017-02-04 14:10 | INFECT. DISEASE CONSULTATION ---
DATE OF CONSULTATION: 02/04/2017 REQUESTING PHYSICIAN: Dr. Mendoza. HISTORY OF PRESENT ILLNESS: This is a 41-year-old gentleman who was recently admitted to the hospital from 01/17 to 01/23/2017. At that time, he was found to have an abscess of the right fifth digit. Cultures from that grew MSSA on 01/18/2017. He did undergo I&D at that time. He was on IV antibiotics initially and then was transitioned to oral Keflex. He states that he stopped this on the . Over the next day or two, he noticed worsening pain in the right hand and associated subjective fevers and chills. He was to follow up with orthopedics in the office on the ; however, he was brought to the Emergency Room and subsequently admitted to the hospital. He was placed back on vancomycin and Zosyn. He is tolerating these antibiotics well. His only complaint on my examination is of continued pain in the right hand and decreased range of motion and constipation. He did have an initial white blood cell count of 21,000, which has improved to 5. His sed rate was mildly elevated at 17. On arrival to the hospital he did have a fever of 38 degrees but has subsequently been afebrile. His blood cultures to date are negative. He denies any nausea or vomiting. He has no abdominal pain. His appetite is stable. He denies chest pain, cough or shortness of breath. He denies any drainage or bleeding from the hand. He is being followed by orthopedics as well. He initially did have back pain as well and lumbar MRI was obtained to rule out diskitis. This was a negative study. All remaining review of systems are reviewed and are unremarkable. He denies any past medical history. PAST SURGICAL HISTORY: Significant for tonsillectomy. FAMILY HISTORY: Noncontributory. SOCIAL HISTORY: Significant for daily tobacco use. ALLERGIES: ERYTHROMYCIN. CURRENT MEDICATIONS: Vancomycin, Percocet, subQ heparin, Zosyn, Dilaudid, Zofran and Tylenol. PHYSICAL EXAMINATION: VITAL SIGNS: He is afebrile, pulse 62, respiratory rate 16, blood pressure 90/52, oxygen saturation is 98% on room air. GENERAL: He is awake, alert and oriented x3. He is in no acute distress. HEENT: Mucous membranes are moist. Extraocular muscles are intact. HEART: Regular. LUNGS: Clear bilaterally. ABDOMEN: Soft, nontender, nondistended. There is no edema bilaterally. SKIN: Without rash. Examination of the right hand reveals an open wound over the MCP joint of the fifth digit on the right. There is associated fluctuance and tenderness. There is minimal warmth. NECK: There is no streaking. EXTREMITIES: There is no bleeding or drainage. LABORATORY STUDIES: CBC today reveals a white blood cell count of 5.4, hemoglobin 13.2, platelets 282, sed rate is mildly elevated at 17. Chemistry panel reveals a sodium of 142, potassium 4.0, chloride 108, bicarbonate 28, BUN 12, creatinine 0.5, glucose is 85. Urinalysis was unremarkable. Blood cultures are no growth to date x2 sets. Hand x-ray shows soft tissue edema and no osteomyelitis. Lumbar spine MRI was negative. Chest x-ray in ER was unremarkable. ASSESSMENT AND PLAN: Right hand abscess previously growing MSSA. He can remain on empiric antibiotics. If his blood cultures remain negative tomorrow he will likely be transitioned back to oral Keflex to complete a longer course. We will follow along with you. Thank you for this consultation.
--- NOTE | 2017-02-04 15:10 | Orthopedic Consultation ---
Orthopedic Consultation Date of Consultation: Feb 04, 2017. Attending Physician: David Porter MD Reason for Consultation: Questionable bilateral knee effusions. History of Present Illness Pleasant 41-year-old male who was admitted last or Saturday because of possible sepsis. Patient has been on vancomycin since that point in time we will consult today on Saturday to evaluate effusions bilateral knees in mild bilateral knee pain. I came to see the patient today and he was walking his room and working on his computer at the bedside. Patient currently really has no pain on all his knees has a little pain in his right shoulder. He has no fevers or chills that he tells me about. Patient has minimal pain when he is walking. Patient currently afebrile and vital signs are stable. Past Medical/Surgical History Medical Problems: (1) Axillary lymphadenopathy Status: Acute (2) Fever Status: Acute (3) Infection of right hand Status: Acute (4) Wound infection Status: Acute Family History Cancer Diabetes mellitus Heart disease Hypertension Lung disease Social History Smoking Status: Current Every Day Smoker Marital Status: Housing Status: lives with family Occupation Status: employed Allergies Coded Allergies: Erythromycin (Verified Adverse Reaction, Severe, GI UPSET & DIZZY, 02/01/17 ) Home Medications No Active Prescriptions or Reported Meds Current Inpatient Medications Current Inpatient Medications Medications (Trade) Dose Ordered Sig/Kamilah Route Start Time Stop Time Status Last Admin Dose Admin Ondansetron HCl (Zofran Inj) 4 mg Q6H PRN IV 02/01/17 12:45 03/03/17 12:44 Acetaminophen (Tylenol Tab) 1,000 mg Q8 PRN PO 02/01/17 12:45 03/03/17 12:44 02/03/17 19:53 1,000 MG Gadobutrol (Gadavist) 7 mmol UD PRN IV 02/01/17 16:00 02/05/17 15:59 Hydromorphone HCl (Dilaudid Inj) 1 mg Q3H PRN IV 02/01/17 23:30 02/15/17 23:29 02/04/17 12:36 1 MG Piperacillin Sod/ Tazobactam Sod 4.5 gm/Dextrose 120 ml @ 30 mls/hr Q8H IV 02/02/17 04:00 02/12/17 03:59 02/04/17 13:53 30 MLS/HR Piperacillin Sod/ Tazobactam Sod (Consult) 1 ea UD PRN N/A 02/01/17 23:45 03/03/17 23:44 Vancomycin HCl (Consult) 1 ea UD PRN N/A 02/02/17 03:45 03/04/17 03:44 Heparin Sodium (Porcine) (Heparin Sq 5000 Unit/0.5ml) 5,000 unit Q12 SQ 02/02/17 21:00 03/04/17 20:59 02/02/17 21:27 5,000 UNIT Vancomycin HCl 1000 mg/Sodium Chloride 270 ml @ 125 mls/hr Q8@0200,1000,1800 IV 02/04/17 10:00 02/12/17 09:59 02/04/17 10:42 125 MLS/HR Oxycodone/ Acetaminophen (Percocet 5-325mg Tab) `1-2 tabs for pain 1 tab ... Q4H PRN PO 02/04/17 09:30 02/18/17 09:29 02/04/17 09:34 1 TAB Polyethylene (Miralax Powder Packet) 17 gm DAILY PRN PO 02/04/17 13:45 03/06/17 13:44 Senna/Docusate Sodium (Senokot S Tab) 2 tab HS PO 02/04/17 21:00 03/06/17 20:59 Review of Systems Constitutional: No fever, No chills, No sweats, No weight loss, No weakness, No fatigue, No problem reported Physical Exam Date Time Temp Pulse Resp B/P (MAP) Pulse Ox O2 Delivery O2 Flow Rate FiO2 02/04/17 12:00 Room Air 02/04/17 08:02 98 Room Air 02/04/17 07:42 36.8 62 16 90/52 (65) 98 Room Air 02/04/17 07:35 Room Air 02/03/17 23:19 106/62 (77) 02/03/17 23:17 36.9 65 16 92/46 (61) 96 Room Air 02/03/17 23:15 Room Air 02/03/17 16:00 Room Air 02/03/17 15:37 36.7 67 18 102/57 (72) 98 Room Air General Appearance: WD/WN, no apparent distress Extremities/Musculoskelatal: normal inspection, no pedal edema, normal range of motion, non-tender, + pertinent finding (patient has little to miniscule amount of fluid in either knee. He has a wonderful range of motion of both knees. There is no erythema there is no increased warmth.) Laboratory Results Last 24 Hours Test 02/04/17 01:27 02/04/17 05:17 Vancomycin Level Trough 11.4 mcg/ml White Blood Count 5.49 K/uL Red Blood Count 4.28 M/uL Hemoglobin 13.2 g/dL Hematocrit 39.0 % Mean Corpuscular Volume 91.1 fL Mean Corpuscular Hemoglobin 30.8 pg Mean Corpuscular Hemoglobin Concent 33.8 g/dl Platelet Count 282 K/uL Mean Platelet Volume 9.9 fL Neutrophils (%) (Auto) 42.2 % Lymphocytes (%) (Auto) 39.3 % Monocytes (%) (Auto) 10.7 % Eosinophils (%) (Auto) 7.1 % Basophils (%) (Auto) 0.2 % Neutrophils # (Auto) 2.31 K/uL Lymphocytes # (Auto) 2.16 K/uL Monocytes # (Auto) 0.59 K/uL Eosinophils # (Auto) 0.39 K/uL Basophils # (Auto) 0.01 K/uL RDW Standard Deviation 45.7 fL RDW Coefficient of Variation 13.9 % Immature Granulocyte % (Auto) 0.5 % Immature Granulocyte # (Auto) 0.03 K/uL Sodium Level 142 mmol/L Potassium Level 4.0 mmol/L Chloride Level 107 mmol/L Carbon Dioxide Level 28 mmol/L Anion Gap 7.0 mmol/L Blood Urea Nitrogen 12 mg/dl Creatinine 0.95 mg/dl Est Creatinine Clear Calc Drug Dose 97.6 ml/min Estimated GFR () 116.4 Estimated GFR (Non- 100.4 BUN/Creatinine Ratio 12.8 Random Glucose 85 mg/dl Calcium Level 8.4 mg/dl Magnesium Level 2.2 mg/dl Total Bilirubin 0.2 mg/dl Aspartate Amino Transf (AST/SGOT) 18 U/L Alanine Aminotransferase (ALT/SGPT) 37 U/L Alkaline Phosphatase 48 U/L Total Protein 6.4 gm/dl Albumin 2.8 gm/dl Globulin 3.6 gm/dl Albumin/Globulin Ratio 0.8 Assessment & Plan Bilateral knee pain At this point, I see no evidence of any type of effusions nor any evidence of any infections in the knees at all. His x-rays are normal. Patient today has a completely normal examination of both knees. I recommend occasional anti- inflammatory medicine for his minor knee pain and ice. Thank for the consultation.
[2017-02-04 15:28] VITALS: BP 101/62; PULSE 61; TEMP 36.3; O2SAT 98
[2017-02-04 18:08] VITALS: BP 108/62; PULSE 69; TEMP 36.6; O2SAT 97
[2017-02-04] MEDS ORDERED: DOCUSATE SODIUM/SENNA 50/8.6MG TAB PO SCH (21:00)
[2017-02-04 23:05] VITALS: BP 121/72; PULSE 63; TEMP 36.5; O2SAT 97
[2017-02-05] MEDS: VANCOMYCIN INJ 1,000 MG in SODIUM CHLORIDE 0.9% 250ML 250 ML IV SCH ×2 (01:36→10:36)
[2017-02-05] MEDS: HYDROmorphone INJ 1 MG/ML SYR IV PRN ×5 (02:29→16:55)
[2017-02-05] MEDS: PIPERACILL/TAZOBAC IV 4.5 GM in DEXTROSE 5% 100ML IV SCH ×2 (04:01→12:47)
[2017-02-05 07:29] VITALS: BP 103/68; PULSE 59; TEMP 36.6; O2SAT 97
[2017-02-05] MEDS: HEPARIN SOD 5000 UNIT/0.5 ML CARP SQ SCH (09:00)
[2017-02-05] MEDS ORDERED: VANCOMYCIN TROUGH SCH (09:30)
[2017-02-05 10:20] LABS: CREATININE 1.2 mg/dl (0.60-1.40)
--- NOTE | 2017-02-05 10:49 | Pharmacy Progress Note ---
Pharmacy Antibiotic Prog Note Date of Service Feb 05, 2017. Subjective The patient is currently receiving vancomycin 1000 mg IV every 8 hours. The patient is currently on day # 4 IV therapy. Objective Height (Feet): 5 Height (Inches): 7.00 Weight (Kilograms): 71.100 Levels: Trough: 17.6 Lab Results (24hrs): Test 02/05/17 09:42 Creatinine 1.20 mg/dl (0.60-1.40) Est Creatinine Clear Calc Drug Dose 77.3 ml/min Estimated GFR () 87.8 Estimated GFR (Non- 75.7 Random Vancomycin Level 17.6 mcg/ml Micro Results: Date/Time Source Procedure Growth Status 02/01/17 10:14 Blood Blood Culture - Preliminary NO GROWTH TO DATE. Resulted 02/01/17 10:10 Blood Blood Culture - Preliminary NO GROWTH TO DATE. Resulted Assessment & Plan Assessment: * 41 yo male with hand abscess, previous cultures MSSA, completed 10 days of keflex * Trough level 17.6, drawn appropriately, therapeutic * Per ID note likely transition back to keflex for longer course Plan: * Continue current dose of 1000 mg q8H * Goal trough level estimate: between 15-20 mcg/mL. * Trough currently not ordered Pharmacy will continue to follow and will adjust dose/frequency as necessary. Thank you
[2017-02-05] MEDS ORDERED: LCTX PO ×2 (14:13→16:19)
[2017-02-05] MEDS ORDERED: OXYC-57 PO (14:13)
[2017-02-05] MEDS ORDERED: CEPH500C2 PO ×2 (14:13→16:19)
[2017-02-05] MEDS ORDERED: SENN8.6T7 PO (14:13)
--- NOTE | 2017-02-05 14:17 | Discharge Instructions ---
Discharge Instructions Date of Service Feb 05, 2017. Admission Reason for Admission: Sepsis Discharge Discharge Diagnosis / Problem: sepsis, mostly from hand infection Discharge Goals Goal(s): Decrease discomfort, Improve function Activity Recommendations Activity Limitations: resume your previous activity . Instructions / Follow-Up Instructions / Follow-Up FOLLOWUP WITH FAMILY DOCTOR DR.MANISHA FAGAN ON AT 10:45AM FOLLOWUP WITH ORTHOPEDICS DR.Christopher Pedro Vivas IN ONE WEEK ( [address] [facility], [place] [address] ). FOLLOWUP WITH INFECTIOUS DISEASE IN 2-3 WEEKS PRIOR TO COMPLETION OF ANTIBIOTICS.([address] [facility], [address], [place] [address] ) REFERRAL FORM FAMILY DOCTOR TO ORTHOPEDICS AND INFECTIOUS DISEASE. FOLLOWUP CT CHEST , ABDOMEN AND PELVIS RECOMMENDED IF AXILLARY LYMPHADENOPATHY NOT RESOLVED PER FAMILY DOCTOR. Current Hospital Diet Patient's current hospital diet: Low Fat Diet, Low Lactose Diet Discharge Diet Recommended Diet: AHA Diet (Heart Healthy), Low Lactose Diet Pending Studies Studies pending at discharge: no Medical Emergencies . Who to Call and When: Medical Emergencies: If at any time you feel your situation is an emergency, please call 911 immediately. . Non-Emergent Contact Non-Emergency issues call your: Primary Care Provider . . "Provider Documentation" section prepared by David Porter. . VTE Core Measure Inpt VTE Proph given/why not?: SCD's
--- NOTE | 2017-02-05 14:54 | Progress Note ---
Subjective Date of Service: Feb 05, 2017. Subjective Pt evaluation today including: conversation w/ patient, physical exam, chart review, lab review pt scheduled for d/c. states he has some fatigue and continues with pain in hand , improved. no f/c. tolerating abx. afebrile. denies drainage or bleeding. tolerating abx, no abd pain, no n/v/d. all remaining ros reviewed and are negative. Problem List Medical Problems: (1) Axillary lymphadenopathy Status: Acute (2) Fever Status: Acute (3) Infection of right hand Status: Acute (4) Wound infection Status: Acute Objective Vital Signs Date Time Temp Pulse Resp B/P (MAP) Pulse Ox O2 Delivery O2 Flow Rate FiO2 02/05/17 07:29 36.6 59 14 103/68 (80) 97 Room Air 02/05/17 07:15 Room Air 02/04/17 23:05 36.5 63 16 121/72 (88) 97 Room Air 02/04/17 21:45 Room Air 02/04/17 18:08 36.6 69 16 108/62 (77) 97 Room Air 02/04/17 15:28 36.3 61 16 101/62 (75) 98 Room Air Physical Exam General Appearance: WD/WN, no apparent distress Eyes: normal inspection, EOMI Neck: supple Respiratory/Chest: lungs clear, normal breath sounds, no respiratory distress Cardiovascular: regular rate, rhythm, no edema Abdomen: non tender, soft Extremities: non-tender Neurologic/Psychiatric: alert, oriented x 3 Skin: normal color Comments: hand with min induration, no drainage, less erythema, min tenderness, no warmth. unable to express drainage Laboratory Results Item Value Date Time Blood Culture - Preliminary Resulted 02/01/17 1010 Blood NO GROWTH TO DATE. Blood Culture - Preliminary Resulted 02/01/17 1014 Blood NO GROWTH TO DATE. Last 24 Hours Test 02/05/17 09:42 Creatinine 1.20 mg/dl Est Creatinine Clear Calc Drug Dose 77.3 ml/min Estimated GFR () 87.8 Estimated GFR (Non- 75.7 Random Vancomycin Level 17.6 mcg/ml Assessment and Plan (1) Cellulitis of hand, right Assessment & Plan: ok for d/c from ID standpoint, blood cultures remain negative, would give keflex x 21 days, can follow with ID prior to end of therapy to eval and determine if abx should be extended. (2) Wound infection
[2017-02-05 14:58] VITALS: BP 99/66; PULSE 59; TEMP 36.7; O2SAT 98
--- NOTE | 2017-02-05 16:33 | Progress Note ---
Internal Med Progress Note Date of Service: Feb 05, 2017. Provider Documentation: SUBJECTIVE: somewhat sleepy but later woke up complains of pain in his back afebrile no diarrhea ok for discharge OBJECTIVE: Vital Signs-as noted below Exam: General-alert and oriented. Not in distress ENT-normal hearing Neck-no neck masses Lungs-cta b/l no wheezing or crackles Heart-s1 and s2 heard regular rate and rhythm, no murmurs Abdomen-soft bowel sounds present non tender no distension Extremities- right wound healing, no edema Neuro-alert and oriented moves extremities Lab data as noted below. ASSESSMENT & PLAN: SEPSIS Meets criteria for sepsis per 2001 definition and current CMS guidelines. Presented with WBC 21,240 with immature granulocytes. and Serum lactate 2.23. Hemodynamically stable. s/p i and d recently for right hand abscess Blood cultures obtained in ED and are negative so far Received broad-spectrum antibiotic coverage with intravenous piperacillin/ tazobactam and daptomycin in er. lactic acid normalized currently hemodynamically stable currently on iv vanco and zosyn MRI back unremarkable Ortho signed off for recent right hand infection as it is healing well await c diff studies -diarrhea improved to continue iv abx consulted ID fo guidance regarding abx for discharge ID recommends Keflex for 21 days and follow with them prior to stopping abx AXILLARY ADENOPATHY Present during last admission. Most likely secondary to abscess right hand. Testing were done for r HIV, CMV IgM, EBV IgM, toxoplasma which were all negative. Follow-up imaging with CT of chest, abdomen, pelvis recommended if adenopathy does not resolve as out patient f/u with pcp b/L knee pain no erythema o swelling seen seen by ortho and recommends anti inflammatories as needed. discharged home to f/u with PCP, orthopedics (HAND SURGERY) AND ID.. Vital Signs: Date Time Temp Pulse Resp B/P (MAP) Pulse Ox O2 Delivery O2 Flow Rate FiO2 02/05/17 14:58 36.7 59 16 99/66 (77) 98 Room Air 02/05/17 07:29 36.6 59 14 103/68 (80) 97 Room Air 02/05/17 07:15 Room Air 02/04/17 23:05 36.5 63 16 121/72 (88) 97 Room Air 02/04/17 21:45 Room Air 02/04/17 18:08 36.6 69 16 108/62 (77) 97 Room Air Lab Results: Results Past 24 Hours Test 02/05/17 09:42 Range/Units Creatinine 1.20 0.60-1.40 mg/dl Est Creatinine Clear Calc Drug Dose 77.3 ml/min Estimated GFR () 87.8 Estimated GFR (Non- 75.7 Random Vancomycin Level 17.6 mcg/ml
[2017-02-05 17:09] VITALS: BP 99/66; PULSE 59; TEMP 36.7; O2SAT 98
--- NOTE | 2017-02-05 18:50 | Discharge Summary ---
Discharge Summary Date of Service Feb 05, 2017. Discharge Summary Admission Date: Feb 01, 2017 at 12:42 Discharge Date: Feb 05, 2017 Discharge Disposition: Home Principal Diagnosis: SEPSIS RIGHT HAND INFECTION Procedures: RT HAND XRAY: 1. No acute fractures within the right hand. 2. Slight improvement in the focal soft tissue swelling within the ulnar side of the hand. MRI LUMBAR SPINE:No convincing evidence of discitis osteomyelitis. Minimal degenerative change at L4-5 as above. CXR; No acute cardiopulmonary findings LT KNEE XRAY: 1. No acute bony abnormality. 2. Small joint effusions are seen bilaterally. RT KNEE XRAY:1. No acute bony abnormality. 2. Small joint effusions are seen bilaterally. Consultations: ORTHOPEDICS ID Medication Reconciliation New Medications: Cephalexin Monohydrate (Keflex) 500 Mg Cap 500 MG PO QID for 21 Days, #84 CAP Lactobacillus Acidophilus (Lactinex) Tab 2 TAB PO TID for 25 Days, TAB Oxycodone/Acetaminophen 5MG/325MG (Percocet 5MG/325MG) Tab 1 TAB PO Q6 PRN for Pain, #14 TAB PAIN Sennosides-Docusate Sodium (Senokot S) 1 Tab Tab 2 TAB PO HS PRN for Constipation, #30 TAB Admission Information HPI (per Admitting provider): 41-year-old male followed by [facility]. Hospitalized at [facility] 01/17/17 through 01/23/17 with an abscess involving the dorsum of the right hand with associated cellulitis of the hand and forearm and extensive axillary lymphadenopathy. Incision and drainage of the abscess performed by Dr. Vivas on 01/18/17. Cultures grew Staphylococcus aureus, methicillin sensitive. Initially treated with intravenous vancomycin and piperacillin, transition to IV cefazolin, and discharged to home on cephalexin to complete a ten-day course of therapy. Patient took cephalexin as prescribed. Arrangements were made for follow-up with Orthopedics, appointment pending. A few days ago patient started experiencing fever and chills. Minimal brown drainage from right hand incision. Overall, the hand feels much better than before. Started having diarrhea a few days ago, very loose without apparent melena or hematochezia. Worsening fever and chills, malaise, myalgias over past 1-2 days. Experiencing low back pain. Tried ibuprofen for pain without much relief. . Physical Exam (per Admitting): General Appearance: + moderate distress Head: normocephalic, atraumatic Eyes: PERRL, EOMI, sclerae normal ENT: hearing grossly normal Neck: supple, no adenopathy, thyroid normal, trachea midline Respiratory/Chest: lungs clear, no respiratory distress, no accessory muscle use Cardiovascular: regular rate, rhythm, no edema, no gallop, no JVD, no murmur Abdomen/GI: normal bowel sounds, non tender, soft, no organomegaly, no pulsatile mass Extremities/Musculoskelatal: no calf tenderness, + pertinent finding ( moderate swelling of dorsum right hand without erythema, warmth, tenderness; 1 cm incision without drainage) Neurologic/Psych: alert, normal mood/affect, oriented x 3 Skin: normal color, warm/dry Lymphatic: + axillary node abnormality (bilateral axillary adenopathy, improved compared to last admission) Hospital Course SEPSIS Meets criteria for sepsis per 2001 definition and current CMS guidelines. Presented with WBC 21,240 with immature granulocytes. and Serum lactate 2.23. Hemodynamically stable. s/p i and d recently for right hand abscess Blood cultures obtained in ED and are negative so far Received broad-spectrum antibiotic coverage with intravenous piperacillin/ tazobactam and daptomycin in er. lactic acid normalized currently hemodynamically stable currently on iv vanco and zosyn MRI back unremarkable Ortho signed off for recent right hand infection as it is healing well await c diff studies -diarrhea improved to continue iv abx consulted ID fo guidance regarding abx for discharge ID recommends Keflex for 21 days and follow with them prior to stopping abx AXILLARY ADENOPATHY Present during last admission. Most likely secondary to abscess right hand. Testing were done for r HIV, CMV IgM, EBV IgM, toxoplasma which were all negative. Follow-up imaging with CT of chest, abdomen, pelvis recommended if adenopathy does not resolve as out patient f/u with pcp b/L knee pain no erythema o swelling seen seen by ortho and recommends anti inflammatories as needed. discharged home to f/u with PCP, orthopedics (HAND SURGERY) AND ID.. Total time spent on discharge = 35MINUTES This includes examination of the patient, discharge planning, medication reconciliation, and communication with other providers. Discharge Instructions Discharge Instructions Date of Service Feb 05, 2017. Admission Reason for Admission: Sepsis Discharge Discharge Diagnosis / Problem: sepsis, mostly from hand infection Discharge Goals Goal(s): Decrease discomfort, Improve function Activity Recommendations Activity Limitations: resume your previous activity . Instructions / Follow-Up Instructions / Follow-Up FOLLOWUP WITH FAMILY DOCTOR DR.MANISHA FAGAN ON AT 10:45AM FOLLOWUP WITH ORTHOPEDICS DR.Christopher Pedro Vivas IN ONE WEEK ( [address] [place] [address] ). FOLLOWUP WITH INFECTIOUS DISEASE IN 2-3 WEEKS PRIOR TO COMPLETION OF ANTIBIOTICS.([address], [address], [place] [address] ) REFERRAL FORM FAMILY DOCTOR TO ORTHOPEDICS AND INFECTIOUS DISEASE. FOLLOWUP CT CHEST , ABDOMEN AND PELVIS RECOMMENDED IF AXILLARY LYMPHADENOPATHY NOT RESOLVED PER FAMILY DOCTOR. Current Hospital Diet Patient's current hospital diet: Low Fat Diet, Low Lactose Diet Discharge Diet Recommended Diet: AHA Diet (Heart Healthy), Low Lactose Diet Pending Studies Studies pending at discharge: no Medical Emergencies . Who to Call and When: Medical Emergencies: If at any time you feel your situation is an emergency, please call 911 immediately. . Non-Emergent Contact Non-Emergency issues call your: Primary Care Provider . . "Provider Documentation" section prepared by David Porter. . VTE Core Measure Inpt VTE Proph given/why not?: SCD's
[2017-02-22] MEDS ORDERED: MDR4 PO (14:25)
[2017-02-22] MEDS ORDERED: NPR250 PO (14:25)
[2017-02-22] MEDS ORDERED: [UNRECOGNIZED DRUG - CODE] EXT (14:25)
[2017-02-22] MEDS ORDERED: LRS10 PO (14:25)
[2017-02-22] MEDS ORDERED: ACET-1047 PO (14:25)
== END 2017-02-05 17:50 | disposition home or self-care (01) | DRG 872 ==
LOC: C.EDB 09:35 → C.MSW 12:42 → ENRESERV 13:18
PROVIDERS: ADMIT Hospitalist; ATTEND Internal Medicine
DX: A41.9 Sepsis, unspecified organism (principal); L02.511 Cutaneous abscess of right hand; L03.113 Cellulitis of right upper limb; B95.61 Methicillin susceptible Staphylococcus aureus infection as the cause of diseases classified elsewhere; R19.7 Diarrhea, unspecified; M25.562 Pain in left knee; M25.561 Pain in right knee; R59.0 Localized enlarged lymph nodes; F17.200 Nicotine dependence, unspecified, uncomplicated; Z98.890 Other specified postprocedural states

== ENCOUNTER 2017-02-15 09:05 | Inpatient (IN) | payer OTHER ==
[~2017-02-15] VITALS: Ht 170.2 cm; Wt 70.8 kg
[~2017-02-15 09:05] MED LIST changes: +CEPH500C2 PO; -IBUP-1050 PO; -KFL500 PO; +LCTX PO; +OXYC-57 PO; +SENN8.6T7 PO
[2017-02-15] MEDS ORDERED: SODIUM CHLORIDE 0.9% 1000ML 1,000 ML IV STA ×2 (09:40→14:33)
[2017-02-15] MEDS ORDERED: KETOROLAC TROMETHAMINE 30 MG/ML VIAL IV STA (09:40)
--- NOTE | 2017-02-15 09:47 | EMERGENCY ROOM VISIT NOTE ---
History Report prepared by Jamisonibe: Amy Dias Under the Supervision of: Dr. Manuel Thorpe M.D. First contact with patient: 09:35 Chief Complaint: BACK PAIN Stated Complaint: BACK PAIN,WEAK,DIARRHEA History of Present Illness The patient is a 41 year old male who presents to the Emergency Room with complaints of constant burning lower back pain. The patient had a right hand abscess removed on January 18 and was put on vancomycin. The patient came to the ED a couple days after his surgery and was diagnosed with sepsis and was put on Keflex. He states that his symptoms feel the same as they did when he had sepsis. The patient notes burning with urinating, diarrhea, nausea, weakness , body aches, and knee pain. He denies any vomiting or blood in urine. The patient notes that last time he was in the ED he had some ticks on him. The patient take probiotics and a stool softener when needed. Source of History: patient Position: back (lower) Quality: burning Timing: constant Associated Symptoms: + nausea, + diarrhea, + urinary symptoms, + weakness, No vomiting Note: Pt. notes knee pain and body aches. Review of Systems See HPI for pertinent positives and negatives. A total of ten systems were reviewed and were otherwise negative. Past Medical & Surgical Medical Problems: (1) No significant past medical history Surgical Problems: (1) Hx of tonsillectomy Family History Cancer Diabetes mellitus Heart disease Hypertension Lung disease Social History Smoking Status: Former Smoker Alcohol Use: none Marital Status: Housing Status: lives with family Occupation Status: employed Current/Historical Medications Scheduled Cephalexin Monohydrate (Keflex), 500 MG PO QID Probiotic Product (Probiotic), 1 CAP PO DAILY Allergies Coded Allergies: Shellfish (Unverified Allergy, Unknown, HIVES, 02/15/17) Erythromycin (Verified Adverse Reaction, Severe, GI UPSET & DIZZY, 02/15/17) Physical Exam Vital Signs Date Time Temp Pulse Resp B/P (MAP) Pulse Ox O2 Delivery O2 Flow Rate FiO2 02/15/17 18:53 64 20 116/88 95 02/15/17 17:08 68 20 129/79 97 Room Air 02/15/17 15:44 68 18 128/83 99 Room Air 02/15/17 14:51 73 20 122/74 98 Room Air 02/15/17 13:44 76 02/15/17 13:23 68 18 127/80 98 Room Air 02/15/17 12:48 63 18 128/80 97 Room Air 02/15/17 11:24 59 02/15/17 11:15 60 16 126/61 97 Room Air 02/15/17 11:15 97 Room Air 02/15/17 09:14 36.8 67 18 115/77 97 Room Air Physical Exam GENERAL: Awake, alert,uncomfortable, in no distress HENT: Normocephalic, atraumatic. Oropharynx unremarkable. Dry MM. EYES: Normal conjunctiva. Sclera non-icteric. NECK: Supple. No nuchal rigidity. FROM. No JVD. RESPIRATORY: Clear to auscultation. BACK: Diffuse T and L spinal and paraspinal tenderness. CARDIAC: Regular rate, normal rhythm. Extremities warm and well perfused. Pulses equal. ABDOMEN: Soft, non-distended. Mild tenderness no peritoneal signs. No rebound or guarding. No masses. RECTAL: Deferred. MUSCULOSKELETAL: Chest examination reveals no tenderness. The back is symmetrical on inspection without obvious abnormality. There is no CVA tenderness to palpation. No joint edema. LOWER EXTREMITIES: Calves are equal size bilaterally and non-tender. No edema. No discoloration. NEURO: Normal sensorium. No sensory or motor deficits noted. SKIN: No rash or jaundice noted. Medical Decision & Procedures ER Provider Diagnostic Interpretation: Radiology results as stated below per my review and radiologist interpretation: CHEST ONE VIEW PORTABLE FINDINGS: Cardiomediastinal and hilar silhouettes are within normal limits. There is no pneumothorax, pleural effusion or focal airspace consolidation. No overt pulmonary edema. Mild right degenerative changes of the acromioclavicular joint are seen. The bones are grossly intact. IMPRESSION: No acute cardiopulmonary process. The above report was generated using voice recognition software. It may contain grammatical, syntax or spelling errors. Electronically signed by: Camron Gaines M.D. CT OF THE ABDOMEN AND PELVIS WITH CONTRAST FINDINGS: The liver, spleen, adrenal glands, kidneys and pancreas are normal. There is no hydronephrosis or hydroureter. No urinary calculi are identified. No perinephric infiltration is present. Both nephrograms are symmetric. The caliber and wall thickness of small and large bowel are normal. The appendix is normal. There is no free fluid or lymphadenopathy. No abscess is identified. No suspicious skeletal lesions are identified. Major vasculature of the abdomen and pelvis is patent. IMPRESSION: No acute process within the abdomen or pelvis. Electronically signed by: Sammy Sparks M.D. LUMBAR SPINE MRI WITH AND WITHOUT CONTRAST FINDINGS: For the purpose of the report the L5-S1 disc space will be located on axial image 27 of 30. No fracture or subluxation. Disc spaces are preserved. Mild disc desiccation at L1-L2, L3-L4, and L4-L5. The conus terminates at the L1 level. Paraspinal soft tissues are unremarkable. No abnormal enhancement. No erosions to suggest a discitis/osteomyelitis. A few small Schmorl's nodes seen within the lumbar spine. No epidural fluid collections to suggest an abscess. L1-L2: No significant central canal or neural foraminal narrowing. L2-L3: No significant central canal or neural foraminal narrowing. L3-L4: No significant central canal or neural foraminal narrowing. L4-L5: Small broad-based posterior disc bulge with a focal central annular tear. No significant central canal or neural foraminal narrowing. L5-S1: No significant central canal or neural foraminal narrowing. IMPRESSION: 1. No evidence for an epidural abscess. 2. Small broad-based posterior disc bulge with a focal central annular tear at L4-L5. This does not result significant central canal or neural foraminal narrowing. Electronically signed by: Herb Mclain M.D. Laboratory Results Test 02/15/17 10:25 02/15/17 10:55 02/15/17 11:01 Urine Color YELLOW Urine Appearance CLEAR (CLEAR) Urine pH 5.0 (4.5-7.5) Urine Specific Lowry 1.020 (1.000-1.030) Urine Protein NEG (NEG) Urine Glucose (UA) NEG (NEG) Urine Ketones NEG (NEG) Urine Occult Blood NEG (NEG) Urine Nitrite NEG (NEG) Urine Bilirubin NEG (NEG) Urine Urobilinogen NEG (NEG) Urine Leukocyte Esterase NEG (NEG) Immature Granulocyte % (Auto) 0.4 % White Blood Count 10.54 K/uL (4.8-10.8) Red Blood Count 4.67 M/uL (4.7-6.1) Hemoglobin 14.0 g/dL (14.0-18.0) Hematocrit 42.9 % (42-52) Mean Corpuscular Volume 91.9 fL (80-100) Mean Corpuscular Hemoglobin 30.0 pg (25-34) Mean Corpuscular Hemoglobin Concent 32.6 g/dl (32-36) Platelet Count 288 K/uL (130-400) Mean Platelet Volume 9.7 fL (7.4-10.4) Neutrophils (%) (Auto) 69.7 % Lymphocytes (%) (Auto) 24.5 % Monocytes (%) (Auto) 3.7 % Eosinophils (%) (Auto) 1.6 % Basophils (%) (Auto) 0.1 % Neutrophils # (Auto) 7.35 K/uL (1.4-6.5) Lymphocytes # (Auto) 2.58 K/uL (1.2-3.4) Monocytes # (Auto) 0.39 K/uL (0.11-0.59) Eosinophils # (Auto) 0.17 K/uL (0-0.5) Basophils # (Auto) 0.01 K/uL (0-0.2) Immature Granulocyte # (Auto) 0.04 K/uL (0.00-0.02) Erythrocyte Sedimentation Rate 6 mm/hr (0-14) Prothrombin Time 9.9 SECONDS (9.0-12.0) Prothromb Time International Ratio 0.9 (0.9-1.1) Total Bilirubin 0.3 mg/dl (0.2-1) Direct Bilirubin < 0.1 mg/dl (0-0.2) Aspartate Amino Transf (AST/SGOT) 18 U/L (15-37) Alanine Aminotransferase (ALT/SGPT) 33 U/L (12-78) Alkaline Phosphatase 58 U/L (45-117) C-Reactive Protein < 0.29 mg/dl (0-0.29) Total Protein 7.2 gm/dl (6.4-8.2) Albumin 3.5 gm/dl (3.4-5.0) Lipase 160 U/L (73-393) Lyme Disease IgG Antibody NEG (NEG) Lyme Disease IgM Antibody NEG (NEG) Lactic Acid Level 1.1 mmol/L (0.4-2.0) Laboratory results reviewed by me Medications Administered Medications (Trade) Dose Ordered Sig/Kamilah Route Start Time Stop Time Status Last Admin Dose Admin Sodium Chloride 1,000 ml @ 999 mls/hr Q1H1M STAT IV 02/15/17 09:40 02/15/17 10:40 DC 02/15/17 11:12 999 MLS/HR Ketorolac Tromethamine (Toradol Inj) 30 mg NOW STAT IV 02/15/17 09:40 02/15/17 09:49 DC 02/15/17 11:12 30 MG Fentanyl Citrate (Fentanyl Inj) 50 mcg NOW STAT IV 02/15/17 12:39 02/15/17 12:40 DC 02/15/17 12:48 50 MCG Sodium Chloride 1,000 ml @ 999 mls/hr Q1H1M STAT IV 02/15/17 14:33 02/15/17 15:33 DC 02/15/17 14:49 999 MLS/HR Morphine Sulfate (MoRPHine SULFATE INJ) 4 mg NOW STAT IV 02/15/17 14:33 02/15/17 14:34 DC 02/15/17 14:51 4 MG Morphine Sulfate (MoRPHine SULFATE INJ) 4 mg NOW STAT IV 02/15/17 15:46 02/15/17 15:48 DC 02/15/17 15:53 4 MG ED Course 0936: The patient was evaluated in room B6. A complete history and physical exam was performed. 0940: Toradol Inj 30 mg IV, Sodium Chloride 1000 ml @ 999 mls/hr IV. 1000: Ioversol 100 ml IV. 1239: Fentanyl Inj 50 mcg IV. 1405: I reevaluated the patient and updated him with his test results. 1433: Morphine Sulfate 4 mg IV, Sodium Chloride 1000 ml @ 999 mls/hr IV. 1546: Morphine Sulfate 4 mg IV. 1645: Gadobutrol 7 mmol IV. 1742: I reevaluated the patient he is resting comfortably. 1826: Discussed the patient's case Mali Garza. The patient will be evaluated for further treatment and disposition. Medical Decision I reviewed the patient's past medical history, medications, and the nursing notes as described above. Differential diagnosis: sepsis, UTI, pyelonephritis, pneumonia bacteremia, renal stone, transverse myelitis, or epidural abscess. The patient is a 41-year-old gentleman with a past medical history of recent admission for right hand abscess and subsequent complication of sepsis as well as chronic back pain history of present illness. On arrival the patient appears uncomfortable, body aches, and feverishness and chills. However, the patient is afebrile with stable vital signs. Labs unremarkable including WBC, activity, ESR within normal limits. UA negative. CT abdomen and pelvis unremarkable. MRI with and without contrast of the L-spine negative for epidural abscess or signs of myelitis otherwise. There is minor disc bulge in the lower L-spine with annulus tear but no significant narrowing of the canal. Patient was reassessed and despite narcotic pain medication still reports dysphagia low back pain and body aches. Given the patient's significant pain with inability to function and his recent admissions for sepsis in the setting of a known abscess it is reasonable to admit the patient for pain control as well as monitoring for development of any further infectious symptoms or objective findings. Considering there have been no objective findings at this point we will defer antibiotics are now. Case was discussed with Mali mar of the [facility] group will assess the patient for likely admission. Medication Reconcilliation Current Medication List: was personally reviewed by me Blood Pressure Screening Patient's blood pressure: Normal blood pressure Consults Time Called: 175 Consulting Physician: Mali Garza Returned Call: [phone] Discussed the patient's case. The patient will be evaluated for further treatment and disposition. Impression Primary Impression: Low back pain Scribe Attestation The scribe's documentation has been prepared under my direction and personally reviewed by me in its entirety. I confirm that the note above accurately reflects all work, treatment, procedures, and medical decision making performed by me. Departure Information Dispostion Being Evaluated By Hospitalist Referrals No Doctor, Assigned (PCP) Patient Instructions My [facility]
[2017-02-15] MEDS ORDERED: OPTIRAY 320 IV PRN (10:00)
--- NOTE | 2017-02-15 10:16 | DIAGNOSTIC IMAGING REPORT ---
CHEST ONE VIEW PORTABLE HISTORY: 41 years-old Male CHEST PAIN acute atypical chest pain with diarrhea. COMPARISON: Portable chest radiograph 02/01/2017 TECHNIQUE: Portable upright AP view of the chest FINDINGS: Cardiomediastinal and hilar silhouettes are within normal limits. There is no pneumothorax, pleural effusion or focal airspace consolidation. No overt pulmonary edema. Mild right degenerative changes of the acromioclavicular joint are seen. The bones are grossly intact. IMPRESSION: No acute cardiopulmonary process. The above report was generated using voice recognition software. It may contain grammatical, syntax or spelling errors. Electronically signed by: Camron Gaines M.D. 02/15/2017 10:15 AM Dictated Date/Time: 02/15/2017 10:14 AM
[2017-02-15 10:40] LABS: URINE APPEARANCE CLEAR (CLEAR); URINE BILIRUBIN NEG (NEG); URINE COLOR YELLOW; URINE NITRITE NEG (NEG); UROBILINOGEN NEG (NEG); ZZUR CULT IF INDIC CLEAN CATCH NO
[2017-02-15 10:44] LABS: MANUAL MICROSCOPIC REQUIRED? NO; REVIEW REQ? NO
[2017-02-15 11:23] LABS: BASO % 0.1 %; BASO ABS # 0.01 K/uL (0-0.2); COMPLETE YES; EOS % 1.6 %; HEMATOCRIT 42.9 % (42-52); IG% 0.4 %; LYMPH % 24.5 %; LYMPH ABS # 2.58 K/uL (1.2-3.4); MEAN CELL VOLUME 91.9 fL (80-100); MEAN CORPUSCULAR HGB CONC 32.6 g/dl (32-36); MEAN PLATELET VOLUME 9.7 fL (7.4-10.4); MONO % 3.7 %; NEUT % 69.7 %; PLATELET COUNT 288 K/uL (130-400); RED BLOOD COUNT 4.67 M/uL (4.7-6.1); WHITE BLOOD COUNT 10.54 K/uL (4.8-10.8)
[2017-02-15 11:45] LABS: ALT/SGPT 33 U/L (12-78); BLOOD UREA NITROGEN 11 mg/dl (7-18); BUN/CREATININE RATIO 11.5 (10-20); C-REACTIVE PROTEIN < 0.29 mg/dl (0-0.29); CALCIUM 9.4 mg/dl (8.5-10.1); CARBON DIOXIDE 27 mmol/L (21-32); CHLORIDE 109 mmol/L (98-107); CREATININE 0.91 mg/dl (0.60-1.40); GLUCOSE 88 mg/dl (70-99); POTASSIUM 3.9 mmol/L (3.5-5.1); SODIUM 140 mmol/L (136-145)
[2017-02-15 11:49] LABS: ALKALINE PHOSPHATASE 58 U/L (45-117); AST/SGOT 18 U/L (15-37)
[2017-02-15 12:22] LABS: LYME DISEASE AB IGG NEG (NEG); LYME DISEASE AB IGM NEG (NEG)
[2017-02-15] MEDS ORDERED: FENTANYL CITRATE INJ 50 MCG/1 ML 2 ML VIAL IV STA (12:39)
--- NOTE | 2017-02-15 13:27 | DIAGNOSTIC IMAGING REPORT ---
CT OF THE ABDOMEN AND PELVIS WITH CONTRAST CLINICAL HISTORY: Bilateral flank pain, weakness and diarrhea. COMPARISON STUDY: None. TECHNIQUE: Following IV administration of 94 mL of Optiray-320, axial images of the abdomen and pelvis were obtained from the lung bases to the proximal femurs. Images were reviewed in the axial, sagittal, and coronal planes. IV contrast was administered without complication. A dose lowering technique was utilized adhering to the principles of ALARA. CT DOSE: 415.03 mGycm FINDINGS: The liver, spleen, adrenal glands, kidneys and pancreas are normal. There is no hydronephrosis or hydroureter. No urinary calculi are identified. No perinephric infiltration is present. Both nephrograms are symmetric. The caliber and wall thickness of small and large bowel are normal. The appendix is normal. There is no free fluid or lymphadenopathy. No abscess is identified. No suspicious skeletal lesions are identified. Major vasculature of the abdomen and pelvis is patent. IMPRESSION: No acute process within the abdomen or pelvis. Electronically signed by: Sammy Sparks M.D. 02/15/2017 1:26 PM Dictated Date/Time: 02/15/2017 1:20 PM
[2017-02-15] MEDS ORDERED: MoRPHine SULFATE 4 MG/ML 1 ML CARP\\VIAL IV STA ×2 (14:33→15:46)
[2017-02-15] MEDS ORDERED: GADAVIST IV PRN (16:45)
--- NOTE | 2017-02-15 17:03 | DIAGNOSTIC IMAGING REPORT ---
LUMBAR SPINE MRI WITH AND WITHOUT CONTRAST HISTORY: lumbar pain - r/o epidural abscess and transverse myelitis TECHNIQUE: Multiplanar multisequence MRI of the lumbar spine was performed both before and after the intravenous administration of contrast. COMPARISON: None. FINDINGS: For the purpose of the report the L5-S1 disc space will be located on axial image 27 of 30. No fracture or subluxation. Disc spaces are preserved. Mild disc desiccation at L1-L2, L3-L4, and L4-L5. The conus terminates at the L1 level. Paraspinal soft tissues are unremarkable. No abnormal enhancement. No erosions to suggest a discitis/osteomyelitis. A few small Schmorl's nodes seen within the lumbar spine. No epidural fluid collections to suggest an abscess. L1-L2: No significant central canal or neural foraminal narrowing. L2-L3: No significant central canal or neural foraminal narrowing. L3-L4: No significant central canal or neural foraminal narrowing. L4-L5: Small broad-based posterior disc bulge with a focal central annular tear. No significant central canal or neural foraminal narrowing. L5-S1: No significant central canal or neural foraminal narrowing. IMPRESSION: 1. No evidence for an epidural abscess. 2. Small broad-based posterior disc bulge with a focal central annular tear at L4-L5. This does not result significant central canal or neural foraminal narrowing. Electronically signed by: Herb Mclain M.D. 02/15/2017 5:02 PM Dictated Date/Time: 02/15/2017 4:53 PM
[2017-02-15] MEDS ORDERED: MISCCAP80 PO (19:25)
[2017-02-15] MEDS ORDERED: ACETAMINOPHEN 325 MG TAB PO PRN (19:30)
[2017-02-15] MEDS ORDERED: ONDANSETRON INJ 2 MG/ML 2 ML VIAL IV PRN (19:30)
--- NOTE | 2017-02-15 20:38 | History and Physical ---
History & Physical Date & Time of Service: Feb 15, 2017 ~ 19:00 Chief Complaint: Back Pain Primary Care Physician: No Doctor, Assigned History of Present Illness 41 year old male who presents to the ED with back pain. Patient has had two recent admissions to [facility]. Initial was admitted 01/17 - 01/23 for right hand abscess and cellulitis. he underwent I/D. Cultures grew MSSA. Patient was discharged on cephalexin to complete a 10 day course. Patient was readmitted - 02/05 for sepsis likely due to persistent right hand infection. He was evaluated by ID who advised a 21 day course of cephalexin. Patient reports persistent low back pain since the right hand infection developed. Pain is also radiating into the left buttock and down the left leg. He denies any numbness or tingling to the LE. No bowel or bladder dysfunction. He denies fever and chills. He reports persistent diarrhea over the past one month as well. He denies BRBPR or dark tarry stools. He denies abdominal pain, nausea, or vomiting. He reports his right hand is healing well. No chest pain or shortness of breath. He denies lightheadedness, dizziness, diaphoresis, or syncopal events. No urinary symptoms. In the ED, patient's work up is unremarkable - labs , CT abd/pelvis, lumbar spine MRI. Patient continues to have persistent back pain despite Morphine 4mg IV x 2 and Fentanyl 50mcg. Past Medical/Surgical History Medical Problems: (1) No significant past medical history Status: Chronic Surgical Problems: (1) Hx of tonsillectomy Status: Resolved Family History Cancer Diabetes mellitus Heart disease Hypertension Lung disease Social History Smoking Status: Current Every Day Smoker Alcohol Use: none Allergies Coded Allergies: Shellfish (Unverified Allergy, Unknown, HIVES, 02/15/17) Erythromycin (Verified Adverse Reaction, Severe, GI UPSET & DIZZY, 02/15/17) Home Medications Scheduled Cephalexin Monohydrate (Keflex), 500 MG PO QID Probiotic Product (Probiotic), 1 CAP PO DAILY Review of Systems ROS per HPI, all other systems reviewed and negative Physical Exam Vital Signs Date Time Temp Pulse Resp B/P (MAP) Pulse Ox O2 Delivery O2 Flow Rate FiO2 02/15/17 19:52 66 20 140/86 98 Nasal Cannula 4.0 02/15/17 18:53 64 20 116/88 95 02/15/17 17:08 68 20 129/79 97 Room Air 02/15/17 15:44 68 18 128/83 99 Room Air 02/15/17 14:51 73 20 122/74 98 Room Air 02/15/17 13:44 76 02/15/17 13:23 68 18 127/80 98 Room Air 02/15/17 12:48 63 18 128/80 97 Room Air 02/15/17 11:24 59 02/15/17 11:15 60 16 126/61 97 Room Air 02/15/17 11:15 97 Room Air 02/15/17 09:14 36.8 67 18 115/77 97 Room Air General Appearance: no apparent distress (sitting on the edge of bed eating dinner ) Head: normocephalic, atraumatic Eyes: normal inspection, sclerae normal ENT: hearing grossly normal Neck: supple, no JVD Respiratory/Chest: lungs clear, normal breath sounds, no respiratory distress Cardiovascular: regular rate, rhythm, no edema, normal peripheral pulses Abdomen/GI: normal bowel sounds, non tender, soft Back: + pertinent finding (para spinal tenderness starting at the low thoracic spine extending down the lumbar spine; left SI joint tenderness: BLLE strength strong and equal ) Extremities/Musculoskelatal: + pertinent finding (site of prior abscess on the dorsal aspect of the right hand scabbed over and healing well - no drainage or surrounding erythema) Neurologic/Psych: no motor/sensory deficits, alert, normal mood/affect, oriented x 3 Skin: normal color, warm/dry Diagnostics Laboratory Results Results Past 24 Hours Test 02/15/17 10:25 02/15/17 10:55 02/15/17 11:01 Range/Units Urine Color YELLOW Urine Appearance CLEAR CLEAR Urine pH 5.0 4.5-7.5 Urine Specific [place] 1.020 1.000-1.030 Urine Protein NEG NEG Urine Glucose (UA) NEG NEG Urine Ketones NEG NEG Urine Occult Blood NEG NEG Urine Nitrite NEG NEG Urine Bilirubin NEG NEG Urine Urobilinogen NEG NEG Urine Leukocyte Esterase NEG NEG White Blood Count 10.54 4.8-10.8 K/uL Red Blood Count 4.67 4.7-6.1 M/uL Hemoglobin 14.0 14.0-18.0 g/dL Hematocrit 42.9 42-52 % Mean Corpuscular Volume 91.9 80-100 fL Mean Corpuscular Hemoglobin 30.0 25-34 pg Mean Corpuscular Hemoglobin Concent 32.6 32-36 g/dl Platelet Count 288 130-400 K/uL Mean Platelet Volume 9.7 7.4-10.4 fL Neutrophils (%) (Auto) 69.7 % Lymphocytes (%) (Auto) 24.5 % Monocytes (%) (Auto) 3.7 % Eosinophils (%) (Auto) 1.6 % Basophils (%) (Auto) 0.1 % Neutrophils # (Auto) 7.35 1.4-6.5 K/uL Lymphocytes # (Auto) 2.58 1.2-3.4 K/uL Monocytes # (Auto) 0.39 0.11-0.59 K/uL Eosinophils # (Auto) 0.17 0-0.5 K/uL Basophils # (Auto) 0.01 0-0.2 K/uL RDW Standard Deviation 47.5 36.4-46.3 fL RDW Coefficient of Variation 14.1 11.5-14.5 % Immature Granulocyte % (Auto) 0.4 % Immature Granulocyte # (Auto) 0.04 0.00-0.02 K/uL Erythrocyte Sedimentation Rate 6 0-14 mm/hr Sodium Level 140 136-145 mmol/L Potassium Level 3.9 3.5-5.1 mmol/L Chloride Level 109 98-107 mmol/L Carbon Dioxide Level 27 21-32 mmol/L Anion Gap 4.0 3-11 mmol/L Blood Urea Nitrogen 11 7-18 mg/dl Creatinine 0.91 0.60-1.40 mg/dl Est Creatinine Clear Calc Drug Dose 101.9 ml/min Estimated GFR () 122.6 Estimated GFR (Non- 105.8 BUN/Creatinine Ratio 11.5 10-20 Random Glucose 88 70-99 mg/dl Calcium Level 9.4 8.5-10.1 mg/dl Total Bilirubin 0.3 0.2-1 mg/dl Direct Bilirubin < 0.1 0-0.2 mg/dl Aspartate Amino Transf (AST/SGOT) 18 15-37 U/L Alanine Aminotransferase (ALT/SGPT) 33 12-78 U/L Alkaline Phosphatase 58 45-117 U/L Total Creatine Kinase 46 39-308 U/L C-Reactive Protein < 0.29 0-0.29 mg/dl Total Protein 7.2 6.4-8.2 gm/dl Albumin 3.5 3.4-5.0 gm/dl Lipase 160 73-393 U/L Lyme Disease IgG Antibody NEG NEG Lyme Disease IgM Antibody NEG NEG Lactic Acid Level 1.1 0.4-2.0 mmol/L Microbiology Results 02/15/17 Blood Culture, Received Pending 02/15/17 Blood Culture, Received Pending Diagnostic Radiology CXR IMPRESSION: No acute cardiopulmonary process. CT ABD/PELVIS IMPRESSION: No acute process within the abdomen or pelvis. LUMBAR SPINE MRI IMPRESSION: 1. No evidence for an epidural abscess. 2. Small broad-based posterior disc bulge with a focal central annular tear at L4-L5. This does not result significant central canal or neural foraminal narrowing. Impression Assessment and Plan INTRACTABLE BACK PAIN - admit to med/surg - patient presenting with intractable back pain x 1 month - lumbar spine MRI obtained in the ED shows minor disc bulge and small annular tear - no central canal compromise - will try Flexeril and Tramadol - spine ortho consult - PT/OT DIARRHEA - stool studies - CT abd/pelvis negative for acute findings RECENT RIGHT HAND INFECTION - continue cephalexin DVT PROPHYLAXIS - SQ Lovenox DISPO - The patient will be placed as observation status for now until further work up is complete. ADDENDUM: Saw/examined the patient; excessive back pain, in moderate to severe distress over this Imagining suggests a small annular tear of L4-L5. Paravertebral musculature is in spasm with tenderness diffusely, worse on the L side of lumbar spine Plan is to consult spine ortho, Dr. Goldsmith will try muscle relaxer - Flexeril Tramadol for pain Continue Keflex for the R hand infection VTE Prophylaxis VTE Risk Assessment Done? Y/N: Yes Risk Level: Moderate
[2017-02-15 21:00] VITALS: BP 135/100; PULSE 63; TEMP 36.5; O2SAT 98
[2017-02-15 21:15] VITALS: BP_SYST 102; BP_SYST 110; BP_DIAS 64; BP_DIAS 69; PULSE 60; TEMP 35.7; TEMP 36.8; O2SAT 97; Ht 170.2 cm; Wt 70.8 kg
[2017-02-15] MEDS: TRAMADOL HCL 50 MG TAB PO PRN (21:39)
[2017-02-15] MEDS: CYCLOBENZAPRINE HCL 10 MG TAB PO SCH (21:39)
[2017-02-15] MEDS: CEPHALEXIN MONOHYDRATE 500 MG CAP PO SCH (21:39)
[2017-02-15 22:47] VITALS: BP 107/67; PULSE 79; TEMP 36.8; O2SAT 97
[2017-02-15] MEDS ORDERED: IV FLUIDS COMPLETED PRN (23:45)
[2017-02-15 23:54] LABS: INR 0.9 (0.9-1.1); PROTHROMBIN TIME (PATIENT) 9.9 SECONDS (9.0-12.0)
[2017-02-16] MEDS: MoRPHine SULFATE 4 MG/ML 1 ML CARP\\VIAL IV PRN ×5 (02:27→21:25)
[2017-02-16 07:09] VITALS: BP 122/72; TEMP 36.6; O2SAT 98
[2017-02-16 07:20] LABS: HEMATOCRIT 38.7 % (42-52); MEAN CELL VOLUME 90.8 fL (80-100); MEAN CORPUSCULAR HGB CONC 33.1 g/dl (32-36); MEAN PLATELET VOLUME 9.6 fL (7.4-10.4); PLATELET COUNT 245 K/uL (130-400); RED BLOOD COUNT 4.26 M/uL (4.7-6.1)
[2017-02-16 07:54] LABS: BUN/CREATININE RATIO 13.7 (10-20); CREATININE 0.86 mg/dl (0.60-1.40); POTASSIUM 3.9 mmol/L (3.5-5.1)
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
[2017-02-16] MEDS: SACCHAROMYCES BOUL (FLORASTOR) 250 MG CAP PO SCH (09:30)
[2017-02-16] MEDS: CYCLOBENZAPRINE HCL 10 MG TAB PO SCH ×3 (09:31→21:21)
[2017-02-16] MEDS: ENOXAPARIN 40 MG/0.4 ML SYR SQ SCH (09:31)
[2017-02-16] MEDS: CEPHALEXIN MONOHYDRATE 500 MG CAP PO SCH ×4 (09:31→21:22)
--- NOTE | 2017-02-16 12:01 | DIAGNOSTIC IMAGING REPORT ---
LUMBAR SPINE 2 OR 3 VIEWS CLINICAL HISTORY: back pain, standing films pain COMPARISON STUDY: None FINDINGS: Normal alignment of the vertebral bodies. Vertebral body stature is unremarkable. Intervertebral discs are well-preserved. IMPRESSION: Negative study The above report was generated using voice recognition software. It may contain grammatical, syntax or spelling errors. Electronically signed by: Derian Jara M.D. 02/16/2017 11:59 AM Dictated Date/Time: 02/16/2017 11:59 AM
--- NOTE | 2017-02-16 12:02 | DIAGNOSTIC IMAGING REPORT ---
LUMBAR SPINE FLEX/EXT ONLY CLINICAL HISTORY: back pain, standing films pain COMPARISON STUDY: None FINDINGS: Anatomic alignment with the patient in flexion as well as extension. No evidence for subluxation. Body stature remains unremarkable. IMPRESSION: Normal exam. No evidence for positional subluxation. The above report was generated using voice recognition software. It may contain grammatical, syntax or spelling errors. Electronically signed by: Derian Jara M.D. 02/16/2017 12:01 PM Dictated Date/Time: 02/16/2017 12:00 PM
--- NOTE | 2017-02-16 12:09 | DIAGNOSTIC IMAGING REPORT ---
(RENAL)RETROPERITON COMP HISTORY: Pain left flank pain COMPARISON: None. FINDINGS: Right kidney: Maximum dimension 10.9 cm. No evidence for hydronephrosis. Normal corticomedullary differentiation and cortical thickness. Left kidney: Maximum dimension 10.7 cm. No evidence for hydronephrosis. Normal corticomedullary differentiation and cortical thickness. Bladder: No bladder wall thickening. The bilateral ureteral jets were identified. IMPRESSION: Normal renal ultrasound. The above report was generated using voice recognition software. It may contain grammatical, syntax or spelling errors. Electronically signed by: Derian Jara M.D. 02/16/2017 12:07 PM Dictated Date/Time: 02/16/2017 12:07 PM
[2017-02-16 15:36] VITALS: BP 108/64; PULSE 69; TEMP 36.7; O2SAT 97
[2017-02-16] MEDS: TRAMADOL HCL 50 MG TAB PO PRN ×2 (15:52→23:43)
[2017-02-16 16:15] VITALS: O2SAT 97
--- NOTE | 2017-02-16 20:49 | Progress Note ---
Internal Med Progress Note Date of Service: Feb 16, 2017. Provider Documentation: SUBJECTIVE: patient appears weak/tired, able to answer questions, cooperative on exam. 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 no use of accessory muscles Heart- regular rate, S1, S2 Abdomen- soft, nontender to palpation, + bowel sounds Back: left flank tender and warm, no tenderness on right flank or spine Extremities- no edema of extremities Neuro- AO x 3 ASSESSMENT & PLAN: 41 year old male who presented to the ED with back pain on 02/16/2017. Patient has had two recent admissions to [facility]. Initial was admitted 01/17 - 01/23 for right hand abscess and cellulitis. he underwent I/D. Cultures grew MSSA. Patient was discharged on cephalexin to complete a 10 day course. Patient was readmitted 02/01 - 02/05 for sepsis likely due to persistent right hand infection. He was evaluated by ID who advised a 21 day course of cephalexin. Patient reports persistent low back pain since the right hand infection developed. and pain is also radiating into the left buttock and down the left leg. -blood culture from the ED drawn on 02/15/2017 positive from gram positive cocci -unclear as to why patient continues to have positive blood culture despite extensive antibiotics in recent past and most recently on cephalexin for history of MSSA -blood culture redrawn today on 02/16/2017 -send C.diff studies as patient been on terminal carman antibiotics with history of diarrhea -will consider upgrading antibiotics if febrile, or pending blood cultures speciation and sensitivities -pain regimen and bowel regimen to prevent constipation from narcotics for back pain, continue flexeril - CT ABD/PELVIS IMPRESSION: No acute process within the abdomen or pelvis ; LUMBAR SPINE MRI IMPRESSION: 1. No evidence for an epidural abscess. 2. Small broad-based posterior disc bulge with a focal central annular tear at L4-L5. This does not result significant central canal or neural foraminal narrowing. -as per orthopedic assessment, no acute surgical interventions but orthopedics progress note also basing assessment for negative blood culture, which is not the case at this time as blood culture shows gram positive cocci -DVT prophylaxis with Lovenox 40 mg daily Vital Signs: Date Time Temp Pulse Resp B/P (MAP) Pulse Ox O2 Delivery O2 Flow Rate FiO2 02/16/17 16:15 97 Room Air 02/16/17 15:36 36.7 69 20 108/64 (79) 97 Room Air 02/16/17 08:00 Room Air 02/16/17 07:09 36.6 19 122/72 (89) 98 Room Air 02/16/17 00:08 Room Air 02/15/17 22:47 36.8 79 16 107/67 (80) 97 Room Air 02/15/17 21:15 35.7 60 18 110/69 97 Room Air 02/15/17 21:00 36.5 63 24 135/100 (112) 98 Room Air Lab Results: Results Past 24 Hours Test 02/16/17 07:00 02/16/17 12:15 Range/Units White Blood Count 7.90 4.8-10.8 K/uL Red Blood Count 4.26 4.7-6.1 M/uL Hemoglobin 12.8 14.0-18.0 g/dL Hematocrit 38.7 42-52 % Mean Corpuscular Volume 90.8 80-100 fL Mean Corpuscular Hemoglobin 30.0 25-34 pg Mean Corpuscular Hemoglobin Concent 33.1 32-36 g/dl RDW Standard Deviation 46.0 36.4-46.3 fL RDW Coefficient of Variation 14.0 11.5-14.5 % Platelet Count 245 130-400 K/uL Mean Platelet Volume 9.6 7.4-10.4 fL Sodium Level 140 136-145 mmol/L Potassium Level 3.9 3.5-5.1 mmol/L Chloride Level 108 98-107 mmol/L Carbon Dioxide Level 27 21-32 mmol/L Anion Gap 5.0 3-11 mmol/L Blood Urea Nitrogen 12 7-18 mg/dl Creatinine 0.86 0.60-1.40 mg/dl Est Creatinine Clear Calc Drug Dose 107.8 ml/min Estimated GFR () 126.6 Estimated GFR (Non- 109.2 BUN/Creatinine Ratio 13.7 10-20 Random Glucose 88 70-99 mg/dl Calcium Level 9.0 8.5-10.1 mg/dl Total Creatine Kinase 41 39-308 U/L Microbiology Results 02/16/17 Blood Culture, Received Pending 02/16/17 Blood Culture, Received Pending
[2017-02-16 23:07] VITALS: BP 97/61; PULSE 61; TEMP 36.7; O2SAT 98
[2017-02-17] MEDS: MoRPHine SULFATE 4 MG/ML 1 ML CARP\\VIAL IV PRN ×5 (03:00→20:13)
[2017-02-17 06:52] VITALS: BP 109/68; PULSE 57; TEMP 36.4; O2SAT 98
[2017-02-17] MEDS: SACCHAROMYCES BOUL (FLORASTOR) 250 MG CAP PO SCH (08:06)
[2017-02-17] MEDS: ENOXAPARIN 40 MG/0.4 ML SYR SQ SCH (08:06)
[2017-02-17] MEDS: CEPHALEXIN MONOHYDRATE 500 MG CAP PO SCH ×4 (08:06→20:51)
[2017-02-17] MEDS: CYCLOBENZAPRINE HCL 10 MG TAB PO SCH ×3 (08:06→20:51)
[2017-02-17] MEDS: TRAMADOL HCL 50 MG TAB PO PRN ×2 (09:30→15:26)
--- NOTE | 2017-02-17 10:57 | Progress Note ---
Progress Note Date of Service Feb 17, 2017. Progress Note Standing x-rays lumbar spine available for review. They do not demonstrate any instability. He demonstrated excellent alignment of disc space collapse or vacuum phenomenon. Assessment back pain. Planned this time he has have 1 blood culture demonstrated gram-positive pocket oxide. However his inflammatory markers are well within normal limits. This point have no explanation for the severity of his back pain. If he continues to struggle we may need to consider interventional pain management consultation Saturday.
[2017-02-17 15:38] VITALS: BP 108/65; PULSE 58; TEMP 36.5; O2SAT 96
[2017-02-17 22:55] VITALS: BP 107/66; PULSE 68; TEMP 36.7; O2SAT 97
--- NOTE | 2017-02-17 23:41 | Progress Note ---
Internal Med Progress Note Date of Service: Feb 17, 2017. Provider Documentation: SUBJECTIVE: patient able to be weightbearing ambulate from bed to bathroom when asked. patient reports that when he is walking he feels pain up from left lower extremity to his back OBJECTIVE: Exam: General- fatigued, speaking in full sentences, on room air Eyes- EOMI, no jaundice ENT-nontender, no oral or nasal exudates Neck- nontender, no JVD Lungs- CTABL, no crackles, no wheezing on lung auscultation. no use of accessory muscles Heart- regular rate, S1, S2 Abdomen- soft, nontender to palpation, + bowel sounds Back: left flank tender and warm, no tenderness on right flank or spine Extremities- no edema of extremities Neuro- AO x 3 ASSESSMENT & PLAN: 41 year old male who presented to the ED with back pain on 02/16/2017. Patient has had two recent admissions to [facility]. Initial was admitted 01/17 - 01/23 for right hand abscess and cellulitis. he underwent I/D. Cultures grew MSSA. Patient was discharged on cephalexin to complete a 10 day course. Patient was readmitted 02/01 - 02/05 for sepsis likely due to persistent right hand infection. He was evaluated by ID who advised a 21 day course of cephalexin. Patient reports persistent low back pain since the right hand infection developed. and pain is also radiating into the left buttock and down the left leg. -blood culture from the ED drawn on 02/15/2017 positive from gram positive cocci -unclear as to why patient continues to have positive blood culture despite extensive antibiotics in recent past and most recently on cephalexin for history of MSSA -blood culture redrawn on 02/16/2017 with results pending -send C.diff studies as patient been on supervisor intermediates antibiotics with history of diarrhea -will consider upgrading antibiotics if febrile, or pending blood cultures speciation and sensitivities -pain regimen and bowel regimen to prevent constipation from narcotics for back pain, continue flexeril - CT ABD/PELVIS IMPRESSION: No acute process within the abdomen or pelvis ; LUMBAR SPINE MRI IMPRESSION: 1. No evidence for an epidural abscess. 2. Small broad-based posterior disc bulge with a focal central annular tear at L4-L5. This does not result significant central canal or neural foraminal narrowing. -will get pain management service to evaluate on Saturday02/18/2017 for back pain -DVT prophylaxis with Lovenox 40 mg daily Vital Signs: Date Time Temp Pulse Resp B/P (MAP) Pulse Ox O2 Delivery O2 Flow Rate FiO2 02/17/17 22:55 36.7 68 18 107/66 (80) 97 Room Air 02/17/17 15:38 36.5 58 18 108/65 (79) 96 Room Air 02/17/17 15:20 Room Air 02/17/17 07:50 Room Air 02/17/17 06:52 36.4 57 16 109/68 (82) 98 Room Air 02/16/17 23:40 Room Air
[2017-02-18] MEDS: MoRPHine SULFATE 4 MG/ML 1 ML CARP\\VIAL IV PRN ×6 (00:34→22:24)
[2017-02-18 06:23] LABS: MEAN CELL VOLUME 92.5 fL (80-100); MEAN CORPUSCULAR HEMOGLOBIN 29.3 pg (25-34); MEAN CORPUSCULAR HGB CONC 31.7 g/dl (32-36); MEAN PLATELET VOLUME 9.7 fL (7.4-10.4); PLATELET COUNT 252 K/uL (130-400); RED BLOOD COUNT 4.54 M/uL (4.7-6.1); WHITE BLOOD COUNT 6.05 K/uL (4.8-10.8)
[2017-02-18 07:03] LABS: CREATININE 0.94 mg/dl (0.60-1.40)
[2017-02-18 07:09] VITALS: BP 116/74; PULSE 60; TEMP 36.5; O2SAT 97
[2017-02-18] MEDS: CYCLOBENZAPRINE HCL 10 MG TAB PO SCH (08:49)
[2017-02-18] MEDS: CEPHALEXIN MONOHYDRATE 500 MG CAP PO SCH ×4 (08:50→21:00)
[2017-02-18] MEDS: SACCHAROMYCES BOUL (FLORASTOR) 250 MG CAP PO SCH (08:50)
[2017-02-18] MEDS: ENOXAPARIN 40 MG/0.4 ML SYR SQ SCH (08:51)
[2017-02-18] MEDS ORDERED: KETOROLAC TROMETHAMINE 15 MG/ML VIAL IM SCH (10:30)
[2017-02-18] MEDS ORDERED: NURSING VERBAL MED ORDER ONE (12:30)
[2017-02-18] MEDS: KETOROLAC TROMETHAMINE 15 MG/ML VIAL IV. SCH ×2 (12:35→18:14)
--- NOTE | 2017-02-18 12:43 | Pain Management Consultation ---
Pain Management Consultation Date of Consultation Feb 18, 2017. Reason for Consultation Low back pain Pain Location 1 - History Mr. Allen is a 41-year-old male admitted for worsening back pain which began approximately 3 weeks ago status post admission for a right hand cellulitis which required debridement. The patient denied injury around the time of onset. He has history of intermittent axial low back pain but denies similar location or characteristic compared to prior. Patient indicates the pain is probably axial in the lumbar region left greater than right-sided with radiation towards the lateral hip and thigh stopping at the level of the knee. He describes the pain as an intense ache and tightness. He reports occasional shooting in spasm and characteristic pains aggravated with ambulatory activities. He denies any bowel or bladder incontinence or saddle anesthesias. Patient has remained on oral antibiotic therapy in the outpatient setting due to the right hand cellulitis and is currently on IV antibiotic therapy. He denies fevers, chills or night sweats. He denies any change in the appearance of the wound of the right hand over the past 1-2 weeks. Patient has no further constitutional complaints. Plan of care discussed with Dr. De Jesus. Past Medical: 1. Right hand infection status post surgical debridement Past Surgical: 1. Right hand debridement 2. Tonsillectomy Past Medical/Surgical History (1) Hx of tonsillectomy Family History Cancer Diabetes mellitus Heart disease Hypertension Lung disease Social / Work History Smoking Status: Current every day smoker Smokeless Tobacco Use: Yes Alcohol Use: none Drug Use: none Marital Status: Housing Status: lives with significant other Occupation: employed Allergies Coded Allergies: Shellfish (Unverified Allergy, Unknown, HIVES, 02/15/17) Erythromycin (Verified Adverse Reaction, Severe, GI UPSET & DIZZY, 02/15/17) Medications Current Inpatient Medications Medications (Trade) Dose Ordered Sig/Kamilah Route Start Time Stop Time Status Last Admin Dose Admin Ioversol (Optiray 320) 100 ml UD PRN IV 02/15/17 10:00 02/19/17 09:59 Gadobutrol (Gadavist) 7 mmol UD PRN IV 02/15/17 16:45 02/19/17 16:44 Enoxaparin Sodium (Lovenox Inj) 40 mg Q24H SQ 02/16/17 09:00 03/18/17 08:59 02/18/17 08:51 40 MG Acetaminophen (Tylenol Tab) 650 mg Q4H PRN PO 02/15/17 19:30 03/17/17 19:29 Ondansetron HCl (Zofran Inj) 4 mg Q6H PRN IV 02/15/17 19:30 03/17/17 19:29 Tramadol HCl (Ultram Tab) 50 mg Q6H PRN PO 02/15/17 19:30 03/17/17 19:29 02/17/17 15:26 50 MG Cephalexin Monohydrate (Keflex Cap) 500 mg QID PO 02/15/17 21:00 02/25/17 20:59 02/18/17 08:50 500 MG Saccharomyces Boulardii (Florastor Cap) 250 mg DAILY PO 02/16/17 09:00 03/18/17 08:59 02/18/17 08:50 250 MG Miscellaneous (Iv Fluids Completed) 1 ea PRN PRN N/A 02/15/17 23:45 02/15/18 23:44 Morphine Sulfate (MoRPHine SULFATE INJ) 4 mg Q4H PRN IV 02/16/17 02:15 03/02/17 02:14 02/18/17 08:47 4 MG Baclofen (Lioresal Tab) 10 mg TID PO 02/18/17 14:00 03/20/17 13:59 Ketorolac Tromethamine (Toradol Inj) 15 mg Q6H IV. 02/18/17 16:30 02/21/17 16:29 Miscellaneous Information (Nursing Verbal Med Order) 1 ea ONE ONCE N/A 02/18/17 12:30 02/18/17 12:31 UNV Review of Systems Patient denies complaints related to cardiac, poor, GI, , endocrine, neurologic, hepatic, renal, ENT, dermatological or musculoskeletal other than those described above in history of present illness. Physical Exam Height & Weight: Height 5 feet, 7.00 inches. Weight 70.800 (Kilograms) 156 (Pounds) Last Vital Signs Documentation Date Time Temp Pulse Resp B/P (MAP) Pulse Ox O2 Delivery O2 Flow Rate FiO2 02/18/17 07:45 Room Air 02/18/17 07:09 36.5 60 19 116/74 (88) 97 02/15/17 19:52 4.0 Exam: Gen.: Mr. Allen is lying quietly upon entering the room in no acute distress. He appears to have moderate distress with any movement. Speech and thought process appropriate. Mood and affect appropriate. Cognition intact. Right hand: Small residual 0.5 cm area erythema on the right dorsal hand over the fifth mid-distal metacarpal region without active discharge. Back/spine: Slight loss of lumbar lordosis. Significant paravertebral spasm involving the lumbar and lower thoracic location left greater than right-sided with tenderness to palpation in a slightly hyperalgesic response. No obvious focal midline or facet joint tenderness appreciated. No focal SI joint tenderness to provocative testing. Range of motion limited all planes. Lower extremities: Strength testing 5/5 and equal throughout with guarding appreciated. Straight leg raising increased axial pain bilaterally left greater than right sided. Nontender over the greater trochanter. No evidence of edema, erythema or skin breakdown. Sensation intact without deficits to sharp and dull the lower extremities. Neurologic: Cranial nerves grossly intact. Ambulatory function not witnessed. Laboratory Laboratory Results (Last CBC): 02/18/17 05:56 Imaging MRI: non enhanced, reports reviewed MRI Findings Patient: BAMBI ALLEN JR Address1: [address] [place] [address] Rec: [id number] [id number] Zip: [place] [address] Date: 1975 Sex: M Room/Bed: Ref Phy: No Doctor, Assigned SC: DANIKA Att Phy: Report #: [id number] Wendy Phy: No Doctor, Assigned Test: LSCO Admit Phy: Filler Picker: [email or web address] Interpreting Phy: Herb Mclain MD Diagnosis: BACK PAIN,WEAK,DIARRHEA Ordering Phy: Manuel Thorpe M.D. Service Date: 02/15/17 Admit Date: 02/15/17 MNE: [id number] CONF: DICTATED BY: Herb Mclain M.D.]] CC: Manuel Thorpe M.D. No Doctor, Assigned Endcc: [~ rep ct add3]] LUMBAR SPINE MRI WITH AND WITHOUT CONTRAST HISTORY: lumbar pain - r/o epidural abscess and transverse myelitis TECHNIQUE: Multiplanar multisequence MRI of the lumbar spine was performed both before and after the intravenous administration of contrast. COMPARISON: None. FINDINGS: For the purpose of the report the L5-S1 disc space will be located on axial image 27 of 30. No fracture or subluxation. Disc spaces are preserved. Mild disc desiccation at L1-L2, L3-L4, and L4-L5. The conus terminates at the L1 level. Paraspinal soft tissues are unremarkable. No abnormal enhancement. No erosions to suggest a discitis/osteomyelitis. A few small Schmorl's nodes seen within the lumbar spine. No epidural fluid collections to suggest an abscess. L1-L2: No significant central canal or neural foraminal narrowing. L2-L3: No significant central canal or neural foraminal narrowing. L3-L4: No significant central canal or neural foraminal narrowing. L4-L5: Small broad-based posterior disc bulge with a focal central annular tear. No significant central canal or neural foraminal narrowing. L5-S1: No significant central canal or neural foraminal narrowing. IMPRESSION: 1. No evidence for an epidural abscess. 2. Small broad-based posterior disc bulge with a focal central annular tear at L4-L5. This does not result significant central canal or neural foraminal narrowing. Electronically signed by: Herb Mclain M.D. 02/15/2017 5:02 PM Dictated Date/Time: 02/15/2017 4:53 PM The status of this report is Signed. Draft = Not yet reviewed or approved by Radiologist. Signed = Reviewed and approved by Radiologist. Radiology: reports reviewed Radiology Findings Patient: BAMBI ALLEN JR Address1: [address] [place] [address] Rec: [id number] [facility] [id number] Zip: [place] [address] Date: 1975 Sex: M Room/Bed: [facility] Ref Phy: No Doctor, Assigned SC: CHARY Att Phy: Chato Zavaleta M.D. Report #: [id number] Wendy Phy: No Doctor, Assigned Test: LSFEO Admit Phy: Conner Roper DO Filler Picker: MARIA FERNANDA Interpreting Phy: Derian Jara M.D. Diagnosis: INTRACTABLE BACK PAIN Ordering Phy: Abhijit Goldsmith D.O. Service Date: 02/16/17 Admit Date: 02/15/1709/08/17 MNE: PWRSCRIBE CONF: DICTATED BY: Derian Jara M.D.]] CC: Abhijit Goldsmith D.O. No Doctor, Assigned Chato Zavaleta M.D. Endcc: [~ rep ct add3]] LUMBAR SPINE FLEX/EXT ONLY CLINICAL HISTORY: back pain, standing films pain COMPARISON STUDY: None FINDINGS: Anatomic alignment with the patient in flexion as well as extension. No evidence for subluxation. Body stature remains unremarkable. IMPRESSION: Normal exam. No evidence for positional subluxation. The above report was generated using voice recognition software. It may contain grammatical, syntax or spelling errors. Electronically signed by: Derian Jara M.D. 02/16/2017 12:01 PM Dictated Date/Time: 02/16/2017 12:00 PM The status of this report is Signed. Draft = Not yet reviewed or approved by Radiologist. Signed = Reviewed and approved by Radiologist. <AttendingPhy>Chato Zavaleta M.D.</AttendingPhy> <FamilyPhy>No Doctor, Assigned< /FamilyPhy> <PrimaryPhy>No Doctor, Assigned</PrimaryPhy> <UnitNumber>[id number]< /UnitNumber> <VisitNumber Patient: BAMBI ALLEN JR Address1: [facility] Rec: [id number] Address2: Acct ID: [id number] [facility] Zip: [place] [address] Date: 1975 Sex: M Room/Bed: [facility] Ref Phy: No Doctor, Assigned SC: CHARY Att Phy: Chato Zavaleta M.D. Report #: [id number] Wendy Phy: No Doctor, Assigned Test: [id number] Admit Phy: Conner Roper DO Filler Picker: MARIA FERNANDA Interpreting Phy: Derian Jara M.D. Diagnosis: INTRACTABLE BACK PAIN Ordering Phy: Abhijit Goldsmith D.O. Service Date: 02/16/17 Admit Date: 02/15/1709/08/17 MNE: PWRSCRIBE CONF: DICTATED BY: Derian Jara M.D.]] CC: Abhijit Goldsmith,TylorO. No Doctor, Assigned Chato Zavaleta M.D. Endcc: [~ rep ct add3]] LUMBAR SPINE 2 OR 3 VIEWS CLINICAL HISTORY: back pain, standing films pain COMPARISON STUDY: None FINDINGS: Normal alignment of the vertebral bodies. Vertebral body stature is unremarkable. Intervertebral discs are well-preserved. IMPRESSION: Negative study The above report was generated using voice recognition software. It may contain grammatical, syntax or spelling errors. Electronically signed by: Derian Jara M.D. 02/16/2017 11:59 AM Dictated Date/Time: 02/16/2017 11:59 AM The status of this report is Signed. Draft = Not yet reviewed or approved by Radiologist. Signed = Reviewed and approved by Radiologist. [place] Drug Monitoring Program Search Results: patient reviewed within database Drug Monitoring Findings: Review of PDMP reveals the patient is currently receiving buprenorphine in the outpatient setting. He reported no prior history of opiate misuse/abuse and failed to mention his involvement in an outpatient buprenorphine program most recently June 2016. Opioid Risk Assessment Risk assessment performed, high risk identified Assessment 1. Intractable low back pain-suspect myofascial etiology 2. Outpatient use of buprenorphine-most recent June 2016 Recommendations 1. Imaging has failed to identify underlying etiology of present symptoms. Pain appears myofascial in nature. Recommend continued involvement with PT/OT. No indication for interventional treatment at this time. 2. Will add Toradol 15 mg every 6 hours 3 days 3. Consider addition of steroids-will lead to discretion of hospitalist service due to his recent history of right hand cellulitis 4. Review of PDMP revealed prior involvement and buprenorphine program most recently of June 2016. Patient failed to mention this upon admission. Concerned about prior history of opiate misuse/abuse and therefore recommend diminishing his opiate utilization. Would not recommend discharge with opiate therapy. 5. Will discontinue cyclobenzaprine and initiate baclofen 10 mg 3 times a day
[2017-02-18] MEDS: BACLOFEN 10 MG TAB PO SCH ×2 (13:37→21:00)
[2017-02-18 14:58] VITALS: BP 108/68; PULSE 70; TEMP 36.8; O2SAT 97
--- NOTE | 2017-02-18 15:10 | Medical Consult ---
Consultation Date of Consultation: Feb 18, 2017. Attending Physician: Chato Zavaleta M.D. Reason for Consultation: Staph species in admission blood culture History of Present Illness 41-year-old male well known to the Infectious Disease service with history of right hand abscess and cellulitis with methicillin sensitive Staph aureus, treated with oral cephalexin, with return admission for clinical picture of sepsis with negative blood cultures, discharged on cephalexin, who was now readmitted with persistent and worsening low back pain, left-sided, not controlled with current analgesics therapy. He has had MRI scan which shows no obvious source of pain and had no evidence of diskitis or epidural infection. His right hand infection has continued to improve with decrease in the swelling and erythema. No report of significant fever. Cultures are negative to date. Patient also reports persistent diarrhea with negative C diff PCR. Past Medical/Surgical History Medical Problems: (1) Axillary lymphadenopathy Status: Acute (2) Fever Status: Acute (3) Infection of right hand Status: Acute (4) Wound infection Status: Acute Medical Problems: (1) Back pain (2) No significant past medical history Surgical Problems: (1) Hx of tonsillectomy Family History Cancer Diabetes mellitus Heart disease Hypertension Lung disease Social History Smoking Status: Current Every Day Smoker Smokeless Tobacco Use: Yes Alcohol Use: none Marital Status: Housing Status: lives with family Occupation Status: employed Allergies Coded Allergies: Shellfish (Unverified Allergy, Unknown, HIVES, 02/15/17) Erythromycin (Verified Adverse Reaction, Severe, GI UPSET & DIZZY, 02/15/17) Current Inpatient Medications Current Inpatient Medications Medications (Trade) Dose Ordered Sig/Kamilah Route Start Time Stop Time Status Last Admin Dose Admin Ioversol (Optiray 320) 100 ml UD PRN IV 02/15/17 10:00 02/19/17 09:59 Gadobutrol (Gadavist) 7 mmol UD PRN IV 02/15/17 16:45 02/19/17 16:44 Enoxaparin Sodium (Lovenox Inj) 40 mg Q24H SQ 02/16/17 09:00 03/18/17 08:59 02/18/17 08:51 40 MG Acetaminophen (Tylenol Tab) 650 mg Q4H PRN PO 02/15/17 19:30 03/17/17 19:29 Ondansetron HCl (Zofran Inj) 4 mg Q6H PRN IV 02/15/17 19:30 03/17/17 19:29 Tramadol HCl (Ultram Tab) 50 mg Q6H PRN PO 02/15/17 19:30 03/17/17 19:29 02/17/17 15:26 50 MG Cephalexin Monohydrate (Keflex Cap) 500 mg QID PO 02/15/17 21:00 02/25/17 20:59 02/18/17 12:35 500 MG Saccharomyces Boulardii (Florastor Cap) 250 mg DAILY PO 02/16/17 09:00 03/18/17 08:59 02/18/17 08:50 250 MG Miscellaneous (Iv Fluids Completed) 1 ea PRN PRN N/A 02/15/17 23:45 02/15/18 23:44 Morphine Sulfate (MoRPHine SULFATE INJ) 4 mg Q4H PRN IV 02/16/17 02:15 03/02/17 02:14 02/18/17 14:27 4 MG Baclofen (Lioresal Tab) 10 mg TID PO 02/18/17 14:00 03/20/17 13:59 02/18/17 13:37 10 MG Ketorolac Tromethamine (Toradol Inj) 15 mg Q6H IV. 02/18/17 12:30 02/23/17 12:29 02/18/17 12:35 15 MG Review of Systems Constitutional: No fever, No chills Eyes: No problem reported ENT: No problem reported Respiratory: No problem reported Cardiovascular: No problem reported Musculoskeletal: + joint pain, + muscle pain Genitourinary - Male: No problem reported Neurologic: No problem reported Psychiatric: No problem reported Endocrine: No problem reported Hematologic / Lymphatic: No problem reported Integumentary: No problem reported Allergic / Immunologic: No problem reported Physical Exam Date Time Temp Pulse Resp B/P (MAP) Pulse Ox O2 Delivery O2 Flow Rate FiO2 02/18/17 14:58 36.8 70 18 108/68 (81) 97 Room Air 02/18/17 07:45 Room Air 02/18/17 07:09 36.5 60 19 116/74 (88) 97 Room Air 02/18/17 00:20 Room Air 02/17/17 22:55 36.7 68 18 107/66 (80) 97 Room Air 02/17/17 15:38 36.5 58 18 108/65 (79) 96 Room Air 02/17/17 15:20 Room Air General Appearance: WD/WN, + mild distress Head: normocephalic, atraumatic Eyes: normal inspection, EOMI, sclerae normal ENT: normal ENT inspection, pharynx normal Neck: supple, no adenopathy, thyroid normal, trachea midline Respiratory/Chest: chest non-tender, lungs clear, normal breath sounds, no respiratory distress Cardiovascular: regular rate, rhythm, no gallop, no murmur Abdomen/GI: normal bowel sounds, non tender, soft, no organomegaly Back: normal inspection, no CVA tenderness, + muscle spasm (left paravertebral) Extremities/Musculoskelatal: no calf tenderness, normal capillary refill Neurologic/Psych: alert, oriented x 3 Skin: normal color, warm/dry, no rash, + pertinent finding (right hand improved from last visit) Lymphatic: no adenopathy Laboratory Results RUN DATE: 02/18/17 [facility] LAB PAGE 1 RUN TIME: 0755 Specimen Inquiry PATIENT: GRACIELABAMBISTEPHANIE Calvillo JR LOC: CHARY U # : [id number] AGE/SX: 41/M ROOM: [facility] REG : 02/15/[address]: Chato Zavaleta M.D. : 1975 BED: 1 DIS : STATUS: ADM [place] TLOC: SPEC #: [id number] QUINTIN: 02/15/17 STATUS: RES REQ #: [id number] RECD: 02/15/[address]: Manuel Thorpe M.D. SOURCE: BLOOD ENTR: 02/15/[address]: Clair Michel, Assigned SPDESC: ORDERED: BLOOD CULTURE COMMENTS: Drawn with start of IV. Procedure Result Verified Site BLD CULT Preliminary 02/18/17-0755 Organism 1 STAPH SPECIES SENS SENSITIVITIES DEPENDENT ON FURTHER IDENTIFICATION Phoned Positive Blood Culture Gram Stain Report to RADHA CRUZ on 02/16/17 At 0718 By SAYDA. Results were verbalized back to SAYDA. Last 24 Hours Test 02/18/17 05:56 White Blood Count 6.05 K/uL Red Blood Count 4.54 M/uL Hemoglobin 13.3 g/dL Hematocrit 42.0 % Mean Corpuscular Volume 92.5 fL Mean Corpuscular Hemoglobin 29.3 pg Mean Corpuscular Hemoglobin Concent 31.7 g/dl RDW Standard Deviation 47.0 fL RDW Coefficient of Variation 13.9 % Platelet Count 252 K/uL Mean Platelet Volume 9.7 fL Creatinine 0.94 mg/dl Est Creatinine Clear Calc Drug Dose 98.7 ml/min Estimated GFR () 117.9 Estimated GFR (Non- 101.7 Patient Name: BAMBI OWENS JR Unit Number: [id number] Dictated: 02/15/171652 Transcribed: 02/15/171652 [employer] Printed Date/Time: [~ rep prt dt]/[~ rep prt tm] [~ rep ct labl] - [~ rep ct ivnm] [facility] [place] [address] Dictated: 02/15/171652 Transcribed: 02/15/171652 [employer] Printed Date/Time: [~ rep prt dt]/[~ rep prt tm] [~ rep ct labl] - [~ rep ct ivnm] LUMBAR SPINE MRI WITH AND WITHOUT CONTRAST HISTORY: lumbar pain - r/o epidural abscess and transverse myelitis TECHNIQUE: Multiplanar multisequence MRI of the lumbar spine was performed both before and after the intravenous administration of contrast. COMPARISON: None. FINDINGS: For the purpose of the report the L5-S1 disc space will be located on axial image 27 of 30. No fracture or subluxation. Disc spaces are preserved. Mild disc desiccation at L1-L2, L3-L4, and L4-L5. The conus terminates at the L1 level. Paraspinal soft tissues are unremarkable. No abnormal enhancement. No erosions to suggest a discitis/osteomyelitis. A few small Schmorl's nodes seen within the lumbar spine. No epidural fluid collections to suggest an abscess. L1-L2: No significant central canal or neural foraminal narrowing. L2-L3: No significant central canal or neural foraminal narrowing. L3-L4: No significant central canal or neural foraminal narrowing. L4-L5: Small broad-based posterior disc bulge with a focal central annular tear. No significant central canal or neural foraminal narrowing. L5-S1: No significant central canal or neural foraminal narrowing. IMPRESSION: 1. No evidence for an epidural abscess. 2. Small broad-based posterior disc bulge with a focal central annular tear at L4-L5. This does not result significant central canal or neural foraminal narrowing. Electronically signed by: Herb Mclain M.D. 02/15/2017 5:02 PM Dictated Date/Time: 02/15/2017 4:53 PM The status of this report is Signed. Draft = Not yet reviewed or approved by Radiologist. Signed = Reviewed and approved by Radiologist. <AttendingPhy></AttendingPhy> <FamilyPhy>No Doctor, Assigned</FamilyPhy> < PrimaryPhy>No Doctor, Assigned</PrimaryPhy> <UnitNumber>[id number]</UnitNumber> <VisitNumber>[id number]</VisitNumber> <PatientName>BAMBI OWENS JR</ PatientName> <DateOfBirth>1975</DateOfBirth> <Location>C.EDB</Location> < ServiceDate>02/15/17</ServiceDate> <MNE>ESINDI</MNE> <OrderingPhy>Manuel Thorpe M.D.</OrderingPhy> <OrderingPhyMNE>f rep ord dr forde</OrderingPhyMNE> <DictatingPhyMNE>f rep dict dr forde</DictatingPhyMNE> <CCListMNE>f rep ct jerie</ CCListMNE> <AdmittingPhyMNE>f pt admit dr forde</AdmittingPhyMNE> <AttendingPhyMNE >f pt attend dr forde</AttendingPhyMNE> <ConsultingPhyMNE>f pt consult dr forde</ConsultingPhyMNE> <FamilyPhyMNE>f pt fam dr forde</FamilyPhyMNE> <OtherPhyMNE>f pt other dr forde</OtherPhyMNE> < PrimaryPhyMNE>f pt prim care dr forde</PrimaryPhyMNE> <ReferringPhyMNE>f pt referring dr forde</ReferringPhyMNE> Assessment & Plan Positive blood culture for Staph, suspect contaminant but await final ID and sensitivities. No evidence of discitis or lumbar infection. Would consider soft tissue imaging e.g. CT of area of tenderness of back. Will follow.
[2017-02-18] MEDS ORDERED: KETOROLAC TROMETHAMINE 15 MG/ML VIAL IV. SCH (16:30)
[2017-02-18] MEDS: TRAMADOL HCL 50 MG TAB PO PRN (18:14)
--- NOTE | 2017-02-18 18:41 | Progress Note ---
Internal Med Progress Note Date of Service: Feb 18, 2017. Provider Documentation: SUBJECTIVE: patient went outside with in wheelchair. reports less discomfort when sitting down (i.e. falling onto the seat) vs sitting up on own power. OBJECTIVE: Exam: General- NAD Eyes- EOMI, no jaundice ENT-nontender, no oral or nasal exudates Neck- nontender, no JVD Lungs- CTABL, no crackles, no wheezing on lung auscultation. no use of accessory muscles Heart- regular rate, S1, S2 Abdomen- soft, nontender to palpation, + bowel sounds Back: left flank tender and warm, no tenderness on right flank or spine Extremities- no edema of extremities Neuro- AO x 3 ASSESSMENT & PLAN: 41 year old male who presented to the ED with back pain on 02/16/2017. Patient has had two recent admissions to [facility]. Initial was admitted 01/17 - 01/23 for right hand abscess and cellulitis. he underwent I/D. Cultures grew MSSA. Patient was discharged on cephalexin to complete a 10 day course. Patient was readmitted 02/01 - 02/05 for sepsis likely due to persistent right hand infection. He was evaluated by ID who advised a 21 day course of cephalexin. Patient reports persistent low back pain since the right hand infection developed. and pain is also radiating into the left buttock and down the left leg. low back pain as per pain management 1. Imaging has failed to identify underlying etiology of present symptoms. Pain appears myofascial in nature. Recommend continued involvement with PT/OT. No indication for interventional treatment at this time. 2. Will add Toradol 15 mg every 6 hours 3 days 3. Consider addition of steroids-will lead to discretion of hospitalist service due to his recent history of right hand cellulitis 4. Review of PDMP revealed prior involvement and buprenorphine program most recently of June 2016. Patient failed to mention this upon admission. Concerned about prior history of opiate misuse/abuse and therefore recommend diminishing his opiate utilization. Would not recommend discharge with opiate therapy. 5. Will discontinue cyclobenzaprine and initiate baclofen 10 mg 3 times a day prior imaging - CT ABD/PELVIS IMPRESSION: No acute process within the abdomen or pelvis ; LUMBAR SPINE MRI IMPRESSION: 1. No evidence for an epidural abscess. 2. Small broad-based posterior disc bulge with a focal central annular tear at L4-L5. This does not result significant central canal or neural foraminal narrowing. Infectious Disease consult following for history of antibiotics and positive blood culture -blood culture from the ED drawn on 02/15/2017 positive from gram positive cocci, subsequent blood cultures no growth to date -unclear as to why patient continues to have positive blood culture despite extensive antibiotics in recent past and most recently on cephalexin for history of MSSA -send C.diff studies as patient been on retirement antibiotics with history of diarrhea, these studies have not been sent yet -will consider upgrading antibiotics if febrile, or pending blood cultures speciation and sensitivities -as per infectious disease Dr. Bryant, will send for CT of lower back , however in discussion with radiologist this plan is unlikely to show new findings for now DVT prophylaxis with Lovenox 40 mg daily Vital Signs: Date Time Temp Pulse Resp B/P (MAP) Pulse Ox O2 Delivery O2 Flow Rate FiO2 02/18/17 15:28 Room Air 02/18/17 14:58 36.8 70 18 108/68 (81) 97 Room Air 02/18/17 07:45 Room Air 02/18/17 07:09 36.5 60 19 116/74 (88) 97 Room Air 02/18/17 00:20 Room Air 02/17/17 22:55 36.7 68 18 107/66 (80) 97 Room Air Lab Results: Results Past 24 Hours Test 02/18/17 05:56 Range/Units White Blood Count 6.05 4.8-10.8 K/uL Red Blood Count 4.54 4.7-6.1 M/uL Hemoglobin 13.3 14.0-18.0 g/dL Hematocrit 42.0 42-52 % Mean Corpuscular Volume 92.5 80-100 fL Mean Corpuscular Hemoglobin 29.3 25-34 pg Mean Corpuscular Hemoglobin Concent 31.7 32-36 g/dl RDW Standard Deviation 47.0 36.4-46.3 fL RDW Coefficient of Variation 13.9 11.5-14.5 % Platelet Count 252 130-400 K/uL Mean Platelet Volume 9.7 7.4-10.4 fL Creatinine 0.94 0.60-1.40 mg/dl Est Creatinine Clear Calc Drug Dose 98.7 ml/min Estimated GFR () 117.9 Estimated GFR (Non- 101.7
[2017-02-18 22:54] VITALS: BP 115/72; PULSE 68; TEMP 36.7; O2SAT 98
[2017-02-19] MEDS: KETOROLAC TROMETHAMINE 15 MG/ML VIAL IV. SCH ×2 (00:40→05:56)
[2017-02-19 07:01] LABS: BASO % 0.2 %; BASO ABS # 0.01 K/uL (0-0.2); COMPLETE YES; EOS % 4.7 %; HEMATOCRIT 40.7 % (42-52); IG% 0.5 %; LYMPH % 36.2 %; LYMPH ABS # 2.24 K/uL (1.2-3.4); MEAN CELL VOLUME 90.2 fL (80-100); MEAN CORPUSCULAR HGB CONC 34.4 g/dl (32-36); MEAN PLATELET VOLUME 9.5 fL (7.4-10.4); MONO % 7.1 %; NEUT % 51.3 %; PLATELET COUNT 230 K/uL (130-400); RED BLOOD COUNT 4.51 M/uL (4.7-6.1); WHITE BLOOD COUNT 6.19 K/uL (4.8-10.8)
[2017-02-19 07:39] LABS: BUN/CREATININE RATIO 19.2 (10-20); CALCIUM 9.2 mg/dl (8.5-10.1); CREATININE 0.91 mg/dl (0.60-1.40); POTASSIUM 4.1 mmol/L (3.5-5.1)
[2017-02-19 07:42] LABS: ALB/GLOB RATIO 0.9 (0.9-2)
[2017-02-19 07:58] VITALS: BP 116/70; PULSE 62; TEMP 36.7; O2SAT 100
[2017-02-19] MEDS: SACCHAROMYCES BOUL (FLORASTOR) 250 MG CAP PO SCH (08:41)
[2017-02-19] MEDS: BACLOFEN 10 MG TAB PO SCH ×3 (08:41→21:15)
[2017-02-19] MEDS: CEPHALEXIN MONOHYDRATE 500 MG CAP PO SCH ×4 (08:41→21:15)
[2017-02-19] MEDS: ENOXAPARIN 40 MG/0.4 ML SYR SQ SCH (08:43)
[2017-02-19] MEDS: MoRPHine SULFATE 4 MG/ML 1 ML CARP\\VIAL IV PRN (08:46)
[2017-02-19] MEDS ORDERED: NURSING VERBAL MED ORDER ONE (10:15)
[2017-02-19] MEDS ORDERED: TRAMADOL HCL 50 MG TAB PO ONE (11:00)
--- NOTE | 2017-02-19 11:07 | Pain Management Progress Note ---
Pain Management Progress Note Date of Service Feb 19, 2017. Subjective Continues to complain of left sided low back pain that radiates to right posterior thigh. Has intermittent paresthesia in medial right foot. Denies any other neurological symptoms including saddle anesthesia, bowel or bladder incontinence. Has used significant amount of IV morphine over last 24 hours. 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 Denies any recent substance abuse. Pain Location 1 - Nociceptive low back pain 2 - Radiation of pain Objective Vital Signs: Last Vital Signs Documentation Date Time Temp Pulse Resp B/P (MAP) Pulse Ox O2 Delivery O2 Flow Rate FiO2 02/19/17 07:58 36.7 62 18 116/70 (85) 100 Room Air 02/15/17 19:52 4.0 Physical Exam: A/O x 3. Flat affect. In no pain in supine position but reports pain when he moves. Inspection of the lumbar spine demonstrates loss of lumbar lordosis. No lesions are noted in the lumbar spine region. Provocative testing of the facet joints causes focal pain over the distal left lumbar facet joints. Provocative testing of the sacroiliac joints produces focal pain over the left SI joint but not over the right SI joint. O myofascial tenderness or trigger points identifiable in the paraspinous musculature. Neurologically, straight leg raising is negative bilaterally past 90 and no changes noted Achilles stretch. Sensation and motor strength in the lower extremity are symmetrical without deficit. No pathologic reflexes are noted in the lower extremities. Gait was not tested. Laboratory Laboratory Findings 02/19/17 06:41 Red Blood Count 4.51 L, Mean Corpuscular Volume 90.2, Mean Corpuscular Hemoglobin 31.0, Mean Corpuscular Hemoglobin Concent 34.4, Mean Platelet Volume 9.5, Neutrophils (%) (Auto) 51.3, Lymphocytes (%) (Auto) 36.2, Monocytes (%) ( Auto) 7.1, Eosinophils (%) (Auto) 4.7, Basophils (%) (Auto) 0.2, Neutrophils # ( Auto) 3.18, Lymphocytes # (Auto) 2.24, Monocytes # (Auto) 0.44, Eosinophils # ( Auto) 0.29, Basophils # (Auto) 0.01 Imaging MRI: non enhanced, reports reviewed MRI Findings MRI of the lumbar spine: IMPRESSION: 1. No evidence for an epidural abscess. 2. Small broad-based posterior disc bulge with a focal central annular tear at L4-L5. This does not result significant central canal or neural foraminal narrowing. Electronically signed by: Herb Mclain M.D. 02/15/2017 5:02 PM Dictated Date/Time: 02/15/2017 4:53 PM Radiology: reports reviewed Radiology Findings Lumbar spine x-ray: IMPRESSION: Normal exam. No evidence for positional subluxation. [place] Drug [place] Search Results: patient reviewed within database, see additional documentation Drug Monitoring Findings: PDMP demonstrates patient has been bupronorphine with the last prescription reported in June 2016. This is inconsistent with what patient reported today. Opioid Risk Assessment Risk assessment performed, high risk identified Assessment 1. Nociceptive low back pain due to posterior elements, namely facet related pain left-sided L4/L5 or L5/S1 or possibly SI joint. 2. History of substance abuse disorder. Patient not forthcoming about his previous history of heroin use nor his bupronorphine use. 3. Right hand cellulitis. Recommendations 1. Discontinue tramadol and initiate Nucynta. Orders written. 2. DC IV morphine and initiate IV hydromorphone with decreased frequency for breakthrough analgesia 3. Initiate Medrol Dosepak for anti-inflammatory effect. Will defer this to the treating hospitalist. Discontinue IV Toradol. 4. Recommend urine screen. 5. Patient is not a candidate for any interventional therapy at the present time due to his right hand cellulitis.
[2017-02-19 11:18] VITALS: BP 118/72; PULSE 70; TEMP 36.7; O2SAT 96
[2017-02-19] MEDS: HYDROmorphone INJ 1 MG/ML SYR IV PRN ×2 (12:47→20:04)
[2017-02-19] MEDS ORDERED: METHYLPREDNISOLONE 4MG TAB, 6 DAY TAPER PO SCH (14:00)
[2017-02-19] MEDS: TAPENTADOL HCL 50 MG TAB PO PRN ×2 (14:14→18:09)
[2017-02-19 15:00] VITALS: BP 115/73; PULSE 68; TEMP 36.5; O2SAT 97
--- NOTE | 2017-02-19 15:16 | Progress Note ---
Subjective Date of Service: Feb 19, 2017. Subjective Pt evaluation today including: conversation w/ patient, physical exam, lab review, review of studies, review of inpatient medication list Saw/examined the patient in room 361 He is comfortable, laying in bed states his pain is improved with IV Dilaudid use Problem List Medical Problems: (1) Axillary lymphadenopathy Status: Acute (2) Fever Status: Acute (3) Infection of right hand Status: Acute (4) Wound infection Status: Acute Review of Systems Constitutional: No fever, No chills Respiratory: No shortness of breath Cardiac: No chest pain Musculoskeletal: + joint pain (back pain, controlled) Medications Current Inpatient Medications Medications (Trade) Dose Ordered Sig/Kamilah Route Start Time Stop Time Status Last Admin Dose Admin Gadobutrol (Gadavist) 7 mmol UD PRN IV 02/15/17 16:45 02/19/17 16:44 Enoxaparin Sodium (Lovenox Inj) 40 mg Q24H SQ 02/16/17 09:00 03/18/17 08:59 02/19/17 08:43 40 MG Acetaminophen (Tylenol Tab) 650 mg Q4H PRN PO 02/15/17 19:30 03/17/17 19:29 Ondansetron HCl (Zofran Inj) 4 mg Q6H PRN IV 02/15/17 19:30 03/17/17 19:29 Cephalexin Monohydrate (Keflex Cap) 500 mg QID PO 02/15/17 21:00 02/25/17 20:59 02/19/17 12:44 500 MG Saccharomyces Boulardii (Florastor Cap) 250 mg DAILY PO 02/16/17 09:00 03/18/17 08:59 02/19/17 08:41 250 MG Miscellaneous (Iv Fluids Completed) 1 ea PRN PRN N/A 02/15/17 23:45 02/15/18 23:44 Baclofen (Lioresal Tab) 10 mg TID PO 02/18/17 14:00 03/20/17 13:59 02/19/17 14:11 10 MG Tapentadol (Nucynta Tab) 50 mg Q4H PRN PO 02/19/17 11:15 03/21/17 11:14 02/19/17 14:14 50 MG Hydromorphone HCl (Dilaudid Inj) 1 mg Q6H PRN IV 02/19/17 11:15 03/05/17 11:14 02/19/17 12:47 1 MG Methylprednisolone (Medrol Tab) 8 mg 2100 PO 02/19/17 21:00 02/20/17 21:01 Methylprednisolone (Medrol Tab) 4 mg 13,18 PO 02/20/17 13:00 02/20/17 18:01 Methylprednisolone (Medrol Tab) 4 mg 07,13,18 PO 02/20/17 07:00 02/20/17 18:01 Methylprednisolone (Medrol Tab) 8 mg HS PO 02/20/17 21:00 02/20/17 21:01 Methylprednisolone (Medrol Tab) 4 mg 07,13,18,21 PO 02/21/17 07:00 02/21/17 21:01 Methylprednisolone (Medrol Tab) 4 mg 07,13,21 PO 02/22/17 07:00 02/22/17 21:01 Methylprednisolone (Medrol Tab) 4 mg 07,21 PO 02/23/17 07:00 02/23/17 21:01 Methylprednisolone (Medrol Tab) 4 mg 07 PO 02/24/17 07:00 02/24/17 07:01 Methylprednisolone (Medrol Tab) 16 mg 1800 PO 02/19/17 18:00 02/19/17 18:01 Objective Vital Signs Date Time Temp Pulse Resp B/P (MAP) Pulse Ox O2 Delivery O2 Flow Rate FiO2 02/19/17 11:33 Room Air 02/19/17 11:18 36.7 70 18 118/72 (87) 96 Room Air 02/19/17 09:30 Room Air 02/19/17 07:58 36.7 62 18 116/70 (85) 100 Room Air 02/18/17 23:45 Room Air 02/18/17 22:54 36.7 68 18 115/72 (86) 98 Room Air 02/18/17 15:28 Room Air Physical Exam General Appearance: no apparent distress Respiratory/Chest: lungs clear, normal breath sounds, no respiratory distress, no accessory muscle use Cardiovascular: regular rate, rhythm, no edema, no murmur Abdomen: normal bowel sounds, non tender, soft Extremities: + pertinent finding (swelling at the right lateral hand; well healing wound) Laboratory Results Last 24 Hours Test 02/19/17 06:41 White Blood Count 6.19 K/uL Red Blood Count 4.51 M/uL Hemoglobin 14.0 g/dL Hematocrit 40.7 % Mean Corpuscular Volume 90.2 fL Mean Corpuscular Hemoglobin 31.0 pg Mean Corpuscular Hemoglobin Concent 34.4 g/dl Platelet Count 230 K/uL Mean Platelet Volume 9.5 fL Neutrophils (%) (Auto) 51.3 % Lymphocytes (%) (Auto) 36.2 % Monocytes (%) (Auto) 7.1 % Eosinophils (%) (Auto) 4.7 % Basophils (%) (Auto) 0.2 % Neutrophils # (Auto) 3.18 K/uL Lymphocytes # (Auto) 2.24 K/uL Monocytes # (Auto) 0.44 K/uL Eosinophils # (Auto) 0.29 K/uL Basophils # (Auto) 0.01 K/uL RDW Standard Deviation 44.8 fL RDW Coefficient of Variation 13.7 % Immature Granulocyte % (Auto) 0.5 % Immature Granulocyte # (Auto) 0.03 K/uL Sodium Level 140 mmol/L Potassium Level 4.1 mmol/L Chloride Level 106 mmol/L Carbon Dioxide Level 28 mmol/L Anion Gap 6.0 mmol/L Blood Urea Nitrogen 18 mg/dl Creatinine 0.91 mg/dl Est Creatinine Clear Calc Drug Dose 101.9 ml/min Estimated GFR () 122.6 Estimated GFR (Non- 105.8 BUN/Creatinine Ratio 19.2 Random Glucose 93 mg/dl Calcium Level 9.2 mg/dl Total Bilirubin 0.2 mg/dl Aspartate Amino Transf (AST/SGOT) 28 U/L Alanine Aminotransferase (ALT/SGPT) 42 U/L Alkaline Phosphatase 53 U/L Total Protein 6.7 gm/dl Albumin 3.2 gm/dl Globulin 3.5 gm/dl Albumin/Globulin Ratio 0.9 Assessment and Plan INTRACTABLE BACK PAIN 02/19 appreciate pain management input Nucynta started IV morphine transitioned to IV dilaudid for now medrol dose dalton started cont. Keflex for hand cellulitis 02/18 - admit to med/surg - patient presenting with intractable back pain x 1 month - lumbar spine MRI obtained in the ED shows minor disc bulge and small annular tear - no central canal compromise - will try Flexeril and Tramadol - spine ortho consult - PT/OT DIARRHEA - stool studies - CT abd/pelvis negative for acute findings RECENT RIGHT HAND INFECTION - continue cephalexin DVT PROPHYLAXIS - SQ Lovenox DISPO - The patient will be placed as observation status for now until further work up is complete.
--- NOTE | 2017-02-19 17:47 | Infectious Disease Progress Nt ---
Progress Note Date of Service Feb 19, 2017. Subjective Pt evaluation today including: conversation w/ patient, physical exam, chart review, lab review, review of studies, conversation w/ physician practice consultant, review of inpatient medication list patient offers no new complaints. Back pain better after use of IV Dilaudid. Remains afebrile. Tolerating antibiotics without apparent difficulty. All Other Systems: Reviewed and Negative Medications Current Inpatient Medications Medications (Trade) Dose Ordered Sig/Kamilah Route Start Time Stop Time Status Last Admin Dose Admin Enoxaparin Sodium (Lovenox Inj) 40 mg Q24H SQ 02/16/17 09:00 03/18/17 08:59 02/19/17 08:43 40 MG Acetaminophen (Tylenol Tab) 650 mg Q4H PRN PO 02/15/17 19:30 03/17/17 19:29 Ondansetron HCl (Zofran Inj) 4 mg Q6H PRN IV 02/15/17 19:30 03/17/17 19:29 Cephalexin Monohydrate (Keflex Cap) 500 mg QID PO 02/15/17 21:00 02/25/17 20:59 02/19/17 17:26 500 MG Saccharomyces Boulardii (Florastor Cap) 250 mg DAILY PO 02/16/17 09:00 03/18/17 08:59 02/19/17 08:41 250 MG Miscellaneous (Iv Fluids Completed) 1 ea PRN PRN N/A 02/15/17 23:45 02/15/18 23:44 Baclofen (Lioresal Tab) 10 mg TID PO 02/18/17 14:00 03/20/17 13:59 02/19/17 14:11 10 MG Tapentadol (Nucynta Tab) 50 mg Q4H PRN PO 02/19/17 11:15 03/21/17 11:14 02/19/17 14:14 50 MG Hydromorphone HCl (Dilaudid Inj) 1 mg Q6H PRN IV 02/19/17 11:15 03/05/17 11:14 02/19/17 12:47 1 MG Methylprednisolone (Medrol Tab) 8 mg 2100 PO 02/19/17 21:00 02/20/17 21:01 Methylprednisolone (Medrol Tab) 4 mg 13,18 PO 02/20/17 13:00 02/20/17 18:01 Methylprednisolone (Medrol Tab) 4 mg 07,13,18 PO 02/20/17 07:00 02/20/17 18:01 Methylprednisolone (Medrol Tab) 8 mg HS PO 02/20/17 21:00 02/20/17 21:01 Methylprednisolone (Medrol Tab) 4 mg 07,13,18,21 PO 02/21/17 07:00 02/21/17 21:01 Methylprednisolone (Medrol Tab) 4 mg 07,13,21 PO 02/22/17 07:00 02/22/17 21:01 Methylprednisolone (Medrol Tab) 4 mg 07,21 PO 02/23/17 07:00 02/23/17 21:01 Methylprednisolone (Medrol Tab) 4 mg 07 PO 02/24/17 07:00 02/24/17 07:01 Methylprednisolone (Medrol Tab) 16 mg 1800 PO 02/19/17 18:00 02/19/17 18:01 02/19/17 17:27 16 MG Objective Vital Signs Date Time Temp Pulse Resp B/P (MAP) Pulse Ox O2 Delivery O2 Flow Rate FiO2 02/19/17 15:00 36.5 68 20 115/73 (87) 97 Room Air 02/19/17 11:33 Room Air 02/19/17 11:18 36.7 70 18 118/72 (87) 96 Room Air 02/19/17 09:30 Room Air 02/19/17 07:58 36.7 62 18 116/70 (85) 100 Room Air 02/18/17 23:45 Room Air 02/18/17 22:54 36.7 68 18 115/72 (86) 98 Room Air Physical Exam General Appearance: WD/WN, no apparent distress Eyes: normal inspection, EOMI, sclerae normal ENT: normal ENT inspection, pharynx normal Neck: supple, no adenopathy, trachea midline Respiratory/Chest: chest non-tender, lungs clear, normal breath sounds, no respiratory distress Cardiovascular: regular rate, rhythm, no gallop, no murmur Abdomen: normal bowel sounds, non tender, soft, no organomegaly Extremities: non-tender, normal capillary refill Neurologic/Psychiatric: alert, oriented x 3 Skin: normal color, no rash Lymphatic: no adenopathy Laboratory Results RUN DATE: 02/19/17 [facility] LAB PAGE 1 RUN TIME: 724 Specimen Inquiry PATIENT: BAMBI OWENS JR LOC: [facility] U # : [id number] AGE/SX: 41/M ROOM: [facility] REG : 02/18/[address]: Chato Zavaleta M.D. : 1975 BED: 1 DIS : STATUS: ADM IN TLOC: SPEC #: [id number] QUINTIN: 02/15/17 STATUS: RES REQ #: [id number] RECD: 02/15/17-[address]: Manuel Thorpe M.D. SOURCE: BLOOD ENTR: 02/15/[address]: Clair Michel, Assigned SPDESC: ORDERED: BLOOD CULTURE COMMENTS: Drawn with start of IV. Procedure Result Verified Site BLD CULT Preliminary 02/19/17-0725 Organism 1 COAG NEG STAPH NOT LUGDUNENSIS SENS NO SENSITIVITY TO FOLLOW One set of two positive. Isolation does not necessarily mean infection. No susceptibility tests performed. Contact microbiology laboratory [phone]) if further studies are indicated. Phoned Positive Blood Culture Gram Stain Report to RADHA CRUZ on 02/16/17 At 0718 By SAYDA. Results were verbalized back to SAYDA. Last 24 Hours Test 02/19/17 06:41 White Blood Count 6.19 K/uL Red Blood Count 4.51 M/uL Hemoglobin 14.0 g/dL Hematocrit 40.7 % Mean Corpuscular Volume 90.2 fL Mean Corpuscular Hemoglobin 31.0 pg Mean Corpuscular Hemoglobin Concent 34.4 g/dl Platelet Count 230 K/uL Mean Platelet Volume 9.5 fL Neutrophils (%) (Auto) 51.3 % Lymphocytes (%) (Auto) 36.2 % Monocytes (%) (Auto) 7.1 % Eosinophils (%) (Auto) 4.7 % Basophils (%) (Auto) 0.2 % Neutrophils # (Auto) 3.18 K/uL Lymphocytes # (Auto) 2.24 K/uL Monocytes # (Auto) 0.44 K/uL Eosinophils # (Auto) 0.29 K/uL Basophils # (Auto) 0.01 K/uL RDW Standard Deviation 44.8 fL RDW Coefficient of Variation 13.7 % Immature Granulocyte % (Auto) 0.5 % Immature Granulocyte # (Auto) 0.03 K/uL Sodium Level 140 mmol/L Potassium Level 4.1 mmol/L Chloride Level 106 mmol/L Carbon Dioxide Level 28 mmol/L Anion Gap 6.0 mmol/L Blood Urea Nitrogen 18 mg/dl Creatinine 0.91 mg/dl Est Creatinine Clear Calc Drug Dose 101.9 ml/min Estimated GFR () 122.6 Estimated GFR (Non- 105.8 BUN/Creatinine Ratio 19.2 Random Glucose 93 mg/dl Calcium Level 9.2 mg/dl Total Bilirubin 0.2 mg/dl Aspartate Amino Transf (AST/SGOT) 28 U/L Alanine Aminotransferase (ALT/SGPT) 42 U/L Alkaline Phosphatase 53 U/L Total Protein 6.7 gm/dl Albumin 3.2 gm/dl Globulin 3.5 gm/dl Albumin/Globulin Ratio 0.9 Assessment and Plan Positive blood culture for Coagulase-negative Staph, suspect this is contaminant. Patient should be continued on present antibiotics for now, await further imaging studies. Will follow.
[2017-02-19] MEDS ORDERED: METHYLPREDNISOLONE 4 MG TAB PO SCH (18:00)
[2017-02-19] MEDS: METHYLPREDNISOLONE 4 MG TAB PO SCH (21:16)
[2017-02-19 23:14] VITALS: BP 122/63; PULSE 78; TEMP 36.9; O2SAT 95
[2017-02-20] MEDS: TAPENTADOL HCL 50 MG TAB PO PRN ×5 (00:04→21:17)
[2017-02-20 00:38] LABS: BENZODIAZEPINE, URINE NEG (NEG); COCAINE,URINE NEG (NEG); PHENCYCLIDINE, URINE NEG (NEG)
[2017-02-20] MEDS: HYDROmorphone INJ 1 MG/ML SYR IV PRN ×2 (02:23→08:24)
[2017-02-20] MEDS: METHYLPREDNISOLONE 4 MG TAB PO SCH ×6 (06:19→21:00)
[2017-02-20 06:55] VITALS: BP 114/71; PULSE 73; TEMP 36.5; O2SAT 95
[2017-02-20] MEDS: BACLOFEN 10 MG TAB PO SCH ×3 (08:48→21:19)
[2017-02-20] MEDS: CEPHALEXIN MONOHYDRATE 500 MG CAP PO SCH ×4 (08:48→21:19)
[2017-02-20] MEDS: SACCHAROMYCES BOUL (FLORASTOR) 250 MG CAP PO SCH (08:48)
[2017-02-20] MEDS: ENOXAPARIN 40 MG/0.4 ML SYR SQ SCH (08:49)
[2017-02-20] MEDS ORDERED: SENNA 8.6 MG TAB PO ONE (10:00)
[2017-02-20] MEDS ORDERED: DOCUSATE SODIUM 100 MG CAP PO ONE (10:00)
[2017-02-20 15:00] VITALS: BP 144/73; PULSE 94; TEMP 36.7; O2SAT 94
[2017-02-20] MEDS ORDERED: NAPROXEN 250 MG TAB PO STA (17:04)
[2017-02-20] MEDS ORDERED: BISACODYL 5 MG TABEC PO PRN (17:15)
[2017-02-20] MEDS ORDERED: LIDOCAINE 4% CREAM 15 GM TUBE EXT PRN (17:15)
[2017-02-20] MEDS ORDERED: BISACODYL 5 MG TABEC PO ONE (17:15)
--- NOTE | 2017-02-20 19:43 | Progress Note ---
Subjective Date of Service: Feb 20, 2017. Subjective Pt evaluation today including: conversation w/ patient, physical exam, lab review, review of studies, review of inpatient medication list Saw/examined the patient in room 361 +pain persists at the back, now c/o pain in the upper and lateral L buttocks improves with meds, but states it persists No fevers/chills No muscle contracture Decreased/painful ROM Problem List Medical Problems: (1) Axillary lymphadenopathy Status: Acute (2) Fever Status: Acute (3) Infection of right hand Status: Acute (4) Wound infection Status: Acute Review of Systems Constitutional: No fever, No chills Respiratory: No shortness of breath Cardiac: No chest pain Musculoskeletal: + see HPI, + joint pain Heme: No abnormal bleeding/bruising Medications Current Inpatient Medications Medications (Trade) Dose Ordered Sig/Kamilah Route Start Time Stop Time Status Last Admin Dose Admin Enoxaparin Sodium (Lovenox Inj) 40 mg Q24H SQ 02/16/17 09:00 03/18/17 08:59 02/20/17 08:49 40 MG Acetaminophen (Tylenol Tab) 650 mg Q4H PRN PO 02/15/17 19:30 03/17/17 19:29 Ondansetron HCl (Zofran Inj) 4 mg Q6H PRN IV 02/15/17 19:30 03/17/17 19:29 Cephalexin Monohydrate (Keflex Cap) 500 mg QID PO 02/15/17 21:00 02/25/17 20:59 02/20/17 15:55 500 MG Saccharomyces Boulardii (Florastor Cap) 250 mg DAILY PO 02/16/17 09:00 03/18/17 08:59 02/20/17 08:48 250 MG Miscellaneous (Iv Fluids Completed) 1 ea PRN PRN N/A 02/15/17 23:45 02/15/18 23:44 Baclofen (Lioresal Tab) 10 mg TID PO 02/18/17 14:00 03/20/17 13:59 02/20/17 12:52 10 MG Tapentadol (Nucynta Tab) 50 mg Q4H PRN PO 02/19/17 11:15 03/21/17 11:14 02/20/17 15:54 50 MG Methylprednisolone (Medrol Tab) 8 mg 2100 PO 02/19/17 21:00 02/20/17 21:01 02/19/17 21:16 8 MG Methylprednisolone (Medrol Tab) 8 mg HS PO 02/20/17 21:00 02/20/17 21:01 Methylprednisolone (Medrol Tab) 4 mg 07,13,18,21 PO 02/21/17 07:00 02/21/17 21:01 Methylprednisolone (Medrol Tab) 4 mg 07,13,21 PO 02/22/17 07:00 02/22/17 21:01 Methylprednisolone (Medrol Tab) 4 mg 07,21 PO 02/23/17 07:00 02/23/17 21:01 Methylprednisolone (Medrol Tab) 4 mg 07 PO 02/24/17 07:00 02/24/17 07:01 Senna (Senokot Tab) 8.6 mg QAM PO 02/21/17 09:00 03/23/17 08:59 Docusate Sodium (coLACE CAP) 100 mg BID PO 02/20/17 21:00 03/22/17 20:59 Lidocaine (AneCream 4%) 1 appln BID PRN EXT 02/20/17 17:15 03/22/17 17:14 02/20/17 18:49 1 APPLN Naproxen (Naprosyn Tab) 250 mg BID PRN PO 02/20/17 17:15 03/22/17 17:14 Bisacodyl (Dulcolax Tab) 5 mg DAILY PRN PO 02/20/17 17:15 03/22/17 17:14 Objective Vital Signs Date Time Temp Pulse Resp B/P (MAP) Pulse Ox O2 Delivery O2 Flow Rate FiO2 02/20/17 15:00 36.7 94 20 144/73 (96) 94 Room Air 02/20/17 07:50 Room Air 02/20/17 06:55 36.5 73 18 114/71 (85) 95 Room Air 02/20/17 00:00 Room Air 02/19/17 23:14 36.9 78 16 122/63 (82) 95 Room Air Physical Exam General Appearance: + moderate distress (secondary to L lateral back pain) Respiratory/Chest: no respiratory distress, no accessory muscle use Cardiovascular: no edema Extremities: + pertinent finding (decreased, painful ROM) Laboratory Results Last 24 Hours Test 02/19/17 23:15 Urine Opiates Screen POS Urine Methadone, Qualitative NEG Urine Barbiturates NEG Urine Phencyclidine (PCP) Level NEG Ur Amphetamine/Methamphetamine NEG MDMA (Ecstasy) Screen NEG Urine Benzodiazepines Screen NEG Urine Cocaine Metabolite NEG Urine Marijuana (THC) NEG Assessment and Plan INTRACTABLE BACK PAIN 02/20 d/c'd IV dilaudid continue Nucynta, medrol dose dalton, Baclofen will try heat pad, Lidoderm cream, Naproxen PRN 02/19 appreciate pain management input Nucynta started IV morphine transitioned to IV dilaudid for now medrol dose dalton started cont. Keflex for hand cellulitis 02/18 - admit to med/surg - patient presenting with intractable back pain x 1 month - lumbar spine MRI obtained in the ED shows minor disc bulge and small annular tear - no central canal compromise - will try Flexeril and Tramadol - spine ortho consult - PT/OT DIARRHEA - stool studies - CT abd/pelvis negative for acute findings RECENT RIGHT HAND INFECTION - continue cephalexin DVT PROPHYLAXIS - SQ Lovenox DISPO - The patient will be placed as observation status for now until further work up is complete.
--- NOTE | 2017-02-20 19:43 | Infectious Disease Progress Nt ---
Progress Note Date of Service Feb 20, 2017. Subjective Pt evaluation today including: conversation w/ patient, physical exam, chart review, lab review, review of studies, conversation w/ managed services sales consultant, review of inpatient medication list Patient continues to complain of severe low back pain with localization in the left lower para-lumbar area. Remains afebrile. Follow-up blood cultures are negative to date. All Other Systems: Reviewed and Negative Medications Current Inpatient Medications Medications (Trade) Dose Ordered Sig/Kamilah Route Start Time Stop Time Status Last Admin Dose Admin Enoxaparin Sodium (Lovenox Inj) 40 mg Q24H SQ 02/16/17 09:00 03/18/17 08:59 02/20/17 08:49 40 MG Acetaminophen (Tylenol Tab) 650 mg Q4H PRN PO 02/15/17 19:30 03/17/17 19:29 Ondansetron HCl (Zofran Inj) 4 mg Q6H PRN IV 02/15/17 19:30 03/17/17 19:29 Cephalexin Monohydrate (Keflex Cap) 500 mg QID PO 02/15/17 21:00 02/25/17 20:59 02/20/17 15:55 500 MG Saccharomyces Boulardii (Florastor Cap) 250 mg DAILY PO 02/16/17 09:00 03/18/17 08:59 02/20/17 08:48 250 MG Miscellaneous (Iv Fluids Completed) 1 ea PRN PRN N/A 02/15/17 23:45 02/15/18 23:44 Baclofen (Lioresal Tab) 10 mg TID PO 02/18/17 14:00 03/20/17 13:59 02/20/17 12:52 10 MG Tapentadol (Nucynta Tab) 50 mg Q4H PRN PO 02/19/17 11:15 03/21/17 11:14 02/20/17 15:54 50 MG Methylprednisolone (Medrol Tab) 8 mg 2100 PO 02/19/17 21:00 02/20/17 21:01 02/19/17 21:16 8 MG Methylprednisolone (Medrol Tab) 8 mg HS PO 02/20/17 21:00 02/20/17 21:01 Methylprednisolone (Medrol Tab) 4 mg ,13,18,21 PO 02/21/17 07:00 02/21/17 21:01 Methylprednisolone (Medrol Tab) 4 mg 07,13,21 PO 02/22/17 07:00 02/22/17 21:01 Methylprednisolone (Medrol Tab) 4 mg ,21 PO 02/23/17 07:00 02/23/17 21:01 Methylprednisolone (Medrol Tab) 4 mg 07 PO 02/24/17 07:00 02/24/17 07:01 Senna (Senokot Tab) 8.6 mg QAM PO 02/21/17 09:00 03/23/17 08:59 Docusate Sodium (coLACE CAP) 100 mg BID PO 02/20/17 21:00 03/22/17 20:59 Lidocaine (AneCream 4%) 1 appln BID PRN EXT 02/20/17 17:15 03/22/17 17:14 02/20/17 18:49 1 APPLN Naproxen (Naprosyn Tab) 250 mg BID PRN PO 02/20/17 17:15 03/22/17 17:14 Bisacodyl (Dulcolax Tab) 5 mg DAILY PRN PO 02/20/17 17:15 03/22/17 17:14 Objective Vital Signs Date Time Temp Pulse Resp B/P (MAP) Pulse Ox O2 Delivery O2 Flow Rate FiO2 02/20/17 15:00 36.7 94 20 144/73 (96) 94 Room Air 02/20/17 07:50 Room Air 02/20/17 06:55 36.5 73 18 114/71 (85) 95 Room Air 02/20/17 00:00 Room Air 02/19/17 23:14 36.9 78 16 122/63 (82) 95 Room Air Physical Exam General Appearance: WD/WN, + mild distress Eyes: normal inspection, sclerae normal ENT: normal ENT inspection, pharynx normal Neck: supple, no adenopathy, trachea midline Respiratory/Chest: chest non-tender, lungs clear, normal breath sounds, no respiratory distress Cardiovascular: regular rate, rhythm, no gallop, no murmur Abdomen: normal bowel sounds, non tender, soft, no organomegaly Extremities: non-tender, no calf tenderness Neurologic/Psychiatric: alert, oriented x 3 Skin: normal color, warm/dry, no rash Lymphatic: no adenopathy Laboratory Results Last 24 Hours Test 02/19/17 23:15 Urine Opiates Screen POS Urine Methadone, Qualitative NEG Urine Barbiturates NEG Urine Phencyclidine (PCP) Level NEG Ur Amphetamine/Methamphetamine NEG MDMA (Ecstasy) Screen NEG Urine Benzodiazepines Screen NEG Urine Cocaine Metabolite NEG Urine Marijuana (THC) NEG Assessment and Plan Patient with recent right hand infection, on antibiotics, now with intractable left-sided back pain. Single blood culture positive for coagulase negative Staph, likely contaminant, follow-up blood cultures are negative. Would recommend reimaging the back including soft tissues to ensure no other site of infection evident. Will discuss with all involved. Will follow.
[2017-02-20] MEDS ORDERED: METHYLPREDNISOLONE 4 MG TAB PO SCH (21:00)
[2017-02-20] MEDS: DOCUSATE SODIUM 100 MG CAP PO SCH (21:18)
[2017-02-20 22:50] VITALS: BP 116/76; PULSE 83; TEMP 36.5; O2SAT 93
[2017-02-20] MEDS: NAPROXEN 250 MG TAB PO PRN (22:55)
[2017-02-21] MEDS: TAPENTADOL HCL 50 MG TAB PO PRN ×5 (01:44→21:40)
[2017-02-21 07:30] VITALS: BP 103/63; PULSE 71; TEMP 36.7; O2SAT 95
[2017-02-21] MEDS: METHYLPREDNISOLONE 4 MG TAB PO SCH ×4 (07:32→21:42)
[2017-02-21] MEDS: CEPHALEXIN MONOHYDRATE 500 MG CAP PO SCH ×4 (08:57→21:42)
[2017-02-21] MEDS: DOCUSATE SODIUM 100 MG CAP PO SCH ×2 (08:58→21:41)
[2017-02-21] MEDS: BACLOFEN 10 MG TAB PO SCH ×3 (08:58→21:41)
[2017-02-21] MEDS: SENNA 8.6 MG TAB PO SCH (08:58)
[2017-02-21] MEDS: ENOXAPARIN 40 MG/0.4 ML SYR SQ SCH (08:58)
[2017-02-21] MEDS: SACCHAROMYCES BOUL (FLORASTOR) 250 MG CAP PO SCH (08:58)
[2017-02-21 15:00] VITALS: BP 132/77; PULSE 79; TEMP 36.7; O2SAT 95
[2017-02-21] MEDS ORDERED: SENNA 8.6 MG TAB PO SCH (15:15)
[2017-02-21] MEDS: NAPROXEN 250 MG TAB PO PRN (15:28)
[2017-02-21] MEDS ORDERED: MAGNESIUM HYDROXIDE SUSP 30 ML UDC PO ONE (15:30)
--- NOTE | 2017-02-21 15:44 | Progress Note ---
Subjective Date of Service: Feb 21, 2017. Subjective Pt evaluation today including: conversation w/ patient, physical exam, lab review, review of studies, review of inpatient medication list Saw/examined the patient in room 361 Continues to complain about pain in the L lower back He tells me that he is eager to go home and could do the same thing at home He states that the pain is around a 6/10 Problem List Medical Problems: (1) Axillary lymphadenopathy Status: Acute (2) Fever Status: Acute (3) Infection of right hand Status: Acute (4) Wound infection Status: Acute Review of Systems Abdomen: + constipation, No pain, No nausea, No vomiting, No diarrhea Musculoskeletal: + joint pain (low back pain), + muscle pain Medications Current Inpatient Medications Medications (Trade) Dose Ordered Sig/Kamilah Route Start Time Stop Time Status Last Admin Dose Admin Enoxaparin Sodium (Lovenox Inj) 40 mg Q24H SQ 02/16/17 09:00 03/18/17 08:59 02/21/17 08:58 40 MG Acetaminophen (Tylenol Tab) 650 mg Q4H PRN PO 02/15/17 19:30 03/17/17 19:29 02/20/17 22:54 650 MG Ondansetron HCl (Zofran Inj) 4 mg Q6H PRN IV 02/15/17 19:30 03/17/17 19:29 Cephalexin Monohydrate (Keflex Cap) 500 mg QID PO 02/15/17 21:00 02/25/17 20:59 02/21/17 12:35 500 MG Saccharomyces Boulardii (Florastor Cap) 250 mg DAILY PO 02/16/17 09:00 03/18/17 08:59 02/21/17 08:58 250 MG Miscellaneous (Iv Fluids Completed) 1 ea PRN PRN N/A 02/15/17 23:45 02/15/18 23:44 Baclofen (Lioresal Tab) 10 mg TID PO 02/18/17 14:00 03/20/17 13:59 02/21/17 13:36 10 MG Tapentadol (Nucynta Tab) 50 mg Q4H PRN PO 02/19/17 11:15 03/21/17 11:14 02/21/17 12:39 50 MG Methylprednisolone (Medrol Tab) 4 mg 07,13,18,21 PO 02/21/17 07:00 02/21/17 21:01 02/21/17 12:35 4 MG Methylprednisolone (Medrol Tab) 4 mg 07,13,21 PO 02/22/17 07:00 02/22/17 21:01 Methylprednisolone (Medrol Tab) 4 mg 07,21 PO 02/23/17 07:00 02/23/17 21:01 Methylprednisolone (Medrol Tab) 4 mg 07 PO 02/24/17 07:00 02/24/17 07:01 Senna (Senokot Tab) 8.6 mg QAM PO 02/21/17 09:00 03/23/17 08:59 02/21/17 08:58 8.6 MG Docusate Sodium (coLACE CAP) 100 mg BID PO 02/20/17 21:00 03/22/17 20:59 02/21/17 08:58 100 MG Lidocaine (AneCream 4%) 1 appln BID PRN EXT 02/20/17 17:15 03/22/17 17:14 02/20/17 18:49 1 APPLN Naproxen (Naprosyn Tab) 250 mg BID PRN PO 02/20/17 17:15 03/22/17 17:14 02/21/17 15:28 250 MG Bisacodyl (Dulcolax Tab) 5 mg DAILY PRN PO 02/20/17 17:15 03/22/17 17:14 Diclofenac Sodium (Voltaren 1% Top Gel) 1 appln BID EXT 02/21/17 21:00 03/23/17 20:59 Docusate Sodium (coLACE CAP) 100 mg NOW ONCE PO 02/21/17 15:45 02/21/17 15:46 02/21/17 15:28 100 MG Gabapentin (Neurontin Cap) 100 mg ONE ONCE PO 02/21/17 15:45 02/21/17 15:46 02/21/17 15:28 100 MG Objective Vital Signs Date Time Temp Pulse Resp B/P (MAP) Pulse Ox O2 Delivery O2 Flow Rate FiO2 02/21/17 07:30 36.7 71 16 103/63 (76) 95 Room Air 02/21/17 07:20 Room Air 02/20/17 22:50 36.5 83 18 116/76 (89) 93 Room Air 02/20/17 21:20 Room Air Physical Exam General Appearance: no apparent distress Extremities: + pertinent finding (left lower back pain, tenderness to touch; decreased ROM; no muscle spasm noted) Assessment and Plan INTRACTABLE BACK PAIN 02/21 added gabapentin 100mg x1 will d/c home today or tomorrow with Baclofen, Lidoderm cream, Naproxen and Gabapentin Nucynta will likely not be covered, but I can write a script 02/20 d/c'd IV dilaudid continue Nucynta, medrol dose dal[place], Baclofen will try heat pad, Lidoderm cream, Naproxen PRN 02/19 appreciate pain management input Nucynta started IV morphine transitioned to IV dilaudid for now medrol dose dalton started cont. Keflex for hand cellulitis 02/18 - admit to med/surg - patient presenting with intractable back pain x 1 month - lumbar spine MRI obtained in the ED shows minor disc bulge and small annular tear - no central canal compromise - will try Flexeril and Tramadol - spine ortho consult - PT/OT Constipation will add a bowel regimen Milk of Mag x1, senna, colace RECENT RIGHT HAND INFECTION - continue cephalexin DVT PROPHYLAXIS - SQ Lovenox DISPO - The patient will be placed as observation status for now until further work up is complete.
[2017-02-21] MEDS ORDERED: GABAPENTIN 100 MG CAP PO ONE (15:45)
[2017-02-21] MEDS ORDERED: DOCUSATE SODIUM 100 MG CAP PO ONE (15:45)
--- NOTE | 2017-02-21 17:45 | Infectious Disease Progress Nt ---
Progress Note Date of Service Feb 21, 2017. Subjective Pt evaluation today including: conversation w/ patient, physical exam, chart review, lab review, review of studies, conversation w/ showroom consultant, review of inpatient medication list Pain in left lower back unchanged. No other new complaints. Remains afebrile. All Other Systems: Reviewed and Negative Medications Current Inpatient Medications Medications (Trade) Dose Ordered Sig/Kamilah Route Start Time Stop Time Status Last Admin Dose Admin Enoxaparin Sodium (Lovenox Inj) 40 mg Q24H SQ 02/16/17 09:00 03/18/17 08:59 02/21/17 08:58 40 MG Acetaminophen (Tylenol Tab) 650 mg Q4H PRN PO 02/15/17 19:30 03/17/17 19:29 02/20/17 22:54 650 MG Ondansetron HCl (Zofran Inj) 4 mg Q6H PRN IV 02/15/17 19:30 03/17/17 19:29 Cephalexin Monohydrate (Keflex Cap) 500 mg QID PO 02/15/17 21:00 02/25/17 20:59 02/21/17 17:29 500 MG Saccharomyces Boulardii (Florastor Cap) 250 mg DAILY PO 02/16/17 09:00 03/18/17 08:59 02/21/17 08:58 250 MG Miscellaneous (Iv Fluids Completed) 1 ea PRN PRN N/A 02/15/17 23:45 02/15/18 23:44 Baclofen (Lioresal Tab) 10 mg TID PO 02/18/17 14:00 03/20/17 13:59 02/21/17 13:36 10 MG Tapentadol (Nucynta Tab) 50 mg Q4H PRN PO 02/19/17 11:15 03/21/17 11:14 02/21/17 17:29 50 MG Methylprednisolone (Medrol Tab) 4 mg 07,13,18,21 PO 02/21/17 07:00 02/21/17 21:01 02/21/17 17:30 4 MG Methylprednisolone (Medrol Tab) 4 mg 07,13,21 PO 02/22/17 07:00 02/22/17 21:01 Methylprednisolone (Medrol Tab) 4 mg 07,21 PO 02/23/17 07:00 02/23/17 21:01 Methylprednisolone (Medrol Tab) 4 mg 07 PO 02/24/17 07:00 02/24/17 07:01 Senna (Senokot Tab) 8.6 mg QAM PO 02/21/17 09:00 03/23/17 08:59 02/21/17 08:58 8.6 MG Docusate Sodium (coLACE CAP) 100 mg BID PO 02/20/17 21:00 03/22/17 20:59 02/21/17 08:58 100 MG Lidocaine (AneCream 4%) 1 appln BID PRN EXT 02/20/17 17:15 03/22/17 17:14 02/20/17 18:49 1 APPLN Naproxen (Naprosyn Tab) 250 mg BID PRN PO 02/20/17 17:15 03/22/17 17:14 02/21/17 15:28 250 MG Bisacodyl (Dulcolax Tab) 5 mg DAILY PRN PO 02/20/17 17:15 03/22/17 17:14 Diclofenac Sodium (Voltaren 1% Top Gel) 1 appln BID EXT 02/21/17 21:00 03/23/17 20:59 Objective Vital Signs Date Time Temp Pulse Resp B/P (MAP) Pulse Ox O2 Delivery O2 Flow Rate FiO2 02/21/17 15:00 36.7 79 20 132/77 (95) 95 Room Air 02/21/17 07:30 36.7 71 16 103/63 (76) 95 Room Air 02/21/17 07:20 Room Air 02/20/17 22:50 36.5 83 18 116/76 (89) 93 Room Air 02/20/17 21:20 Room Air Physical Exam General Appearance: WD/WN, + mild distress Eyes: normal inspection, sclerae normal ENT: normal ENT inspection, pharynx normal Neck: supple, no adenopathy, thyroid normal, trachea midline Respiratory/Chest: chest non-tender, lungs clear, normal breath sounds, no respiratory distress Cardiovascular: regular rate, rhythm, no gallop, no murmur Abdomen: normal bowel sounds, non tender, soft, no organomegaly Extremities: non-tender, no calf tenderness Neurologic/Psychiatric: alert, oriented x 3 Skin: normal color, no rash Lymphatic: no adenopathy Assessment and Plan Patient with recent right hand infection, on antibiotics, now with intractable left-sided back pain. Single blood culture positive for coagulase negative Staph, likely contaminant, follow-up blood cultures are negative. Patient be continued on present antibiotics. Will discuss with all involved.
[2017-02-21] MEDS ORDERED: KETOROLAC TROMETHAMINE 15 MG/ML VIAL IV. PRN (21:30)
[2017-02-21] MEDS: DICLOFENAC SOD 1% GEL 100 GM TUBE EXT SCH (21:41)
[2017-02-21 22:50] VITALS: BP 122/76; PULSE 68; TEMP 36.7; O2SAT 94
[2017-02-22 00:23] LABS: COD UR NEGATIVE NG/ML (CUTOFF=50); HYDROCOD UR NEGATIVE NG/ML (CUTOFF=50); HYDROMOR UR 1580 NG/ML (CUTOFF=50); MORPHINE UR 3590 NG/ML (CUTOFF=50); NORHYDROCODONE CONF UR NEGATIVE NG/ML (CUTOFF=50); OXYMORPH UR NEGATIVE NG/ML (CUTOFF=50)
[2017-02-22] MEDS: TAPENTADOL HCL 50 MG TAB PO PRN ×3 (04:35→13:04)
[2017-02-22] MEDS: METHYLPREDNISOLONE 4 MG TAB PO SCH ×2 (06:14→12:59)
[2017-02-22 07:30] VITALS: BP 116/71; PULSE 58; TEMP 36.5; O2SAT 97
[2017-02-22] MEDS: SACCHAROMYCES BOUL (FLORASTOR) 250 MG CAP PO SCH (08:39)
[2017-02-22] MEDS: DICLOFENAC SOD 1% GEL 100 GM TUBE EXT SCH (08:39)
[2017-02-22] MEDS: BACLOFEN 10 MG TAB PO SCH ×2 (08:39→14:09)
[2017-02-22] MEDS: SENNA 8.6 MG TAB PO SCH (08:39)
[2017-02-22] MEDS: CEPHALEXIN MONOHYDRATE 500 MG CAP PO SCH ×2 (08:39→12:59)
[2017-02-22] MEDS: DOCUSATE SODIUM 100 MG CAP PO SCH (08:39)
[2017-02-22] MEDS: ENOXAPARIN 40 MG/0.4 ML SYR SQ SCH (08:45)
[2017-02-22 14:13] VITALS: BP 116/71; PULSE 58; TEMP 36.5; O2SAT 97
--- NOTE | 2017-02-22 14:18 | Progress Note ---
Subjective Date of Service: Feb 22, 2017. Subjective Pt evaluation today including: conversation w/ patient, physical exam, lab review, review of studies, review of inpatient medication list Saw/examined the patient in room 361 He is more comfortable, laying in bed states his pain is 5/10 No radiation Problem List Medical Problems: (1) Axillary lymphadenopathy Status: Acute (2) Fever Status: Acute (3) Infection of right hand Status: Acute (4) Wound infection Status: Acute Review of Systems Respiratory: No shortness of breath Cardiac: No chest pain Musculoskeletal: + joint pain Medications Current Inpatient Medications Medications (Trade) Dose Ordered Sig/Kamilah Route Start Time Stop Time Status Last Admin Dose Admin Enoxaparin Sodium (Lovenox Inj) 40 mg Q24H SQ 02/16/17 09:00 03/18/17 08:59 02/22/17 08:45 40 MG Acetaminophen (Tylenol Tab) 650 mg Q4H PRN PO 02/15/17 19:30 03/17/17 19:29 02/20/17 22:54 650 MG Ondansetron HCl (Zofran Inj) 4 mg Q6H PRN IV 02/15/17 19:30 03/17/17 19:29 Cephalexin Monohydrate (Keflex Cap) 500 mg QID PO 02/15/17 21:00 02/25/17 20:59 02/22/17 12:59 500 MG Saccharomyces Boulardii (Florastor Cap) 250 mg DAILY PO 02/16/17 09:00 03/18/17 08:59 02/22/17 08:39 250 MG Miscellaneous (Iv Fluids Completed) 1 ea PRN PRN N/A 02/15/17 23:45 02/15/18 23:44 Baclofen (Lioresal Tab) 10 mg TID PO 02/18/17 14:00 03/20/17 13:59 02/22/17 14:09 10 MG Tapentadol (Nucynta Tab) 50 mg Q4H PRN PO 02/19/17 11:15 03/21/17 11:14 02/22/17 13:04 50 MG Methylprednisolone (Medrol Tab) 4 mg 07,13,21 PO 02/22/17 07:00 02/22/17 21:01 02/22/17 12:59 4 MG Methylprednisolone (Medrol Tab) 4 mg 07,21 PO 02/23/17 07:00 02/23/17 21:01 Methylprednisolone (Medrol Tab) 4 mg 07 PO 02/24/17 07:00 02/24/17 07:01 Senna (Senokot Tab) 8.6 mg QAM PO 02/21/17 09:00 03/23/17 08:59 02/22/17 08:39 8.6 MG Docusate Sodium (coLACE CAP) 100 mg BID PO 02/20/17 21:00 03/22/17 20:59 02/22/17 08:39 100 MG Lidocaine (AneCream 4%) 1 appln BID PRN EXT 02/20/17 17:15 03/22/17 17:14 02/20/17 18:49 1 APPLN Naproxen (Naprosyn Tab) 250 mg BID PRN PO 02/20/17 17:15 03/22/17 17:14 02/21/17 15:28 250 MG Bisacodyl (Dulcolax Tab) 5 mg DAILY PRN PO 02/20/17 17:15 03/22/17 17:14 02/22/17 07:26 5 MG Diclofenac Sodium (Voltaren 1% Top Gel) 1 appln BID EXT 02/21/17 21:00 03/23/17 20:59 02/22/17 08:39 1 APPLN Ketorolac Tromethamine (Toradol Inj) 15 mg Q6H PRN IV. 02/21/17 21:30 02/26/17 21:29 02/21/17 21:40 15 MG Objective Vital Signs Date Time Temp Pulse Resp B/P (MAP) Pulse Ox O2 Delivery O2 Flow Rate FiO2 02/22/17 07:30 36.5 58 16 116/71 (86) 97 Room Air 02/22/17 07:25 Room Air 02/21/17 23:30 Room Air 02/21/17 22:50 36.7 68 16 122/76 (91) 94 Room Air 02/21/17 15:15 Room Air 02/21/17 15:00 36.7 79 20 132/77 (95) 95 Room Air Physical Exam General Appearance: no apparent distress Respiratory/Chest: no respiratory distress, no accessory muscle use Extremities: + pertinent finding (painful ROM) Assessment and Plan INTRACTABLE BACK PAIN 02/22 will d/c home with gabapentin, Baclofen, Lidoderm cream, and Naproxen - he is agreeable to this to see pain management as an outpatient 02/21 added gabapentin 100mg x1 will d/c home today or tomorrow with Baclofen, Lidoderm cream, Naproxen and Gabapentin Nucynta will likely not be covered, but I can write a script 02/20 d/c'd IV dilaudid continue Nucynta, medrol dose dal[place], Baclofen will try heat pad, Lidoderm cream, Naproxen PRN 02/19 appreciate pain management input Nucynta started IV morphine transitioned to IV dilaudid for now medrol dose dalton started cont. Keflex for hand cellulitis 02/18 - admit to med/surg - patient presenting with intractable back pain x 1 month - lumbar spine MRI obtained in the ED shows minor disc bulge and small annular tear - no central canal compromise - will try Flexeril and Tramadol - spine ortho consult - PT/OT Constipation will add a bowel regimen Milk of Mag x1, senna, colace RECENT RIGHT HAND INFECTION - continue cephalexin DVT PROPHYLAXIS - SQ Lovenox DISPO - The patient will be placed as observation status for now until further work up is complete.
--- NOTE | 2017-02-22 14:21 | Discharge Instructions ---
Discharge Instructions Date of Service Feb 22, 2017. Admission Reason for Admission: Intractable Back Pain Discharge Discharge Diagnosis / Problem: Intractable Back Pain; R hand cellulitis Discharge Goals Goal(s): Decrease discomfort, Improve function, Diagnostic testing, Therapeutic intervention Activity Recommendations Activity Limitations: resume your previous activity . Instructions / Follow-Up Instructions / Follow-Up Please follow-up with Dr. Wiggins on February 26 at 11:00AM * You will be discharged with gabapentin for nerve pain, baclofen for muscle relaxant, and Naproxen for pain * See pain management as outpatient * Take methylprednisolone (steroid) 4mg tonight (02/22), take 4mg twice a day ( on 02/23), 4mg in the morning (02/24) Current Hospital Diet Patient's current hospital diet: Regular Diet Discharge Diet Recommended Diet: Regular Diet Pending Studies Studies pending at discharge: no Medical Emergencies . Who to Call and When: Medical Emergencies: If at any time you feel your situation is an emergency, please call 911 immediately. . Non-Emergent Contact Non-Emergency issues call your: Primary Care Provider . . "Provider Documentation" section prepared by Conner Roper. . VTE Core Measure Inpt VTE Proph given/why not?: Enoxaparin (Lovenox)SQ
[2017-02-22] MEDS ORDERED: NPR250 PO (14:25)
[2017-02-22] MEDS ORDERED: [UNRECOGNIZED DRUG - CODE] EXT (14:25)
[2017-02-22] MEDS ORDERED: ACET-1047 PO (14:25)
[2017-02-22] MEDS ORDERED: MDR4 PO (14:25)
[2017-02-22] MEDS ORDERED: LRS10 PO (14:25)
--- NOTE | 2017-02-22 14:28 | Discharge Summary ---
Discharge Summary Date of Service Feb 22, 2017. Discharge Summary Admission Date: Feb 18, 2017 at 12:54 Discharge Date: Feb 22, 2017 Discharge Disposition: Home Principal Diagnosis: Intractable Back Pain Cellulitis of the R hand Medication Reconciliation New Medications: Methylprednisolone (Methylprednisolone) 4 Mg Tab 4 MG PO UD for 3 Days, #4 TABS Acetaminophen (Mapap) 325 Mg Tab 650 MG PO Q4H PRN for Pain or Fever for 30 Days, #240 TAB Baclofen (Baclofen) 10 Mg Tab 10 MG PO TID for 10 Days, #30 TAB Lidocaine (Anecream) 45 Appln/15 Gm Cr 1 APPLN EXT BID PRN for Pain for 30 Days, #1 TUBE Naproxen (Naproxen) 250 Mg Tab 250 MG PO BID PRN for pain for 15 Days, #30 TAB Continued Medications: Cephalexin Monohydrate (Keflex) 500 Mg Cap 500 MG PO QID for 21 Days, #84 CAP Probiotic Product (Probiotic) 1 Cap Cap 1 CAP PO DAILY Admission Information HPI (per Admitting provider): 41 year old male who presents to the ED with back pain. Patient has had two recent admissions to [facility]. Initial was admitted 01/17 - 01/23 for right hand abscess and cellulitis. he underwent I/D. Cultures grew MSSA. Patient was discharged on cephalexin to complete a 10 day course. Patient was readmitted - 02/05 for sepsis likely due to persistent right hand infection. He was evaluated by ID who advised a 21 day course of cephalexin. Patient reports persistent low back pain since the right hand infection developed. Pain is also radiating into the left buttock and down the left leg. He denies any numbness or tingling to the LE. No bowel or bladder dysfunction. He denies fever and chills. He reports persistent diarrhea over the past one month as well. He denies BRBPR or dark tarry stools. He denies abdominal pain, nausea, or vomiting. He reports his right hand is healing well. No chest pain or shortness of breath. He denies lightheadedness, dizziness, diaphoresis, or syncopal events. No urinary symptoms. In the ED, patient's work up is unremarkable - labs , CT abd/pelvis, lumbar spine MRI. Patient continues to have persistent back pain despite Morphine 4mg IV x 2 and Fentanyl 50mcg. Physical Exam (per Admitting): General Appearance: no apparent distress (sitting on the edge of bed eating dinner ) Head: normocephalic, atraumatic Eyes: normal inspection, sclerae normal ENT: hearing grossly normal Neck: supple, no JVD Respiratory/Chest: lungs clear, normal breath sounds, no respiratory distress Cardiovascular: regular rate, rhythm, no edema, normal peripheral pulses Abdomen/GI: normal bowel sounds, non tender, soft Back: + pertinent finding (para spinal tenderness starting at the low thoracic spine extending down the lumbar spine; left SI joint tenderness: BLLE strength strong and equal ) Extremities/Musculoskelatal: + pertinent finding (site of prior abscess on the dorsal aspect of the right hand scabbed over and healing well - no drainage or surrounding erythema) Neurologic/Psych: no motor/sensory deficits, alert, normal mood/affect, oriented x 3 Skin: normal color, warm/dry Hospital Course INTRACTABLE BACK PAIN 02/22 will d/c home with gabapentin, Baclofen, Lidoderm cream, and Naproxen - he is agreeable to this to see pain management as an outpatient 02/21 added gabapentin 100mg x1 will d/c home today or tomorrow with Baclofen, Lidoderm cream, Naproxen and Gabapentin Nucynta will likely not be covered, but I can write a script 02/20 d/c'd IV dilaudid continue Nucynta, medrol dose dal[place], Baclofen will try heat pad, Lidoderm cream, Naproxen PRN 02/19 appreciate pain management input Nucynta started IV morphine transitioned to IV dilaudid for now medrol dose dalton started cont. Keflex for hand cellulitis 02/18 - admit to med/surg - patient presenting with intractable back pain x 1 month - lumbar spine MRI obtained in the ED shows minor disc bulge and small annular tear - no central canal compromise - will try Flexeril and Tramadol - spine ortho consult - PT/OT Constipation will add a bowel regimen Milk of Mag x1, senna, colace RECENT RIGHT HAND INFECTION - continue cephalexin DVT PROPHYLAXIS - SQ Lovenox DISPO - The patient will be placed as observation status for now until further work up is complete. Total time spent on discharge = 40 minutes This includes examination of the patient, discharge planning, medication reconciliation, and communication with other providers. Discharge Instructions Please follow-up with Dr. Wiggins on February 26 at 11:00AM * You will be discharged with gabapentin for nerve pain, baclofen for muscle relaxant, and Naproxen for pain * See pain management as outpatient * Take methylprednisolone (steroid) 4mg tonight (02/22), take 4mg twice a day ( on 02/23), 4mg in the morning (02/24)
--- NOTE | 2017-02-22 15:08 | Infectious Disease Progress Nt ---
Progress Note Date of Service Feb 22, 2017. Subjective Pt evaluation today including: conversation w/ patient, physical exam, chart review, lab review, review of studies, conversation w/ tanning consultant, review of inpatient medication list Back pain under slightly better controlled today. Remains afebrile. No other new complaints. All Other Systems: Reviewed and Negative Medications Current Inpatient Medications Medications (Trade) Dose Ordered Sig/Kamilah Route Start Time Stop Time Status Last Admin Dose Admin Enoxaparin Sodium (Lovenox Inj) 40 mg Q24H SQ 02/16/17 09:00 03/18/17 08:59 02/22/17 08:45 40 MG Acetaminophen (Tylenol Tab) 650 mg Q4H PRN PO 02/15/17 19:30 03/17/17 19:29 02/20/17 22:54 650 MG Ondansetron HCl (Zofran Inj) 4 mg Q6H PRN IV 02/15/17 19:30 03/17/17 19:29 Cephalexin Monohydrate (Keflex Cap) 500 mg QID PO 02/15/17 21:00 02/25/17 20:59 02/22/17 12:59 500 MG Saccharomyces Boulardii (Florastor Cap) 250 mg DAILY PO 02/16/17 09:00 03/18/17 08:59 02/22/17 08:39 250 MG Miscellaneous (Iv Fluids Completed) 1 ea PRN PRN N/A 02/15/17 23:45 02/15/18 23:44 Baclofen (Lioresal Tab) 10 mg TID PO 02/18/17 14:00 03/20/17 13:59 02/22/17 14:09 10 MG Tapentadol (Nucynta Tab) 50 mg Q4H PRN PO 02/19/17 11:15 03/21/17 11:14 02/22/17 13:04 50 MG Methylprednisolone (Medrol Tab) 4 mg 07,13,21 PO 02/22/17 07:00 02/22/17 21:01 02/22/17 12:59 4 MG Methylprednisolone (Medrol Tab) 4 mg 07,21 PO 02/23/17 07:00 02/23/17 21:01 Methylprednisolone (Medrol Tab) 4 mg 07 PO 02/24/17 07:00 02/24/17 07:01 Senna (Senokot Tab) 8.6 mg QAM PO 02/21/17 09:00 03/23/17 08:59 02/22/17 08:39 8.6 MG Docusate Sodium (coLACE CAP) 100 mg BID PO 02/20/17 21:00 03/22/17 20:59 02/22/17 08:39 100 MG Lidocaine (AneCream 4%) 1 appln BID PRN EXT 02/20/17 17:15 03/22/17 17:14 02/20/17 18:49 1 APPLN Naproxen (Naprosyn Tab) 250 mg BID PRN PO 02/20/17 17:15 03/22/17 17:14 02/21/17 15:28 250 MG Bisacodyl (Dulcolax Tab) 5 mg DAILY PRN PO 02/20/17 17:15 03/22/17 17:14 02/22/17 07:26 5 MG Diclofenac Sodium (Voltaren 1% Top Gel) 1 appln BID EXT 02/21/17 21:00 03/23/17 20:59 02/22/17 08:39 1 APPLN Ketorolac Tromethamine (Toradol Inj) 15 mg Q6H PRN IV. 02/21/17 21:30 02/26/17 21:29 02/21/17 21:40 15 MG Objective Vital Signs Date Time Temp Pulse Resp B/P (MAP) Pulse Ox O2 Delivery O2 Flow Rate FiO2 02/22/17 14:13 36.5 58 16 97 Room Air 02/22/17 07:30 36.5 58 16 116/71 (86) 97 Room Air 02/22/17 07:25 Room Air 02/21/17 23:30 Room Air 02/21/17 22:50 36.7 68 16 122/76 (91) 94 Room Air 02/21/17 15:15 Room Air Physical Exam General Appearance: WD/WN, no apparent distress Eyes: normal inspection, sclerae normal ENT: normal ENT inspection, pharynx normal Neck: supple, no adenopathy, trachea midline Respiratory/Chest: chest non-tender, lungs clear, normal breath sounds, no respiratory distress Cardiovascular: regular rate, rhythm, no gallop, no murmur Abdomen: normal bowel sounds, non tender, soft, no organomegaly Extremities: non-tender, no calf tenderness Neurologic/Psychiatric: alert, oriented x 3 Skin: normal color, warm/dry, no rash Lymphatic: no adenopathy Laboratory Results RUN DATE: 02/22/17 [facility] PAGE 1 RUN TIME: 0647 Specimen Inquiry PATIENT: BAMBI OWENS LOC: [facility] U # : [id number] AGE/SX: 41/M ROOM: [facility] REG : 02/18/[address]: Conner Roper DO : 1975 BED: 1 DIS : STATUS: ADM IN TLOC: SPEC #: [id number] QUINTIN: 02/16/17-1253 STATUS: COMP REQ #: [id number] RECD: 02/16/17-[address]: Chato Zavaleta M.D. SOURCE: BLOOD ENTR: 02/16/17-[address]: Abhijit Goldsmith DPatricaOPatrica SPDESC: Conner Roper DO Love, Lauren ., HODA No Doctor, Assigned ORDERED: BLOOD CULTURE Procedure Result Verified Site BLD CULT Final 02/22/17-645 NO GROWTH Patient Name: BAMBI OWENS Unit Number: [id number] Dictated: 02/16/171206 Transcribed: 02/16/171206 MS Printed Date/Time: [~ rep prt dt]/[~ rep prt tm] [~ rep ct labl] - [~ rep ct ivnm] [facility] [place] [address] Dictated: 02/16/171206 Transcribed: 02/16/17 1207 MS Printed Date/Time: [~ rep prt dt]/[~ rep prt tm] [~ rep ct labl] - [~ rep ct ivnm] (RENAL)RETROPERITON COMP HISTORY: Pain left flank pain COMPARISON: None. FINDINGS: Right kidney: Maximum dimension 10.9 cm. No evidence for hydronephrosis. Normal corticomedullary differentiation and cortical thickness. Left kidney: Maximum dimension 10.7 cm. No evidence for hydronephrosis. Normal corticomedullary differentiation and cortical thickness. Bladder: No bladder wall thickening. The bilateral ureteral jets were identified. IMPRESSION: Normal renal ultrasound. The above report was generated using voice recognition software. It may contain grammatical, syntax or spelling errors. Electronically signed by: Derian Jara M.D. 02/16/2017 12:07 PM Dictated Date/Time: 02/16/2017 12:07 PM The status of this report is Signed. Draft = Not yet reviewed or approved by Radiologist. Signed = Reviewed and approved by Radiologist. <AttendingPhy>Chato Zavaleta M.D.</AttendingPhy> <FamilyPhy>No Doctor, Assigned< /FamilyPhy> <PrimaryPhy>No Doctor, Assigned</PrimaryPhy> <UnitNumber>[id number]< /UnitNumber> <VisitNumber>[id number]</VisitNumber> <PatientName>BAMBI OWENS JR</PatientName> <DateOfBirth>1975</DateOfBirth> <Location[facility]</ Location> <ServiceDate>02/15/17</ServiceDate> <MNE>ESINDI</MNE> <OrderingPhy> Chato Zavaleta M.D.</OrderingPhy> <OrderingPhyMNE>f rep ord dr forde</OrderingPhyMNE > <DictatingPhyMNE>f rep dict dr forde</DictatingPhyMNE> <CCListMNE>f rep ct eula</ CCListMNE> <AdmittingPhyMNE>f pt admit dr forde</AdmittingPhyMNE> <AttendingPhyMNE >f pt attend dr forde</AttendingPhyMNE> <ConsultingPhyMNE>f pt consult dr forde</ConsultingPhyMNE> <FamilyPhyMNE>f pt fam dr forde</FamilyPhyMNE> <OtherPhyMNE>f pt other dr forde</OtherPhyMNE> < PrimaryPhyMNE>f pt prim care dr forde</PrimaryPhyMNE> <ReferringPhyMNE>f pt referring dr forde</ReferringPhyMNE> Assessment and Plan Patient with recent right hand infection, on antibiotics, now with intractable left-sided back pain. Single blood culture positive for coagulase negative Staph, likely contaminant, follow-up blood cultures are negative. Patient be discharged home on oral cephalexin.
[2017-02-23] MEDS ORDERED: METHYLPREDNISOLONE 4 MG TAB PO SCH (07:00)
[2017-02-24] MEDS ORDERED: METHYLPREDNISOLONE 4 MG TAB PO SCH (07:00)
== END 2017-02-22 15:40 | disposition home or self-care (01) | DRG 552 ==
LOC: C.EDB 09:06 → C.MSW 19:20 → ENRESERV 20:03 → OBSVTOIN 02-18 12:54
PROVIDERS: ADMIT Family Medicine; ATTEND Family Medicine
DX: M54.5 Low back pain (principal); L03.113 Cellulitis of right upper limb; M62.830 Muscle spasm of back; R19.7 Diarrhea, unspecified; F11.21 Opioid dependence, in remission; F17.200 Nicotine dependence, unspecified, uncomplicated; Z86.19 Personal history of other infectious and parasitic diseases; Z87.828 Personal history of other (healed) physical injury and trauma; Z79.2 Long term (current) use of antibiotics; Z83.3 Family history of diabetes mellitus; Z82.49 Family history of ischemic heart disease and other diseases of the circulatory system; Z83.6 Family history of other diseases of the respiratory system; Z88.1 Allergy status to other antibiotic agents

== ENCOUNTER 2017-02-27 14:17 | Emergency (ER) | payer OTHER ==
[~2017-02-27] VITALS: Ht 170.2 cm; Wt 71.6 kg
[~2017-02-27 14:17] MED LIST changes: +ACET-1047 PO; -LCTX PO; +LRS10 PO; +MDR4 PO; +MISCCAP80 PO; +NPR250 PO; -OXYC-57 PO; -SENN8.6T7 PO; +[UNRECOGNIZED DRUG - CODE] EXT
[2017-02-27 14:27] VITALS: TEMP 36.5; Ht 170.2 cm; Wt 71.6 kg
[2017-02-27 15:04] VITALS: O2SAT 100
[2017-02-27] MEDS ORDERED: MoRPHine SULFATE 10 MG/ML CARP/VIAL IV STA (15:09)
[2017-02-27] MEDS ORDERED: ONDANSETRON INJ 2 MG/ML 2 ML VIAL IV STA (15:09)
[2017-02-27] MEDS ORDERED: SODIUM CHLORIDE 0.9% 1000ML 1,000 ML IV STA (15:09)
--- NOTE | 2017-02-27 15:19 | EMERGENCY ROOM VISIT NOTE ---
History First contact with patient: 14:58 Chief Complaint: ABDOMINAL PAIN Stated Complaint: STOMACH PAIN, V, TROUBLE URINATING Nursing Triage Summary: Patient states last night he had upper right abdominal pain and vomiting, woke up ok and now when he eats he vomits and the pain is back in the RUQ. patient states since this morning he has felt like he needs to urinate but not much comes out. Denies diarrhea. History of Present Illness The patient is a 41 year old male who presents to the Emergency Room with complaints of abdominal pain that started yesterday. He reports the pain is in his epigastric and right upper quadrant area, started last night after eating dinner, and has been constant every since, sharp and severe, and does not radiate, rates as 6/10. He states he has been unable to get comfortable with the pain and has been up all night with nausea and vomiting. Initially he vomited up the food that he ate, ever since he has been vomiting up yellow/ green slime. He did try to drink some water this morning around 6 AM, but states he vomited right back up. He has not eaten anything since dinner last night. He states he has never had pain like this before. He also notes decreased urine output since yesterday and feels that he may be dehydrated. He denies any chest pain, shortness of breath, palpitations, dizziness or syncope, back pain, diarrhea, blood in stool, dysuria or urinary frequency. Review of Systems A complete 10 point review of systems was reviewed with the patient with pertinent positives and negatives as per history of present illness. All else were negative. Past Medical/Surgical History Medical Problems: (1) Back pain (2) No significant past medical history Surgical Problems: (1) Hx of tonsillectomy Family History Cancer Diabetes mellitus Heart disease Hypertension Lung disease Social History Smoking Status: Current Every Day Smoker Alcohol Use: none Marital Status: Housing Status: lives with family Occupation Status: employed Current/Historical Medications Scheduled Baclofen (Baclofen), 10 MG PO TID Cephalexin Monohydrate (Keflex), 500 MG PO QID Probiotic Product (Probiotic), 1 CAP PO DAILY Scheduled PRN Acetaminophen (Mapap), 650 MG PO Q4H PRN for Pain or Fever Lidocaine (Anecream), 1 APPLN EXT BID PRN for Pain Naproxen (Naproxen), 250 MG PO BID PRN for pain Allergies Coded Allergies: Shellfish (Unverified Allergy, Unknown, HIVES, 02/15/17) Erythromycin (Verified Adverse Reaction, Severe, GI UPSET & DIZZY, 02/15/17) Physical Exam Vital Signs Date Time Temp Pulse Resp B/P (MAP) Pulse Ox O2 Delivery O2 Flow Rate FiO2 02/27/17 20:49 68 16 124/78 95 Room Air 02/27/17 19:24 68 16 132/79 95 Room Air 02/27/17 18:00 72 16 124/72 95 Room Air 02/27/17 16:39 73 16 119/62 95 Room Air 02/27/17 15:27 74 02/27/17 15:04 100 Room Air 02/27/17 14:27 36.5 80 16 135/91 100 Room Air Physical Exam CONSTITUTIONAL: No acute distress, but does appear to be in significant pain, writhing in the stretcher and holding his right side. Dehydrated. Alert and oriented X 4 with normal affect. HEENT: Normocephalic, atraumatic. Pupils equal, round and reactive to light, EOMI. TMs normal. Pharynx normal. Dry mucous membranes. NECK: Supple, full active range of motion without discomfort. RESPIRATORY: Clear to auscultation bilaterally with no wheezing, crackles, rhonchi or stridor. Equal expansion bilaterally. CARDIOVASCULAR: Regular rate and rhythm with no murmurs, rubs or gallops. Normal peripheral perfusion. No edema. GASTROINTESTINAL: Moderate epigastric and right upper quadrant tenderness to palpation, positive guarding, positive Cheng sign. No CVA tenderness bilaterally. Soft, nondistended. Bowel sounds present in all quadrants. MUSCULOSKELETAL: Full range of motion of all joints without discomfort. INTEGUMENTARY: No rash or other significant dermatologic conditions noted. NEUROLOGIC: Cranial nerves II-XII grossly intact. No focal neurologic deficits noted. Medical Decision & Procedures ER Provider Diagnostic Interpretation: BILIARY ULTRASOUND CLINICAL HISTORY: Epigastric pain COMPARISON STUDY: CT scan dated 02/15/2017 FINDINGS: The gallbladder appears sonographically normal. No stones are visualized. There is no gallbladder wall thickening. The common bile duct is at the upper limits of normal diameter measuring 6 mm. No pancreatic masses are visualized. There is no hydronephrosis. No hepatic masses are evident. IMPRESSION: Normal biliary ultrasound. ----- CT ABD/PELVIS IV CONTRAST ONLY CLINICAL HISTORY: Upper abdominal pain, nausea, vomiting. COMPARISON STUDY: 02/15/2017 TECHNIQUE: Following the IV administration of 116 mL of Optiray-320, CT scan of the abdomen and pelvis was performed from the lung bases to the proximal femurs. Images are reviewed in the axial, sagittal, and coronal planes. IV contrast was administered without complication. A dose lowering technique was utilized adhering to the principles of ALARA. CT DOSE: 265.78 mGy.cm FINDINGS: Lower chest: There are minimal dependent atelectatic changes. Liver: The contrast-enhanced liver is normal in size, contour, and attenuation. There is no intrahepatic biliary ductal dilatation. The hepatic veins and portal veins are patent. Gallbladder: Unremarkable. Spleen: Normal in size and attenuation. Pancreas: Unremarkable. Adrenal glands: Unremarkable. Kidneys: There is symmetric renal cortical enhancement. The kidneys are normal in size without hydronephrosis. Bowel: There are no transition zones indicate bowel obstruction. The appendix appears normal. There is no acute diverticulitis. Peritoneum: There is no intraperitoneal free air or abdominal ascites. Vasculature: The abdominal aorta is normal in course and caliber. Adenopathy: None. Pelvic viscera: The bladder, and pelvic viscera are unremarkable. Skeletal structures: No destructive osseous lesions are seen. IMPRESSION: 1. No acute intra-abdominal or pelvic findings. 2. No acute inflammatory changes 3. Normal appendix 4. No evidence of bowel obstruction. No evidence of free air. Laboratory Results 02/27/17 15:48 Red Blood Count 5.00, Mean Corpuscular Volume 89.6, Mean Corpuscular Hemoglobin 31.8, Mean Corpuscular Hemoglobin Concent 35.5, Mean Platelet Volume 9.7, Neutrophils (%) (Auto) 68.8, Lymphocytes (%) (Auto) 22.3, Monocytes (%) (Auto) 6.2, Eosinophils (%) (Auto) 1.4, Basophils (%) (Auto) 0.1, Neutrophils # (Auto) 6.48, Lymphocytes # (Auto) 2.10, Monocytes # (Auto) 0.58, Eosinophils # (Auto) 0.13, Basophils # (Auto) 0.01 02/27/17 15:48 Test 02/27/17 15:48 02/27/17 19:00 White Blood Count 9.41 K/uL (4.8-10.8) Red Blood Count 5.00 M/uL (4.7-6.1) Hemoglobin 15.9 g/dL (14.0-18.0) Hematocrit 44.8 % (42-52) Mean Corpuscular Volume 89.6 fL (80-100) Mean Corpuscular Hemoglobin 31.8 pg (25-34) Mean Corpuscular Hemoglobin Concent 35.5 g/dl (32-36) Platelet Count 236 K/uL (130-400) Mean Platelet Volume 9.7 fL (7.4-10.4) Neutrophils (%) (Auto) 68.8 % Lymphocytes (%) (Auto) 22.3 % Monocytes (%) (Auto) 6.2 % Eosinophils (%) (Auto) 1.4 % Basophils (%) (Auto) 0.1 % Neutrophils # (Auto) 6.48 K/uL (1.4-6.5) Lymphocytes # (Auto) 2.10 K/uL (1.2-3.4) Monocytes # (Auto) 0.58 K/uL (0.11-0.59) Eosinophils # (Auto) 0.13 K/uL (0-0.5) Basophils # (Auto) 0.01 K/uL (0-0.2) RDW Standard Deviation 47.6 fL (36.4-46.3) RDW Coefficient of Variation 14.6 % (11.5-14.5) Immature Granulocyte % (Auto) 1.2 % Immature Granulocyte # (Auto) 0.11 K/uL (0.00-0.02) Anion Gap 9.0 mmol/L (3-11) Est Creatinine Clear Calc Drug Dose 120.4 ml/min Estimated GFR () 132.5 Estimated GFR (Non- 114.3 BUN/Creatinine Ratio 31.6 (10-20) Calcium Level 9.7 mg/dl (8.5-10.1) Total Bilirubin 0.6 mg/dl (0.2-1) Direct Bilirubin 0.2 mg/dl (0-0.2) Aspartate Amino Transf (AST/SGOT) 34 U/L (15-37) Alanine Aminotransferase (ALT/SGPT) 55 U/L (12-78) Alkaline Phosphatase 71 U/L (45-117) Total Protein 7.9 gm/dl (6.4-8.2) Albumin 4.2 gm/dl (3.4-5.0) Lipase 79 U/L (73-393) Urine Color YELLOW Urine Appearance CLOUDY (CLEAR) Urine pH 8.0 (4.5-7.5) Urine Specific Miller 1.014 (1.000-1.030) Urine Protein NEG (NEG) Urine Glucose (UA) NEG (NEG) Urine Ketones NEG (NEG) Urine Occult Blood NEG (NEG) Urine Nitrite NEG (NEG) Urine Bilirubin NEG (NEG) Urine Urobilinogen NEG (NEG) Urine Leukocyte Esterase NEG (NEG) Urine WBC (Auto) 0 /hpf (0-5) Urine RBC (Auto) 0-4 /hpf (0-4) Urine Hyaline Casts (Auto) 0 /lpf (0-5) Urine Epithelial Cells (Auto) 5-10 /lpf (0-5) Urine Bacteria (Auto) NEG (NEG) Medications Administered Medications (Trade) Dose Ordered Sig/Kamilah Route Start Time Stop Time Status Last Admin Dose Admin Ondansetron HCl (Zofran Inj) 4 mg NOW STAT IV 02/27/17 15:09 02/27/17 15:11 DC 02/27/17 15:34 4 MG Sodium Chloride 1,000 ml @ 999 mls/hr Q1H1M STAT IV 02/27/17 15:09 02/27/17 16:09 DC 02/27/17 15:35 999 MLS/HR Morphine Sulfate (MoRPHine SULFATE INJ) 6 mg NOW STAT IV 02/27/17 15:09 02/27/17 15:11 DC 02/27/17 15:35 6 MG Lidocaine HCl (Viscous Lidocaine 2% Soln) 20 ml STK-MED ONCE .ROUTE 02/27/17 18:35 02/27/17 18:36 DC 02/27/17 18:35 20 ML Al Hydroxide/Mg Hydroxide (Maalox Susp) 30 ml STK-MED ONCE .ROUTE 02/27/17 18:35 02/27/17 18:36 DC 02/27/17 18:35 30 ML Ondansetron HCl (ZOFRAN ODT 4MG Home Pack) 1 homepack UD ONCE PO 02/27/17 20:00 02/27/17 20:01 DC 02/27/17 20:00 1 HOMEPACK Medical Decision CC: Patient presenting with complaint of right upper quadrant abdominal pain Interpretation of Labs: No leukocytosis, no anemia, no significant electrolyte abnormalities, normal renal function, normal liver enzymes and lipase. UA negative. Differential Diagnosis: Includes, but not limited to cholecystitis, cholelithiasis, pancreatitis, gastritis, gastroenteritis, peptic ulcer disease, esophagitis, esophageal spasms, food poisoning, drug-seeking behavior. Medication Reconciliation: I attest that I have personally reviewed the patient' s current medication list. Vital signs review: I reviewed the patient's vital signs and interpret them as follows: T: Afebrile; BP: Hypertensive; HR: Within normal limits; RR: Within normal limits; Pulse Ox: Within normal limits on room air. Summary: Patient was evaluated at bedside, history of physical exam performed. Patient is alert and in no acute distress, but appears very uncomfortable and in pain, writhing in the stretcher holding his right side. He is tender in the epigastric and right upper quadrant area of the abdomen, positive Cheng sign. Abdomen is otherwise soft and nontender. Orders were placed at bedside for labs, UA, IV fluids for hydration, IV Zofran for nausea, IV morphine for pain, right upper quadrant ultrasound to evaluate for gallbladder disease. Patient discussed with Dr. Goodman, who agrees with my assessment and plan. Labs reviewed as above, no acute abnormalities. Ultrasound imaging is unremarkable and negative for any gallbladder disease. On reassessment, patient continues to complain of severe abdominal pain, writhing and moaning in the stretcher. Given his persistent symptoms, will perform CT of the abdomen/pelvis. I did discuss the patient's history of treatment with buprenorphine, which he states he has not been on for 2 years, though it appears he has most recently been on this in June of this year. I did explain to the patient that I would not give him any more narcotics for this pain, but did offer him a GI cocktail which he agreed to take. CT imaging reveals no acute abnormalities as well. Patient reassessed multiple times throughout ED stay, he does report improved pain, his nausea has been better controlled and he is now tolerating oral fluids. Given the abruptness of patient's symptoms, I suspect he may have some form of food poisoning or gastroenteritis, and educated him on further management for this. Given his history of IV heroin abuse, and a completely negative workup today, I do also have some suspicion for drug-seeking behavior versus narcotic withdrawal. Patient was instructed to follow closely with his PCP regarding his symptoms, he states that he has an appointment scheduled for this Saturday, I encouraged him to keep this. Patient was also given strict return precautions should his symptoms worsen, he verbalized understanding. Patient was discharged home in stable condition and ambulatory. [place] Drug Monitoring Program Search Results: patient reviewed within database Drug Monitoring Findings: Upon review of patient's history, it is noted that he has previously been treated on buprenorphine. When I discussed this with the patient, he states he has not been on this for over 2 years, and that he was placed on after getting out of [facility] for his IV heroin abuse history. Per the [facility], he last had a prescription for buprenorphine 8mg filled on 07/02/2016. He also had a prescription for Percocet 14 tabs filled on 02/05/2017. Impression Primary Impression: Acute gastroenteritis Departure Information Dispostion Home / Self-Care Condition GOOD Referrals No Doctor, Assigned (PCP) Patient Instructions ED Diet Vomiting Diarrhea, ED Food Poison Or Gastroenteritis, [facility] Additional Instructions You have been treated in the Emergency Department your Abdominal Pain. Laboratory results and imaging studies have ruled out any emergent causes for your abdominal pain which would warrant admission or surgery. You have been provided with Zofran to be used as needed for severe nausea or vomiting. Take one tablet by mouth, allowed to dissolve on the tongue, every 6- 8 hours as needed. You may take regular strength (325mg/tab) Tylenol (acetaminophen) 2 tabs every 4 -6 hours as needed for pain. Do not exceed 10 tablets in a 24 hour period. Avoid taking more than 3000 mg of Tylenol per day. This includes any other sources of acetaminophen you may take on a regular basis. You may also take antacids like Tums, Maalox, Mylanta, etc. to help treat your symptoms. Avoid NSAIDs like ibuprofen, Advil, Aleve, aspirin, until you are feeling back to normal. Start with a clear liquid diet, and slowly progress back to normal food as tolerated. Make sure that you drink plenty of fluids to stay well hydrated. As with any trip to the Emergency Department, you should follow-up with your Primary Care Provider from today's visit. Keep your scheduled appointment this Saturday. Return to the emergency department if your symptoms worsen, including severe worsening pain, fever/chills, worsening nausea/vomiting, vomiting blood, blood in your stool or urine.
[2017-02-27 16:03] LABS: BASO % 0.1 %; BASO ABS # 0.01 K/uL (0-0.2); COMPLETE YES; EOS % 1.4 %; HEMATOCRIT 44.8 % (42-52); IG% 1.2 %; LYMPH % 22.3 %; MEAN CELL VOLUME 89.6 fL (80-100); MEAN CORPUSCULAR HEMOGLOBIN 31.8 pg (25-34); MEAN CORPUSCULAR HGB CONC 35.5 g/dl (32-36); MEAN PLATELET VOLUME 9.7 fL (7.4-10.4); MONO % 6.2 %; NEUT % 68.8 %; PLATELET COUNT 236 K/uL (130-400); WHITE BLOOD COUNT 9.41 K/uL (4.8-10.8)
[2017-02-27 16:27] LABS: BUN/CREATININE RATIO 31.6 (10-20); CALCIUM 9.7 mg/dl (8.5-10.1); CREATININE 0.77 mg/dl (0.60-1.40); POTASSIUM 4.3 mmol/L (3.5-5.1)
--- NOTE | 2017-02-27 17:38 | DIAGNOSTIC IMAGING REPORT ---
BILIARY ULTRASOUND CLINICAL HISTORY: Epigastric pain COMPARISON STUDY: CT scan dated 02/15/2017 FINDINGS: The gallbladder appears sonographically normal. No stones are visualized. There is no gallbladder wall thickening. The common bile duct is at the upper limits of normal diameter measuring 6 mm. No pancreatic masses are visualized. There is no hydronephrosis. No hepatic masses are evident. IMPRESSION: Normal biliary ultrasound. Electronically signed by: Juanjose Stock M.D. 02/27/2017 5:37 PM Dictated Date/Time: 02/27/2017 5:32 PM
[2017-02-27] MEDS ORDERED: GI COCKTAIL PO STA (18:27)
[2017-02-27] MEDS ORDERED: LIDOCAINE HCL 2% VISC SOLN 20 ML UDC ONE (18:35)
[2017-02-27] MEDS ORDERED: ALUMINUM/MAGNESIUM SUSP 30 ML UDC ONE (18:35)
[2017-02-27] MEDS ORDERED: OPTIRAY 320 IV PRN (18:45)
[2017-02-27 19:13] LABS: URINE APPEARANCE CLOUDY (CLEAR); URINE BILIRUBIN NEG (NEG); URINE COLOR YELLOW; URINE NITRITE NEG (NEG); URINE SPECIFIC GRAVITY 1.014 (1.000-1.030); UROBILINOGEN NEG (NEG)
[2017-02-27 19:14] LABS: MANUAL MICROSCOPIC REQUIRED? NO; REVIEW REQ? NO
--- NOTE | 2017-02-27 19:31 | DIAGNOSTIC IMAGING REPORT ---
CT ABD/PELVIS IV CONTRAST ONLY CLINICAL HISTORY: Upper abdominal pain, nausea, vomiting. COMPARISON STUDY: 02/15/2017 TECHNIQUE: Following the IV administration of 116 mL of Optiray-320, CT scan of the abdomen and pelvis was performed from the lung bases to the proximal femurs. Images are reviewed in the axial, sagittal, and coronal planes. IV contrast was administered without complication. A dose lowering technique was utilized adhering to the principles of ALARA. CT DOSE: 265.78 mGy.cm FINDINGS: Lower chest: There are minimal dependent atelectatic changes. Liver: The contrast-enhanced liver is normal in size, contour, and attenuation. There is no intrahepatic biliary ductal dilatation. The hepatic veins and portal veins are patent. Gallbladder: Unremarkable. Spleen: Normal in size and attenuation. Pancreas: Unremarkable. Adrenal glands: Unremarkable. Kidneys: There is symmetric renal cortical enhancement. The kidneys are normal in size without hydronephrosis. Bowel: There are no transition zones indicate bowel obstruction. The appendix appears normal. There is no acute diverticulitis. Peritoneum: There is no intraperitoneal free air or abdominal ascites. Vasculature: The abdominal aorta is normal in course and caliber. Adenopathy: None. Pelvic viscera: The bladder, and pelvic viscera are unremarkable. Skeletal structures: No destructive osseous lesions are seen. IMPRESSION: 1. No acute intra-abdominal or pelvic findings. 2. No acute inflammatory changes 3. Normal appendix 4. No evidence of bowel obstruction. No evidence of free air. Electronically signed by: Juanjose Stock M.D. 02/27/2017 7:29 PM Dictated Date/Time: 02/27/2017 7:26 PM
[2017-02-27] MEDS ORDERED: ONDANSETRON HOME PACK 4MG OD TAB PO ONE (20:00)
[2017-02-27 20:49] VITALS: BP 124/78; PULSE 68; O2SAT 95
== END 2017-02-27 20:51 | disposition home or self-care (01) ==
LOC: C.EDB 14:18 → C.EDC 20:51
DX: K52.9 Noninfective gastroenteritis and colitis, unspecified (principal); F17.200 Nicotine dependence, unspecified, uncomplicated; Z98.890 Other specified postprocedural states; Z88.8 Allergy status to other drugs, medicaments and biological substances; Z91.018 Allergy to other foods; Z80.9 Family history of malignant neoplasm, unspecified; Z83.3 Family history of diabetes mellitus; Z82.49 Family history of ischemic heart disease and other diseases of the circulatory system